=== PATIENT | female | born 1980 | race Caucasian/White ===

== ENCOUNTER 2024-09-18 08:37 | Emergency (ER) | payer OTHER, SELFPAY ==
--- NOTE | 2024-09-18 08:41 | ECG_ITS ---
Test Date: 2024-09-18 08:46:28 Measurements Intervals Cameron Rate: 90 P: 58 CT: 156 QRS: 57 QRSD: 93 T: 51 QT: 327 QTc: 402 Interpretive Statements SINUS RHYTHM NONSPECIFIC T-WAVE ABNORMALITY No previous ECG available for comparison Electronically Signed On 09-23-2024 10:14:39 BIOCHEMICAL ENGINEER by Jaime Samuels M.D.
[2024-09-18 08:54] VITALS: BP 113/76; PULSE 93; RESP 18; TEMP 37.1; O2SAT 95
[2024-09-18 08:59] LABS: Basophils Percent Auto 0.2 % (0.2-1.2); Eosinophils Percent Auto 0.6 % (0-4.4); Hematocrit 36.8 % (37.0-47.0); Hemoglobin 12.5 g/dL (12.0-15.0); Immature Granulocyte Absolute 0.01 K/mm3 (0.00-0.031); Immature Granulocyte Percent A 0.2 % (0-0.5); Lymphocytes Absolute Auto 0.68 K/mm3 (0.9-3.2); Lymphocytes Percent Auto 13.4 % (18.3-44.2); Mean Corpuscular Hemoglobin 29.5 pg (26-34); Mean Corpuscular Volume 86.8 fl (80-100); Mean Platelet Volume 9.1 fl (7.4-10.4); Monocytes Absolute Auto 0.3 K/mm3 (0.1-0.6); Monocytes Percent Auto 6.5 % (2.6-8.5); Neutrophils Percent Auto 79.1 % (45.5-73.1); Platelet Count Result 242 k/mm3 (150-375); Red Blood Count 4.24 M/mm3 (4.2-5.4); Red Cell Distribution Width 11.4 % (11.5-14.5); White Blood Count 5.1 K/mm3 (4.5-10.0)
[2024-09-18 09:11] LABS: INR 0.9; Prothrombin Time 12.7 Seconds (11.1-14.7)
[2024-09-18 09:12] LABS: Alanine Aminotransferase 11 U/L (6-35); Albumin Level 4.2 g/dL (3.5-5.1); Alkaline Phosphatase 67 U/L (38-126); Anion Gap 4 mmol/L (4-12); Aspartate Amino Transferase 19 U/L (14-36); Bilirubin,Total 0.5 mg/dL (0.2-1.3); Blood Urea Nitrogen 13 mg/dL (7-17); Calcium 8.7 mg/dL (8.4-10.2); Carbon Dioxide 28 mmol/L (22-30); Chloride 106 mmol/L (98-107); Estimated CRCL calculation 71 ml/min; Estimated Glomerular Filt Rate > 60; Glucose 98 mg/dL (65-110); Lipase 58 U/L (23-300); Partial Thromboplastin Time 32.5 Seconds (22.3-36.8); Potassium 3.5 mmol/L (3.4-5.0); Sodium 138 mmol/L (137-145)
[2024-09-18 09:23] LABS: Troponin I < 0.012 ng/mL (0.000-0.034)
--- NOTE | 2024-09-18 09:45 | PC.NURSE ---
Patient present to the desk and states she is going to leave due to wait time. this RN informed patient to come back to the ED if symptoms persist or get worse.
--- OUTSIDE RECORDS SUMMARY | 2024-09-25 03:33 | XMS_ITS | Encounter Summary ---
Author Organization [facility] Address [facility] [place] [address] Care Team Providers Care Drill Sergeant Name Role Phone Marcelo Garcia MD Primary Care Provider [phone] Reason for Visit * Reason Comments Eye Problem 3 days with discharg e and pain Encounter Details Date Type Department Care Team (Latest Contact Info) Description 08/13/2017 10:00 AM INSPECTOR AND TESTER Office Visit [facility] [place] [address] [place] [address] Provider, [facility] Exp Nameoki Acute bacterial conjunctivitis of left eye (Primary Dx) Social History Tobacco Use Types Packs/Day Years Used Date Smoking Tobacco: Former Smokeless Tobacco: Never Sex and Gender Information Value Date Recorded Sex Assigned at Not on file Gender Identity Not on file Sexual Orientation Not on file documented as of this encounter Last Filed Vital Signs Vital Sign Reading Time Taken Comments Blood Pressure 108/58 08/13/2017 10:05 AM INSPECTOR AND TESTER Pulse 81 08/13/2017 10:05 AM INSPECTOR AND TESTER Temperature 36.8 ??C (98.2 ??F) 08/13/2017 10:[address] Respiratory Rate - - Oxygen Saturation 99% 08/13/2017 10:05 AM INSPECTOR AND TESTER Inhaled Oxygen Concentration - - Weight 65.8 kg (145 lb) 08/13/2017 10:05 AM INSPECTOR AND TESTER Height 165.1 cm (5' 5 ) 08/13/2017 10:05 AM INSPECTOR AND TESTER Body Mass Index 24.13 08/13/2017 10:05 AM INSPECTOR AND TESTER documented in this encounter Patient Instructions * Patient Instructions* Pat Reno, LITHOGRAPHIC GENERAL WORKER-MACHINE FEATHEREDGER AND REDUCER - 08/13/2017 10:30 AM INSPECTOR AND TESTER Images from the original note were not included. Conjunctivitis FIELD MARKETER: Conjunctivitis, or pink eye, is inflammation of your conjunctiva. The conjunctiva is a thin tissue that covers the front of your eye and the back of your eyelids. The conjunctiva helps protect your eye and keep it moist. Conjunctivitis may be caused by bacteria, allergies, or a virus. If your conjun ctivitis is caused by bacteria, it may get better on its own in about 7 days. Viral conjunctivitis can last up to 3 weeks. Common symptoms may include any of the following: You will usually have symptoms in both eyes if your conjunctivitis is caused by allergies. You may also have other allergic symptoms, such as a rash or runny nose. Symptoms will usually start in 1 eye if your conjunctivitis is caused by a virus or bacteria. ?? Redness in the whites of your eye ?? Itching in your eye or around your eye ?? Feeling like there is something in your eye ?? Watery or thick, sticky discharge ?? Crusty eyelids when you wake up in the morning ?? Burning, stinging, or swelling in your eye ?? Pain when you see bright light Seek care immediately if: ?? You have worsening eye pain. ?? The swelling in your eye gets worse, even after treatment. ?? Your vision suddenly becomes worse or you cannot see at all. Contact your healthcare provider if: ?? You develop a fever and ear pain. ?? You have tiny bumps or spots of blood on your eye. ?? You have questions or concerns about your condition or care. Treatment will depend on the cause of your conjunctivitis. You may need antibiotics or allergy medicine as a pill, eye drop, or eye ointment. Manage your symptoms: ?? Apply a cool compress. Wet a washcloth with cold water and place it on your eye. This will help decrease itching and irritation. ?? Do not wear contact lenses. They can irritate your eye. Throw away the pair you are using and ask when you can wear them again. Use a new pair of lenses when your healthcare provider says it is okay. ?? Avoid irritants. Stay away from smoke filled areas. Shield your eyes from wind and sun. ?? Flush your eye. You may need to flush your eye with saline to help decrease your symptoms. Ask for more information on how to flush your eye. Medicines: Treatment depends on what is causing your conjunctivitis. You may be given any of the following: ?? Allergy medicine helps decrease itchy, red, swollen eyes caused by allergies. It may be given asa pill, eye drops, or nasal spray. ?? Antibiotics may be needed if your conjunctivitis is caused by bacteria. This medicine may be given as a pill, eye drops, or eye ointment. ?? Take your medicine as directed. Contact your healthcare provider if you think your medicine is not helping or if you have side effects. Tell him or her if you are allergic to any medicine. Keep a list of the medicines, vitamins, and herbs you take. Include the amounts, and when and why you take them. Bring the list or the pill bottles to follow-up visits. Carry your medicine list with you in case of an emergency. Prevent the spread of conjunctivitis: ?? Wash your hands with soap and water often. Wash your hands before and after you touch your eyes.Also wash your hands before you prepare or eat food and after you use the bathroom or change a diaper. ?? Avoid allergens. Try to avoid the things that cause your allergies, such as pets, dust, or grass. ?? Avoid contact with others. Do not share towels or washcloths. Try to stay away from others as much as possible. Ask when you can return to work or school. ?? Throw away eye makeup. The bacteria that caused your conjunctivitis can stay in eye makeup. Throw away mascara and other eye makeup. ?? 2016 [employer]. Information is for End User's use only and may not be sold, redistributed or otherwise used for commercial purposes. All illustrations and images included in CareNotes?? are the copyrighted property of [employer] or [employer]. The above information is an caterer's aide only. It is not intended as medical advice for individual conditions or treatments. Talk to your doctor, nurse or pharmacist before following any medical regimen to see if it is safe and effective for you. Ciprofloxacin (Into the eye) Ciprofloxacin (fqh-wgw-XSOR-a-sin) Treats eye infections. This medicine is a quinolone antibiotic. Brand Name(s): Ciloxan There may be other brand names for this medicine. When This Medicine Should Not Be Used: This medicine is not right for everyone. Do not use it if you had an allergic reaction to ciprofloxacin or other quinolone antibiotics. How to Use This Medicine: Ointment, Drop ?? Your doctor will tell you how much of this medicine to use and how often. Do not use more medicine or use it more often than your doctor tells you to. ?? Take all of the medicine in your prescription to clear up your infection, even if you feel better after the first few doses. ?? If you wear soft contacts, take them out before you put the drops in your eyes. You may need to wait at least 15 minutes before you put in your contacts. The eyedrops may contain benzalkonium chloride, which can coat soft contact lenses. You may not be able to wear your contacts at all until your infection is gone. ?? Wash your hands with soap and water before and after using this medicine. ?? Lie down or tilt your head back. With your index finger, pull down the lower lid of your eye to form a pocket. ?? To use the eye drops: Hold the dropper close to your eye with the other hand. Drop the correct number of drops into the pocket made between your lower lid and eyeball. Gently close your eyes. Place your index finger over the inner corner of your eye for 1 minute. Do not rinse or wipe the dropperor allow it to touch anything, including your eye. Put the cap on the bottle right away. Keep the jose ttle upright when you are not using it. ?? To use the ointment: Hold the tip of the tube close to your eye with the other hand. Avoid touching the tip of the tube to your eye or finger. Squeeze a ribbon of ointment into the pocket between your lower lid and eyeball. Close your eyes for 1 to 2 minutes. Wipe the tip with a clean tissue andclose the tube tightly. Keep the tube tightly closed when you are not using it. ?? Missed dose: Take a dose as soon as you remember. If it is almost time for your next dose, wait until then and take a regular dose. Do not take extra medicine to make up for a missed dose. ?? Store the medicine in a closed container at room temperature, away from heat, moisture, and direct light. Drugs and Foods to Avoid: Ask your doctor or pharmacist before using any other medicine, including iyxl-iel-cbgrnjg medicines, vitamins, and herbal products. ?? Check with your doctor before you put any other medicine in your eyes. Warnings While Using This Medicine: ?? Tell your doctor if you are or . ?? Keep all medicine out of the reach of children. Never share your medicine with anyone. Possible Side Effects While Using This Medicine: Call your doctor right away if you notice any of these side effects: ?? Allergic reaction: Itching or hives, swelling in your face or hands, swelling or tingling in your mouth or throat, chest tightness, trouble breathing ?? Blurred vision ?? Severe eye redness, itching, or swelling that was not there before you started using the medicine If you notice these less serious side effects, talk with your doctor: ?? Bitter or bad taste in your mouth ?? Crusting or white crystals in the corners of your eyes ?? Feeling as if something is in your eyes If you notice other side effects that you think are caused by this medicine, tell your doctor. Call your doctor for medical advice about side effects. You may report side effects to FDA at 4-800- ?? 2016 [employer]. Information is for End User's use only and may not be sold, redistributed or otherwise used for commercial purposes. The above information is an caterer's aide only. It is not intended as medical advice for individual conditions or treatments. Talk to your doctor, nurse or pharmacist before following any medical regimen to see if it is safe and effective for you. ECTOR AND TESTER documented in this encounter Progress Notes * Pat Reno APRN-CNP - 08/13/2017 10:16 AM CST Office Visit .Drea Caal is a .37 y.o. .female patient, here for: . Chief Complaint Patient presents with ??? Eye Problem 3 days with discharge and pain .HPI Comments: Patient complains of eye drainage for the past 3 days. Associated symptoms include: pain, tearing and blurring of vision. She denies fever, chills, cough, nasal congestion and light sensitivity. She has taken Ibuprofen which helped with the discomfort. She denies seasonal allergies. She admits her children had pink eye like a month ago . .Review of Systems Constitutional: Negative. HENT: Negative. Eyes: Positive for blurred vision, pain, discharge and redness. Negative for double vision and photophobia. Denies eye itching Respiratory: Negative for cough. Neurological: Negative for dizziness and headaches. Endo/Heme/Allergies: Negative for environmental allergies. Medications reviewed. Outpatient Prescriptions Marked as Taking for the 08/13/17 encounter (Office Visit) with Provider, Shanti Exp Nameoki Medication Sig ??? ciprofloxacin 0.3% (CILOXAN) 0.3 % ophthalmic solution Instill 2 drops into left eye every 4 hours while awake for 7 days .No Known Allergies . Past Medical History: Diagnosis Date ??? No known problems There is no problem list on file for this patient. . Past Surgical History: Procedure Laterality Date ??? OPEN REDUCTION, ELBOW ??? Tonsillectomy ??? [place] Tooth Extraction . History Smoking Status ??? Former Smoker Smokeless Tobacco ??? Never Used BP 108/58 (BP SITE: LEFT ARM, BP POSITION: SITTING, BP CUFF SIZE: Adult) Pulse 81 Temp 98.2 ??F (Oral) Ht 1.651 m (5' 5 ) Wt 65.8 kg (145 lb) SpO2 99% BMI 24.13 kg/m2. .Physical Exam Constitutional: She is oriented to person, place, and time and well-developed, well-nourished, and in no distress. Vital signs are normal. She does not have a sickly appearance. No distress. HENT: Head: Normocephalic and atraumatic. Right Ear: Tympanic membrane, external ear and ear canal normal. Left Ear: Tympanic membrane, external ear and ear canal normal. Nose: Nose normal. Right sinus exhibits no maxillary sinus tenderness and no frontal sinus tenderness. Left sinus exhibits no maxillary sinus tenderness and no frontal sinus tenderness. Mouth/Throat: Oropharynx is clear and moist. Eyes: Conjunctivae and EOM are normal. Pupils are equal, round, and reactive to light. Left eye exhibits discharge and exudate. Snellen results 20/16 Right eye 20/20 Left eye 20/16 both eyes with glasses. Green thick discharge in inner canthus left eye. Tearing present as well. Neck: Normal range of motion. Neck supple. Cardiovascular: Normal rate, regular rhythm and normal heart sounds. Pulmonary/Chest: Effort normal and breath sounds normal. No respiratory distress. Lymphadenopathy: Head (right side): No submental, no submandibular, no tonsillar, no preauricular, no posterior auricular and no occipital adenopathy present. Head (left side): No submental, no submandibular, no tonsillar, no preauricular, no posterior auricular and no occipital adenopathy present. She has no cervical adenopathy. Right: No supraclavicular adenopathy present. Left: No supraclavicular adenopathy present. Neurological: She is oriented to person, place, and time. Skin: Skin is warm and dry. She is not diaphoretic. Vitals reviewed. ASSESSMENT: . Encounter Diagnoses Name Primary? Acute bacterial conjunctivitis of left eye Yes PLAN: . Orders Placed This Encounter ??? ciprofloxacin 0.3% (CILOXAN) 0.3 % ophthalmic solution Sig: Instill 2 drops into left eye every 4 hours while awake for 7 days Dispense: 5 mL Refill: 0 Education materials provided on conjunctivitis and Ciprofloxacin drops. -Keep hands clean and away from eyes. -Do not use contact lenses during illness -Throw away any disposable contacts, make-up, false eyelashes, or anything else that might have recently come in contact with your eye(s) -If infection spreads to other eye, start using prescribed drops or ointment in both eyes, as directed. -Contagious precautions -May use warm compress to eye for comfort -Reviewed education materials and instructions with patient and answered all questions. -Follow up with Dr Garcia if symptoms worsen or do not completley resolve Seek immediate treatment from ER or screen printer if any vision changes occur, including, but notlimited to, pain, spots before eyes, decreased visual acuity, sensitivity to light, or any other visual changes. TETE Hodge 10:34 AM 08/13/17 After Visit Summary reviewed with patient. The patient Drea Caal indicates understanding of these issues and agrees with the plan. Patient discharged to Home ECTOR AND TESTER documented in this encounter Plan of Treatment Not on file documented as of this encounter Visit Diagnoses Diagnosis Acute bacterial conjunctivitis of left eye- Primary documented in this encounter Care Teams Drill Sergeant Relationship Specialty Start Date End Date Marcelo Garcia MD [address] [address] PCP - General Internal Medicine 08/13/17 documented as of this encounter
--- OUTSIDE RECORDS SUMMARY | 2024-09-25 03:33 | XMS_ITS | Encounter Summary ---
Author Organization [facility] Address [facility] [facility] [place] [address] Care Team Providers Care Fast Food Crew Member Name Role Phone Unavailable Primary Care Provider Unavailabl e Reason for Visit * Reason Onset Date Comments Follow-up 08/17/2016 Encounter Details Date Type Department Care Team (Late st Contact Info) Description 08/17/2016 Telephone [facility] [place] [address] [place] [address] Provider, Shanti Cruz Nameoki Follow-up Social History Tobacco Use Types Packs/Day Years Used Date Smoking Tobacco: Never Sex and Gender Information Value Date Recorded Sex Assigned at Not on file Gender Identity Not on file Sexual Orientation Not on file documented as of this encounter Plan of Treatment Not on file documented as of this encounter Visit Diagnoses Not on filedocumented in this encounter
--- OUTSIDE RECORDS SUMMARY | 2024-09-25 03:33 | XMS_ITS | Encounter Summary ---
Author Organization [facility] Address [address] [facility] [place] [address] Care Team Providers Care Chemical Laboratory Chief Name Role Phone Marcelo Garcia MD Primary Care Provider [phone] Reason for Visit * Reason Onset Date Comments Follow-up 08/15/2017 Encounter Details Date Type Department Care Team (Late st Contact Info) Description 08/15/2017 Telephone [facility] [address] [address] Camryn Silva Follow-up Social History Tobacco Use Types Packs/Day Years Used Date Smoking Tobacco: Former Smokeless Tobacco: Never Sex and Gender Information Value Date Recorded Sex Assigned at Not on file Gender Identity Not on file Sexual Orientation Not on file documented as of this encounter Plan of Treatment Not on file documented as of this encounter Visit Diagnoses Not on filedocumented in this encounter Care Teams Chemical Laboratory Chief Relationship Specialty Start Date End Date Marcelo Garcia MD [address] [address] PCP - General Internal Medicine 08/13/17 documented as of this encounter
--- OUTSIDE RECORDS SUMMARY | 2024-09-25 03:33 | XMS_ITS | Patient Health Summary ---
Author Organization [email or web address] Address [address] [place] [address] Care Team Providers Care Seo Engineer Name Role Phone Marcelo Garcia MD Primary Care Provider [phone] Note from [facility],non-owned Affiliates and Associated Physician Practices is amultiple site organization consisting of ambulatory clinics and hospital sitesin [place], [place], [place] and [place]. This disclosure is being madepursuant to the Care Everywhere program and may not contain all information available regarding this patient. Last updated 18.[email or web address] Allergies No known active allergies Medications Be aware that medications may not be up to date on this document. Always verify current medications with the patient. No known medications Social History Tobacco Use Types Packs/Day Years Used Date Smoking Tobacco: Former Smokeless Tobacco: Never Sex and Gender Information Value Date Recorded Sex Assigned at Not on file Gender Identity Not on file Sexual Orientation Not on file Last Filed Vital Signs Vital Sign Reading Time Taken Comments Blood Pressure 108/58 08/13/2017 10:05 AM PSYCHIATRIC CNS Pulse 81 08/13/2017 10:05 AM PSYCHIATRIC CNS Temperature 36.8 ??C (98.2 ??F) 08/13/2017 10:[address] Respiratory Rate 18 08/15/2016 9:13 AM PSYCHIATRIC CNS Oxygen Saturation 99% 08/13/2017 10:05 AM PSYCHIATRIC CNS Inhaled Oxygen Concentration - - Weight 65.8 kg (145 lb) 08/13/2017 10:05 AM PSYCHIATRIC CNS Height 165.1 cm (5' 5 ) 08/13/2017 10:05 AM PSYCHIATRIC CNS Body Mass Index 24.13 08/13/2017 10:05 AM PSYCHIATRIC CNS Procedures * STREP A SCREEN - POINT OF CARE (AMB) STL(Performed 08/15/2016) Performed for Strep throat Results * (ABNORMAL) STREP A SCREEN (08/15/2016 9:22 AM PSYCHIATRIC CNS) Strep A Rapid POCT Positive(A) Negative Strep A Internal Control Present Lot # [id number] Expiration Date [id number] Throat ENTIRE THROAT (SURFACE REGION OF NECK) / Unknown 08/15/2016 9:22 AM PSYCHIATRIC CNS Melia Lozano CUSTOMER CARE MANAGER-RN RADIATION LAB - POINT O F CARE ORDERABLES Care Teams Seo Engineer Relationship Specialty Start Date End Date Marcelo Garcia MD [address] [address] PCP - General Internal Medicine 08/13/17
--- OUTSIDE RECORDS SUMMARY | 2024-09-25 03:33 | XMS_ITS | Referral Summary ---
Author Organization [facility] Address [address] [facility] [place] [address] Care Team Providers Care Ruby Software Developer Name Role Phone Marcelo Garcia MD Primary Care Provider [phone] Source Comments [facility],non-owned Affiliates and Associated Physician Practices is amultiple site organization consisting of ambulatory clinics and hospital sitesin [place], [place], [place] and [place]. This disclosure is being madepursuant to the Care Everywhere program and may not contain all information available regarding this patient. Last updated 18.[employer] [facility] Allergies No known active allergies Medications Be [...] Comments Blood Pressure 108/58 08/13/2017 10:05 AM SALES AND SERVICE ASSOCIATE Pulse 81 08/13/2017 10:05 AM SALES AND SERVICE ASSOCIATE Temperature 36.8 ??C (98.2 ??F) 08/13/2017 10:[address] Respiratory Rate 18 08/15/2016 9:13 AM SALES AND SERVICE ASSOCIATE Oxygen Saturation 99% 08/13/2017 10:05 AM SALES AND SERVICE ASSOCIATE Inhaled Oxygen Concentration - - Weight 65.8 kg (145 lb) 08/13/2017 10:05 AM SALES AND SERVICE ASSOCIATE Height 165.1 cm (5' 5 ) 08/13/2017 10:05 AM SALES AND SERVICE ASSOCIATE Body Mass Index 24.13 08/13/2017 10:05 AM SALES AND SERVICE ASSOCIATE Plan of Treatment Not on file Care Teams Ruby Software Developer Relationship Specialty Start Date End Date Marcelo Garcia MD [address] [address] PCP - General Internal Medicine 08/13/17
--- OUTSIDE RECORDS SUMMARY | 2024-09-25 03:33 | XMS_ITS | Encounter Summary ---
Author Organization [facility] Address [facility] [place] [address] Care Team Providers Care Dormitory Counselor Name Role Phone Unavailable Primary Care Provider Unavailabl e Reason for Visit * Reason Comments Fever Sore Throat Encounter Details Date Type Department Care Team (Late st Contact Info) Description 08/15/2016 9:00 AM INSTRUMENT REPAIRER Office Visit [facility] [address] [place] [address] Provider, Shanti Exp [address] Strep throat (Primary Dx) Social History Tobacco Use Types Packs/Day Years Used Date Smoking Tobacco: Never Sex and Gender Information Value Date Recorded Sex Assigned at Not on file Gender Identity Not on file Sexual Orientation Not on file documented as of this encounter Last Filed Vital Signs Vital Sign Reading Time Taken Comments Blood Pressure 104/62 08/15/2016 9:13 AM INSTRUMENT REPAIRER Pulse 98 08/15/2016 9:13 AM INSTRUMENT REPAIRER Temperature 36.8 ??C (98.2 ??F) 08/15/2016 9:13 AM CS T Respiratory Rate 18 08/15/2016 9:13 AM INSTRUMENT REPAIRER Oxygen Saturation - - Inhaled Oxygen Concentration - - Weight 65.8 kg (145 lb) 08/15/2016 9:13 AM INSTRUMENT REPAIRER Height 165.1 cm (5' 5 ) 08/15/2016 9:13 AM INSTRUMENT REPAIRER Body Mass Index 24.13 08/15/2016 9:13 AM INSTRUMENT REPAIRER documented in this encounter Patient Instructions * Patient Instructions* Melia Lozano APRN-THEATER MANAGER - 08/15/2016 9:27 AM INSTRUMENT REPAIRER Images from the original note were not included. Strep Throat WHAT YOU NEED TO KNOW: Strep throat is a throat infection caused by bacteria. It is easily spread from person to person. DISCHARGE INSTRUCTIONS: Call 911 for any of the following: ?? You have trouble breathing. Seek care immediately if: ?? You have new symptoms like a bad headache, stiff neck, chest pain, or vomiting. ?? You are drooling because you cannot swallow your spit. Contact your healthcare provider if: ?? You have a fever. ?? You have a rash or ear pain. ?? You have green, yellow-brown, or bloody mucus when you cough or blow your nose. ?? You are unable to drink anything. Medicines: ?? Antibiotics help treat your strep throat. You should feel better within 2 to 3 days after you start antibiotics. ?? Take your medicine as directed. Call your healthcare provider if you think your medicine is not helping or if you have side effects. Tell him if you are allergic to any medicine. Keep a list of the medicines, vitamins, and herbs you take. Include the amounts, and when and why you take them. Bring the list or the pill bottles to follow-up visits. Carry your medicine list with you in case of an emergency. Manage your symptoms: ?? Rest more than usual. ?? Do not smoke. ?? Drink juice, milk shakes, tea, or soup if your throat is too sore to eat solid food. ?? Gargle with a small amount of warm salt water. Mix 1 teaspoon of salt and 1 cup of warm water tomake salt water. ?? Suck on crushed ice, hard candy, cough drops, or throat lozenges. Return to work or school 24 hours after you start antibiotic medicine. Prevent the spread of strep throat: ?? Do not share food or drinks. ?? Wash your hands often. ?? Replace your toothbrush after you have taken antibiotics for 24 hours. Follow up with your healthcare provider as directed: Write down your questions so you remember to ask them during your visits. ?? 2016 [employer]. Information is for End User's use only and may not be sold, redistributed or otherwise used for commercial purposes. All illustrations and images included in CareNotes?? are the copyrighted property of [employer] or [employer]. The above information is an educational institution president only. It is not intended as medical advice for individual conditions or treatments. Talk to your doctor, nurse or pharmacist before following any medical regimen to see if it is safe and effective for you. RUMENT REPAIRER documented in this encounter Progress Notes * Melia Lozano APRN-CNP - 08/15/2016 9:22 AM CST [facility] Chief Complaint Patient presents with ??? Fever ??? Sore Throat SUBJECTIVE: General The history is provided by the patient. This is a new problem. The current episode started 2 days ago. The problem occurs constantly. The problem has been gradually worsening. The pain is at a severity of 7/10. Associated symptoms include headaches. The symptoms are aggravated by swallowing. The symptoms are relieved by Tylenol. above symptoms x 2 days No past medical history on file. No current outpatient prescriptions on file prior to visit. No current facility-administered medications on file prior to visit. No past surgical history on file. History Social History ??? Marital status: Spouse name: N/A ??? Number of children: N/A ??? Years of education: N/A Occupational History ??? Not on file. Social History Main Topics ??? Smoking status: Never Smoker ??? Smokeless tobacco: Not on file ??? Alcohol use: Not on file ??? Drug use: Not on file ??? Sexual activity: Not on file Other Topics Concern ??? Not on file Social History Narrative ??? No narrative on file No family history on file. Current Outpatient Prescriptions Medication Sig Dispense Refill ??? amoxicillin (AMOXIL) 875 MG tablet Take 1 Tab by mouth 2 times daily for 10 days 20 Tab 0 No current facility-administered medications for this visit. No Known Allergies REVIEW OF SYSTEMS: Review of Systems Constitutional: Positive for chills and fever. 102.5, aches HENT: Positive for congestion, ear pain and sore throat. Ear pressure, PND, swollen glands Respiratory: Positive for cough. Gastrointestinal: Positive for nausea. Negative for diarrhea and vomiting. Neurological: Positive for dizziness and headaches. OBJECTIVE: General appearance: alert, well appearing, and in no distress. BP 104/62 (BP SITE: LEFT ARM, BP POSITION: SITTING, BP CUFF SIZE: Adult) Pulse 98 Temp 98.2 ??F (Oral) Resp 18 Wt 65.8 kg (145 lb) BMI 24.13 kg/m2 Physical Exam Constitutional: She is oriented to person, place, and time and well-developed, well-nourished, and in no distress. HENT: Head: Normocephalic and atraumatic. Erythema posterior pharynx Neck: Normal range of motion. Neck supple. Cardiovascular: Normal rate and regular rhythm. Pulmonary/Chest: Effort normal and breath sounds normal. Lymphadenopathy: She has cervical adenopathy. Neurological: She is alert and oriented to person, place, and time. Vitals reviewed. ASSESSMENT: Office Visit on 08/15/16 STREP A SCREEN Result Value Ref Range Strep A Rapid Positive (Abnormal) Negative Strep A INTERNAL CONTROL Present Lot Number [id number] Expiration Date [id number] Encounter Diagnosis Name Primary? Strep throat Yes PLAN: Warm salt water gargles Tylenol or Motrin as needed Can use Claritin or Zyrtec as needed for nasal drainage Change toothbrush 3 days after start of antibiotic Contagious x 24 hours Orders Placed This Encounter ??? STREP A SCREEN ??? amoxicillin (AMOXIL) 875 MG tablet Sig: Take 1 Tab by mouth 2 times daily for 10 days Dispense: 20 Tab Refill: 0 RUMENT REPAIRER documented in this encounter Plan of Treatment Not on file documented as of this encounter Procedures Procedure Name Priority Date/Time Associated Diagnosis Comments STREP A SCREEN - POINT OF CARE (AMB) STL Routine 08/15/2016 9:22 AM INSTRUMENT REPAIRER Strep throat documented in this encounter Results * (ABNORMAL) STREP A SCREEN (08/15/2016 9:22 AM INSTRUMENT REPAIRER) Strep A Rapid POCT Positive(A) Negative Strep A Internal Control Present Lot # [id number] Expiration Date [id number] Throat ENTIRE THROAT (SURFACE REGION OF NECK) / Unknown 08/15/2016 9:22 AM INSTRUMENT REPAIRER [facility] - POINT O F CARE ORDERABLES documented in this encounter Visit Diagnoses Diagnosis Strep throat- Primary Streptococcal sore throat documented in this encounter
--- OUTSIDE RECORDS SUMMARY | 2024-09-25 03:33 | XMS_ITS | Clinical Summary ---
Author Organization [facility] Address [address] [place] [address] Care Team Providers Care Edge Brusher Name Role Phone Marcelo Garcia MD Primary Care Provider [phone] Source Comments [facility],non-owned Affiliates and Associated Physician Practices is amultiple site organization consisting of ambulatory clinics and hospital sitesin [place], [place], [place] and [place]. This disclosure is being madepursuant to the Care Everywhere program and may not contain all information available regarding this patient. Last updated 18.[facility] Allergies No known active allergies Medications Be [...] Comments Blood Pressure 108/58 08/13/2017 10:05 AM TIRE BUFFER Pulse 81 08/13/2017 10:05 AM TIRE BUFFER Temperature 36.8 ??C (98.2 ??F) 08/13/2017 10:[address] Respiratory Rate 18 08/15/2016 9:13 AM TIRE BUFFER Oxygen Saturation 99% 08/13/2017 10:05 AM TIRE BUFFER Inhaled Oxygen Concentration - - Weight 65.8 kg (145 lb) 08/13/2017 10:05 AM TIRE BUFFER Height 165.1 cm (5' 5 ) 08/13/2017 10:05 AM TIRE BUFFER Body Mass Index 24.13 08/13/2017 10:05 AM TIRE BUFFER Plan of Treatment Health Maintenance Due Date Last Done Comments LIPID TESTING 1981 MAMMOGRAM 1981 PAP SMEAR 1981 HIV SCREENING 02/15/1996 HEPATITIS C SCREENING 02/10/1999 DTAP/TDAP/TD VACCINES (1 - Tdap) 02/15/2000 HEPATITIS B VACCINE (1 of 3 - 19+ 3-dose series) 02/15/2000 DEPRESSION SCREENING 09/18/2023 COVID-19 VACCINE (1 - 2023-2 5 season) 2024 INFLUENZA VACCINE (#1) 2024 ZOSTER VACCINE (1 of 2) 2031 HIB VACCINE Aged Out No longer eligi ble based on patient's age to complete this topic HPV VACCINE Aged Out No longer eligi ble based on patient's age to complete this topic MENINGOCOCCAL VACCINE Aged Out No mason jack eligible based on patient's age to complete this topic PNEUMOCOCCAL VACCINE Aged Out No long er eligible based on patient's age to complete this topic Care Teams Edge Brusher Relationship Specialty Start Date End Date Marcelo Garcia MD [address] [address] PCP - General Internal Medicine 08/13/17
--- OUTSIDE RECORDS SUMMARY | 2024-09-25 04:57 | XMS_ITS | Clinical Summary ---
Author Organization [facility] Address [address] [facility] [place] [address] Care Team Providers Care Supervisor Lending Activities Name Role Phone Marcelo Garcia MD Primary Care Provider [phone] Source Comments [facility],non-owned Affiliates and Associated Physician Practices is amultiple site organization consisting of ambulatory clinics and hospital sitesin [place], [place] and [place]. This disclosure is being madepursuant to the Care Everywhere program and may not contain all information available regarding this patient. Last updated 18.[facility] Allergies No known active allergies Medications Be [...] Comments Blood Pressure 108/58 08/13/2017 10:05 AM RACK CLEANER Pulse 81 08/13/2017 10:05 AM RACK CLEANER Temperature 36.8 ??C (98.2 ??F) 08/13/2017 10:[address] Respiratory Rate 18 08/15/2016 9:13 AM RACK CLEANER Oxygen Saturation 99% 08/13/2017 10:05 AM RACK CLEANER Inhaled Oxygen Concentration - - Weight 65.8 kg (145 lb) 08/13/2017 10:05 AM RACK CLEANER Height 165.1 cm (5' 5 ) 08/13/2017 10:05 AM RACK CLEANER Body Mass Index 24.13 08/13/2017 10:05 AM RACK CLEANER Plan of Treatment Health Maintenance Due Date [...] age to complete this topic Care Teams Supervisor Lending Activities Relationship Specialty Start Date End Date Marcelo Garcia MD [address] [address] PCP - General Internal Medicine 08/13/17
--- OUTSIDE RECORDS SUMMARY | 2024-09-25 04:57 | XMS_ITS | Encounter Summary ---
Author Organization [facility] Address [address] [place] [address] Care Team Providers Care Stitch Cleaner Name Role Phone Marcelo Garcia MD Primary Care Provider [phone] Encounter Details Date Type Department Care Team (Latest Contact Info) Description 02/26/2024 9:23 AM CDT - 02/26/2024 11:59 PM CDT Hospital Encounter [address] [address] Discharge Disposition: Discharge to home or self care Social History Tobacco Use Types Packs/Day Years Used Date Smoking Tobacco: Former Smokeless Tobacco: Never Alcohol Use Standard Drinks/Week Comments Yes 0 (1 standard drink = 0.6 oz pur e alcohol) socially PHQ-2 Answer Date Recorded PHQ-2 Total Score (If total score is 3 or more points, staff should administer the PHQ-9) 0 02/26/2024 Comments No Sex and Gender Information Value Date Recorded Sex Assigned at Not on file Legal Sex Female 7:02 AM AIRCRAFT CHARTER DISPATCHER Gender Identity Female 09/15/2021 9:12 AM AIRCRAFT CHARTER DISPATCHER Sexual Orientation Straight 09/15/2021 9: 12 AM AIRCRAFT CHARTER DISPATCHER documented as of this encounter Medications at Time of Discharge ALPRAZolam (XANAX) 0.25 mg tablet Take 1 tablet (0.25 mg total) by mouth daily as needed for anxiety 30 tablet 5 02/26/2024 09/20/2024 documented as of this encounter Discharge Disposition Disposition Code Departure Means Destination Discharge to home or self care documented in this encounter Plan of Treatment Not on file documented as of this encounter Visit Diagnoses Not on filedocumented in this encounter Care Teams Stitch Cleaner Relationship Specialty Start Date End Date Marcelo Garcia MD [address] [address] PCP - General 09/13/12 documented as of this encounter
--- OUTSIDE RECORDS SUMMARY | 2024-09-25 04:57 | XMS_ITS | Encounter Summary ---
Author Organization [facility] Address [address] [place] [address] Care Team Providers Care Buyer Internship Name Role Phone Marcelo Garcia MD Primary Care Provider [phone] Reason for Visit * Reason Comments Dizziness Encounter Details Date Type Department Care Team (Late st Contact Info) Description 09/15/2021 11:45 AM HEEL BURNISHER Telemedicine [facility] Medical [facility] Virtual Care [address] [place] [id number] Yvonne Mayen NP [address] [place] [id number] Vertigo (Primary Dx) Social History Tobacco Use Types Packs/Day Years Used Date Smoking Tobacco: Former Smokeless Tobacco: Never Alcohol Use Standard Drinks/Week Comments Yes 0 (1 standard drink = 0.6 oz pur e alcohol) socially PHQ-2 Answer Date Recorded PHQ-2 Total Score (If total score is 3 or more points, staff should administer the PHQ-9) 0 08/19/2021 Comments No Sex and Gender Information Value Date Recorded Sex Assigned at Not on file Legal Sex Female 7:02 AM HEEL BURNISHER Gender Identity Female 09/15/2021 9:12 AM HEEL BURNISHER Sexual Orientation Straight 09/15/2021 9: 12 AM HEEL BURNISHER documented as of this encounter Patient Instructions * Patient Instructions* Yvonne Mayen NP - 09/15/2021 11:45 AM HEEL BURNISHER Images from the original note were not included. Follow up with your primary care provider in 5-7 days if no improvement in your symptoms or sooner if they worsen. *Modified Jessie maneuver for self-treatment of benign positional vertigo (left) This maneuver should be carried out three times a day. Repeat this daily until you are free from positional vertigo for 24 hours. *Modified Jessie maneuver for self-treatment of benign positional vertigo (right) This maneuver should be carried out three times a day. Repeat this daily until you are free from positional vertigo for 24 hours. BURNISHER documented in this encounter Ordered Prescriptions Prescription Sig Dispense Quantity Refills Last Filled Start Date End Date meclizine (ANTIVERT) 25 mg tablet Take 1 tablet (25 mg total) by mouth 3 (three) times a day as needed for dizziness CAUTION: MAY CAUSE DROWSINESS. 20 tablet 09/15/2021 2 documented in this encounter Progress Notes * Yvonne Mayen NP - 09/15/2021 11:45 AM CST Images from the original note were not included. [facility] On-Demand Video Visit This was a telemedicine visit with Drea Caal alone which took place via real-time video connection with [employer]. During the visit, I was located in the office and [facility]. The patient visit started at 1150 and ended at 1158. My total encounter time on 09/15/2021 was 15 minutes which was spent in the activities documented in the note. Thisincludes time spent prior to the visit and after the visit in direct care of the patient. This timedoes not include time spent in any separately reportable services.. The patient has been informed that the visit may not be secure and acknowledged the information. I have explained the option of participating in a telephone or video visit during the COVID-19 public health emergency to the patient. After being given an opportunity to ask questions about and discuss this type of visit, the patient verbally consented to proceeding with the telephone/video visit.The patient understands that this service replaces an office visit and they may be billed and/or responsible for any applicable copayments. Subjective/Objective Patient ID: Drea Caal is a 41 y.o. female. Chief Complaint Chief Complaint Patient presents with ??? Dizziness HPI Presents via video visit with c/o dizziness since last night. First noticed it when rolling over inbed. Feels like the room is shifted whenever she moves. Associated nausea. Emesis x1 last night; none today. Denies recent injury or trauma. Has dry nasal passages but denies sinus/allergy/uri symptoms. Denies recent head trauma or surgical procedure. Dizziness This is a new problem. The current episode started yesterday. The problem occurs constantly. The problem has been unchanged. Associated symptoms include nausea, vertigo and vomiting. Pertinent negatives include no abdominal pain, chills, congestion, coughing, fatigue, fever, headaches, myalgias, numbness, sore throat, visual change or weakness. Exacerbated by: movement. She has tried rest for thesymptoms. The treatment provided no relief. Past Medical History: Diagnosis Date ??? HX OTHER MEDICAL elbow fracture Past Surgical History: Procedure Laterality Date ??? ORIF ELBOW FRACTURE Left 2006 ??? TONSILLECTOMY 2000 ??? WISDOM TOOTH EXTRACTION 1997 HOME MEDICATIONS : ALPRAZolam (XANAX) 0.25 mg tablet ciprofloxacin (CILOXAN) 0.3 % ophthalmic solution fluocinonide (LIDEX) 0.05 % external solution griseofulvin (CARLOS-PEG) 250 mg tablet meclizine (ANTIVERT) 25 mg tablet Allergies Allergen Reactions ??? Penicillins Review of Systems Constitutional: Negative for chills, fatigue and fever. HENT: Negative for congestion, rhinorrhea, sinus pressure, sore throat and tinnitus. Eyes: Negative for visual disturbance. Respiratory: Negative for cough. Gastrointestinal: Positive for nausea and vomiting. Negative for abdominal pain. Musculoskeletal: Negative for myalgias. Neurological: Positive for dizziness and vertigo. Negative for syncope, facial asymmetry, speech difficulty, weakness, light-headedness, numbness and headaches. There were no vitals taken for this visit. Physical Exam Constitutional: General: She is not in acute distress. Appearance: She is not ill-appearing or toxic-appearing. Pulmonary: Effort: Pulmonary effort is normal. No respiratory distress. Neurological: Mental Status: She is alert and oriented to person, place, and time. Cranial Nerves: No dysarthria or facial asymmetry. Exam limited d/t nature of visit. Diagnoses and all orders for this visit: Vertigo (Primary) Start Meclizine (discussed risks of drowsiness) and Jessie maneuvers. Push fluids. Follow up with PCP in 5-7 days if no improvement. Other orders - meclizine (ANTIVERT) 25 mg tablet; Take 1 tablet (25 mg total) by mouth 3 (three) times a day as needed for dizziness CAUTION: MAY CAUSE DROWSINESS. Yvonne Mayen DNP, TECHNICAL RESEARCH SCIENTIST, AIRPORT CLERK-C BURNISHER documented in this encounter Plan of Treatment Not on file documented as of this encounter Visit Diagnoses Diagnosis Vertigo- Primary Dizziness and giddiness documented in this encounter Care Teams Buyer Internship Relationship Specialty Start Date End Date Marcelo Garcia MD [address] [address] PCP - General 09/13/12 documented as of this encounter
--- OUTSIDE RECORDS SUMMARY | 2024-09-25 04:57 | XMS_ITS | Encounter Summary ---
Author Organization [facility] Address [address] [place] [address] Care Team Providers Care Water Manager Name Role Phone Marcelo Garcia MD Primary Care Provider [phone] Reason for Visit * Reason Onset Date Comments Dizziness 09/15/2021 Encounter Details Date Type Department Care Team (Late st Contact Info) Description 09/15/2021 Nurse Triage [facility] [address] [facility] [address] [place] [address] Marcelo Garcia MD [address] [facility] [address] [place] [address] Social History Tobacco Use Types Packs/Day Years [...] on file Legal Sex Female 7:02 AM PLANT RELIABILITY ENGINEER Gender Identity Female 09/15/2021 9:12 AM PLANT RELIABILITY ENGINEER Sexual Orientation Straight 09/15/2021 9: 12 AM PLANT RELIABILITY ENGINEER documented as of this encounter Miscellaneous Notes * Telephone Encounter - Ruthann Shine RN - 09/15/2021 8:13 AM PLANT RELIABILITY ENGINEER Chief Complaint Patient presents with ??? Dizziness Drea Caal calls reporting she woke with dizziness today that she describes as feeling off balance . Pt reports a spinning/tilting to room and states worse when she moves. Pt denies weakness, vision issues, numbness or other stroke symptoms. Pt states she did apply Lidex cream to head last night for treatment of rash. No appts available in office today, pt instructed on Virtual visit via my chart. Pt provided with care instructions. Pt agreeable to plan of care. Pt instructed to call back if symptoms worsen, questions and or concerns arise. Verbal understanding returned from pt. Reason for Disposition ??? Spinning or tilting sensation (vertigo) present now Protocols used: [id number] T RELIABILITY ENGINEER * Telephone Encounter - Ruthann Shine RN - 09/15/2021 8:06 AM PLANT RELIABILITY ENGINEER Regarding: Dizziness, off balance ----- Message from Madison Gan sent at 09/15/2021 7:53 AM PLANT RELIABILITY ENGINEER ----- Symptom Based Call Chief Complaint: Dizziness, off balance Did you review 911/Red Flag List?Yes Duration: 1 day Why was appointment not scheduled? Red Flags Caller's Callback #: [phone] Additional Comments: NA Does message need to be routed? Yes-Action Needed Symptoms:No (08/19/2021 2:47 PM)Exposure: No (08/19/2021 2:47 PM)Positive COVID-19 test within the last 14 days:No (08/19/2021 2:47 PM) T RELIABILITY ENGINEER documented in this encounter Plan of Treatment Not on file documented as of this encounter Visit Diagnoses Not on filedocumented in this encounter Care Teams Water Manager Relationship Specialty Start Date End Date Marcelo Garcia MD [address] [facility] [address] [place] [address] PCP - General 09/13/12 documented as of this encounter
--- OUTSIDE RECORDS SUMMARY | 2024-09-25 04:57 | XMS_ITS | Encounter Summary ---
Author Organization [facility] Address [address] [place] [address] Care Team Providers Care Director Of Nursing Name Role Phone Marcelo Garcia MD Primary Care Provider [phone] Reason for Visit * Reason Onset Date Comments Follow-up 08/15/2017 Encounter Details Date Type Department Care Team (Late st Contact Info) Description 08/15/2017 Telephone [facility] [address] [address] Camryn Silva Follow-up Social History [...] on filedocumented in this encounter Care Teams Director Of Nursing Relationship Specialty Start Date End Date Marcelo Garcia MD [address] [address] PCP - General Internal Medicine 08/13/17 documented as of this encounter
--- OUTSIDE RECORDS SUMMARY | 2024-09-25 04:57 | XMS_ITS | Encounter Summary ---
Author Organization [facility] Address [address] [place] [address] Care Team Providers Care Box Estimator Name Role Phone Marcelo Garcia MD Primary Care Provider [phone] Reason for Referral * Diagnostic Imaging (Routine) - Closed Specialty Diagnoses / Procedures Referred By Contac t Referred To Contact Diagnoses Screening mammogram, encounter for Procedures Screening Mammogram Bilateral W Dedrick Screening Mammogram, Self [facility] Referral ID Status Reason Start Date Expiration Date Visits Re quested Visits Authorized [id number] Closed 11/10/2022 12/10/2023 1 1 * Diagnostic Imaging (Routine) - Closed Specialty Diagnoses / Procedures Referred By Contac t Referred To Contact Diagnoses Screening mammogram, encounter for Procedures Screening Mammogram Bilateral W Dedrick Screening Mammogram, Self [facility] Referral ID Status Reason Start Date Expiration Date Visits Re quested Visits Authorized [id number] Closed 11/10/2022 12/10/2023 1 1 CTOR OF MARKET ANALYSIS Reason for Visit * Diagnostic Imaging (Routine) - Closed Specialty Diagnoses / Procedures Referred By Contac t Referred To Contact Diagnoses Screening mammogram, encounter for Procedures Screening Mammogram Bilateral W Dedrick Screening Mammogram, Self [facility] Referral ID Status Reason Start Date Expiration Date Visits Re quested Visits Authorized [id number] Closed 11/10/2022 12/10/2023 1 1 Encounter Details Date Type Department Care Team (Latest Contact Info) Description 01/04/2023 6:50 AM CDT - 01/04/2023 11:59 PM CDT Hospital Encounter [facility] Breast [facility] ([facility]) [address] [place] [id number] Screening mammogram, encounter for Discharge Disposition: Discharge to home or self care Social History Tobacco Use Types Packs/Day Years Used Date Smoking Tobacco: Former Smokeless Tobacco: Never Alcohol Use Standard Drinks/Week Comments Yes 0 (1 standard drink = 0.6 oz pur e alcohol) socially PHQ-2 Answer Date Recorded PHQ-2 Total Score (If total score is 3 or more points, staff should administer the PHQ-9) 0 11/08/2022 Comments No Sex and Gender Information Value Date Recorded Sex Assigned at Not on file Legal Sex Female 7:02 AM DIRECTOR OF MARKET ANALYSIS Gender Identity Female 09/15/2021 9:12 AM DIRECTOR OF MARKET ANALYSIS Sexual Orientation Straight 09/15/2021 9: 12 AM DIRECTOR OF MARKET ANALYSIS documented as of this encounter Medications at Time of Discharge ALPRAZolam (XANAX) 0.25 mg tablet Take 1 tablet (0.25 mg total) by mouth daily as needed for anxiety 30 tablet 5 11/08/2022 4 fluocinonide (LIDEX) 0.05 % external solution Apply topically 2 (two) times a day as needed for irritation or rash 180 mL 11 11/08/2022 4 documented as of this encounter Discharge Disposition Disposition Code Departure Means Destination Discharge to home or self care documented in this encounter Plan of Treatment Not on file documented as of this encounter Procedures Procedure Name Priority Date/Time Associated Diagnosis Comments SCREENING MAMMOGRAM BILATERAL W DEDRICK Schedule Routine, Read Routine (OP Routine) 01/04/2023 7:14 AM CDT Screening mammogram, encounter for documented in this encounter Results * Screening Mammogram Bilateral W Dedrick (01/04/2023 7:14 AM CDT) Anatomical Region Laterality Modality Breast Bilateral Mammography Narrative 01/05/2023 2:22 PM CDT Mammogram Technique: Bilateral Digital Breast Tomosynthesis, Bilateral C-view 2D Screening mammogram. ??Views obtained: ??bilateral craniocaudal and bilateral mediolateral oblique. ??Computer Aided Detection was performed. Mammogram Findings: The present examination has been compared to prior imaging studies performed on 06/29/2018, and at [facility] on 09/20/2018 and 11/01/2021. The breasts are heterogeneously dense, which may obscure small masses. Finding 1: ??There is an oval mass measuring 10 millimeters with obscured margins in the anterior upper outer quadrant of the left breast. Finding 2: There are calcifications in the middle upper slightly outer quadrant of the right breast. Finding 3: ??There is asymmetry in the middle inner breast on the craniocaudal view of the right breast. Impression: Finding 1: ??Mass in the left breast requires additional evaluation. Diagnostic mammogram and possible ultrasound of the left breast are recommended at this time. Finding 2: ??Calcifications in the right breast require additional evaluation. A diagnostic mammogram of the right breast is recommended at this time. Finding 3: ??Asymmetry in the right breast requires additional evaluation. Diagnostic mammogram and possible ultrasound of the right breast are recommended at this time. OVERALL FINAL ASSESSMENT: BI-RADS CATEGORY 0: ??Incomplete: ??Need additional imaging evaluation. Procedure Note Sally Oliver MD - 01/05/2023 Mammogram Technique: Bilateral Digital Breast Tomosynthesis, Bilateral C-view 2D Screening mammogram. Views obtained: bilateral craniocaudal and bilateral mediolateral oblique. Computer Aided Detection was performed. Mammogram Findings: The present examination has been compared to prior imaging studies performed on 06/29/2018, and at [facility] on 09/20/2018 and 11/01/2021. The breasts are heterogeneously dense, which may obscure small masses. Finding 1: There is an oval mass measuring 10 millimeters with obscured margins in the anterior upper outer quadrant of the left breast. Finding 2: There are calcifications in the middle upper slightly outer quadrant ofthe right breast. Finding 3: There is asymmetry in the middle inner breast on the craniocaudal view of the right breast. Impression: Finding 1: Mass in the left breast requires additional evaluation. Diagnostic mammogram and possible ultrasound of the left breast are recommended at this time. Finding 2: Calcifications in the right breast require additional evaluation. A diagnostic mammogram of the right breast is recommended at this time. Finding 3: Asymmetry in the right breast requires additionalevaluation. Diagnostic mammogram and possible ultrasound of the right breast are recommended at this time. OVERALL FINAL ASSESSMENT: BI-RADS CATEGORY 0: Incomplete: Need additional imaging evaluation. us Self Screening Mammogram IMG MAMMO PROCEDURES Fi nal Result documented in this encounter Visit Diagnoses Diagnosis Screening mammogram, encounter for documented in this encounter Care Teams Box Estimator Relationship Specialty Start Date End Date Marcelo Garcia MD [address] [address] PCP - General 09/13/12 documented as of this encounter
--- OUTSIDE RECORDS SUMMARY | 2024-09-25 04:57 | XMS_ITS | Encounter Summary ---
Author Organization [facility] Address [address] [place] [address] Care Team Providers Care Drum Operator Name Role Phone Marcelo Garcia MD Primary Care Provider [phone] Encounter Details Date Type Department Care Team (Late st Contact Info) Description 09/29/2023 Telephone [facility] [address] [facility] [address] [place] [address] Marcelo Garcia MD [address] [facility] [address] [place], [place] [id number] Social History Tobacco Use Types Packs/Day Years [...] on file Legal Sex Female 7:02 AM LARRY OPERATOR Gender Identity Female 09/15/2021 9:12 AM LARRY OPERATOR Sexual Orientation Straight 09/15/2021 9: 12 AM LARRY OPERATOR documented as of this encounter Miscellaneous Notes * Telephone Encounter - Inder Mercado - 09/29/2023 9:21 AM CST Provider will not be in office. Please reschedule appointment on 11/09/[address] Garcia Y OPERATOR documented in this encounter Plan of Treatment Not on file documented as of this encounter Visit Diagnoses Not on filedocumented in this encounter Care Teams Drum Operator Relationship Specialty Start Date End Date Marcelo Garcia MD [address] [facility] [address] [place] [address] PCP - General 09/13/12 documented as of this encounter
--- OUTSIDE RECORDS SUMMARY | 2024-09-25 04:57 | XMS_ITS | Encounter Summary ---
Author Organization [facility] Address [address] [place] [address] Phone Care Team Providers Care Dinkey Engine Operator Name Role Phone Marcelo Garcia MD Primary Care Provider [phone] Reason for Visit * Reason Comments Skin Exam Left thigh concern * Consultation (Routine) - Authorized Specialty Diagnoses / Procedures Referred By Zulma crowell Referred To Contact Dermatology Diagnoses Skin lesion of lower extremity Marcelo Garcia MD [facility] [address] [place] [address] Phone: tel: fax: [facility] [address] [place] [address] [place] [phone] Phone: tel: fax: Referral ID Status Reason Start Date Expiration Date Visits Requested Visits Authorized [id number] Authorized Specialty Services Required 02/26/2024 03/27/2025 6 6 Encounter Details Date Type Department Care Team (Late st Contact Info) Description 03/14/2024 1:00 PM CDT Office Visit [facility] [address] [place] [address] Outpatient Health [address] [place] [phone] [facility] [address] [place], [place] [id number] Neoplasm of unspecified behavior of bone, soft tissue, and skin (Primary Dx); Seborrheic keratosis; Multiple benign melanocytic nevi; Lentigines; Skin lesion of lower extremity Social History Tobacco Use Types Packs/Day Years [...] on file Legal Sex Female 7:02 AM ATG ARCHITECT Gender Identity Female 09/15/2021 9:12 AM ATG ARCHITECT Sexual Orientation Straight 09/15/2021 9: 12 AM ATG ARCHITECT documented as of this encounter Progress Notes * Gaby Ghosh MD - 03/14/2024 1:00 PM CDT Dermatology Clinic Note CC: spot check HPI: Drea Caal is a 44 y.o. female with no hx of skin cancer who presents for evaluation/management of new spot on the right thigh . Today she reports the following: - new darker mole on the left medial thigh , asx -. Otherwise, patient has not noticed any non-healing sores, new/changing moles, or rashes. Other History: Medications and allergies reviewed in chart Past medical, family, and social history reviewed and noncontributory unless noted in HPI. ROS: Constitutional: Negative for fever/chills and malaise/fatigue. Skin: Negative for pruritus, rash, non-healing sores, and new/changing moles. Other ROS per HPI. PHYSICAL EXAM: GENERAL: Well-developed and well-nourished. No acute distress. NEURO: Alert and oriented x3. PSYCH: Appropriate affect. SKIN: - left medial thigh with <1 mm dark brown macule - Scattered arriaza waxy [id number] papules on trunk and extremities - Scattered chance-red dome-shaped papules on trunk and extremities - Scattered homogenous arriaza/brown macules on trunk and extremities Otherwise: FACE: No abnormalities noted. EARS: No abnormalities noted. SCALP/HAIR: No abnormalities noted. EYES/EYELIDS: No scleral icterus. No abnormalities noted of conjunctiva or eyelids. LIPS: No abnormalities noted. NECK: No abnormalities noted. CHEST: No abnormalities noted. BACK: No abnormalities noted. ABDOMEN: No abnormalities noted. BUTTOCKS: No abnormalities noted. EXTREMITIES (RUE): No abnormalities noted. EXTREMITIES (LUE): No abnormalities noted. EXTREMITIES (RLE): No abnormalities noted. EXTREMITIES (LLE): No abnormalities noted. DIGITS/NAILS: No cyanosis, clubbing, or nail abnormality. ASSESSMENT AND PLAN: Neoplasm, left medial thigh Ddx: intradermal melanocytic hemorrhage vs melanocytic nevus - Benign, pt reassured Seborrheic keratoses - Benign reassurance provided - No treatment indicated Chance angiomas - Benign reassurance provided - No treatment indicated Multiple melanocytic nevi & lentigines - Benign reassurance provided - Reviewed sun protection strategies and skin cancer warning signs, recommend SPF 30+ q2hrs daily RTC in PRN Gaby Ghosh MD PGY-3, Dermatology March 14, 2024 Cosigned by Tonio Bender MD at 03/19/2024 5:52 PM CDT Associated attestation - Tonio Bender MD - 03/19/2024 5:52 PM CDT ATTESTATION: I have seen and examined the patient. I agree with the findings and plan of care as documented in the resident's note. Tonio Bender MD documented in this encounter Plan of Treatment Not on file documented as of this encounter Visit Diagnoses Diagnosis Neoplasm of unspecified behavior of bone, soft tissue, and skin- Primary Seborrheic keratosis Multiple benign melanocytic nevi Lentigines Skin lesion of lower extremity documented in this encounter Orders Outpatient Referral Count Last Ordered Date Fir st Ordered Date AMB REFERRAL TO DERMATOLOGY 05/24/2024 documented in this encounter Care Teams Dinkey Engine Operator Relationship Specialty Start Date End Date Marcelo Garcia MD [address] [address] PCP - General 09/13/12 documented as of this encounter
--- OUTSIDE RECORDS SUMMARY | 2024-09-25 04:57 | XMS_ITS | Patient Health Summary ---
Author Organization [facility] [employer] Address [address] [place] [address] Care Team Providers Care Operational Assistant Name Role Phone Marcelo Garcia MD Primary Care Provider Note from [facility],non-owned Affiliates and Associated Physician Practices is amultiple site organization consisting of ambulatory clinics and hospital sitesin [place], [place], [place] and [place]. This disclosure is being madepursuant to the Care Everywhere program and may not contain all information available regarding this patient. Last updated 18.[facility] [employer] Allergies No known active allergies Medications Be [...] Comments Blood Pressure 108/58 08/13/2017 10:05 AM HEATING ELEMENT WINDER Pulse 81 08/13/2017 10:05 AM HEATING ELEMENT WINDER Temperature 36.8 ??C (98.2 ??F) 08/13/2017 10:[address] Respiratory Rate 18 08/15/2016 9:13 AM HEATING ELEMENT WINDER Oxygen Saturation 99% 08/13/2017 10:05 AM HEATING ELEMENT WINDER Inhaled Oxygen Concentration - - Weight 65.8 kg (145 lb) 08/13/2017 10:05 AM HEATING ELEMENT WINDER Height 165.1 cm (5' 5 ) 08/13/2017 10:05 AM HEATING ELEMENT WINDER Body Mass Index 24.13 08/13/2017 10:05 AM HEATING ELEMENT WINDER Procedures * STREP A SCREEN - POINT OF CARE (AMB) STL(Performed 08/15/2016) Performed for Strep throat Results * (ABNORMAL) STREP A SCREEN (08/15/2016 9:22 AM HEATING ELEMENT WINDER) Strep A Rapid POCT Positive(A) Negative Strep A Internal Control Present Lot # [id number] Expiration Date [id number] Throat ENTIRE THROAT (SURFACE REGION OF NECK) / Unknown 08/15/2016 9:22 AM HEATING ELEMENT WINDER Melia Lozano [employer] [facility] - POINT O F CARE ORDERABLES Care Teams Operational Assistant Relationship Specialty Start Date End Date Marcelo Garcia MD [address] [address] PCP - General Internal Medicine 08/13/17
--- OUTSIDE RECORDS SUMMARY | 2024-09-25 04:57 | XMS_ITS | Encounter Summary ---
Author Organization [facility] Healthcare Address [address] [place] [address] Care Team Providers Care Steerer Name Role Phone Marcelo Garcia MD Primary Care Provider [phone] Reason for Referral * Consultation (Routine) - Authorized Specialty Diagnoses / Procedures Referred By Contac t Referred To Contact Dermatology Diagnoses Skin lesion of lower extremity Marcelo Garcia MD [address] [facility] [address], [place] [address] Phone: tel: fax: [facility] [address] [facility] [address] [place] [address] Phone: tel: fax: Referral ID Status Reason Start Date Expiration Date Visits Requested Visits Authorized [id number] Authorized Specialty Services Required 02/26/2024 03/27/2025 6 6 Question Answer Please select the performing region: [facility] (All Locations) [[id number]] Please select the performing department: 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 Sexual Orientation Straight 09/15/2021 9: 12 AM MASTER SONAR TECHNICIAN documented as of this encounter Last Filed Vital Signs Vital Sign Reading Time Taken Comments Blood Pressure 118/72 02/26/2024 8:37 AM CDT Pulse 85 02/26/2024 8:37 AM CDT Temperature 37 ??C (98.6 ??F) 02/26/2024 8:37 AM CDT Respiratory Rate 18 02/26/2024 8:37 AM CDT Oxygen Saturation 98% 02/26/2024 8:37 AM CDT Inhaled Oxygen Concentration - - Weight 64 kg (141 lb) 02/26/2024 8:37 AM CDT Height 162.6 cm (5' 4 ) 02/26/2024 8:37 AM CDT Body Mass Index 24.2 02/26/2024 8:37 AM CDT documented in this encounter Ordered Prescriptions Prescription Sig Dispense Quantity Refills Last Filled Start Date End Date ALPRAZolam (XANAX) 0.25 mg tablet Take 1 tablet (0.25 mg total) by mouth daily as needed for anxiety 30 tablet 5 02/26/2024 5 documented in this encounter Progress Notes * Marcelo Garcia MD - 02/26/2024 9:00 AM CDT Subjective/Objective Patient ID: Drea Caal is a 44 y.o. female. Chief Complaint Physical Exam HPI P.E. She is here for her annual exam. She is current on mammogram. Her last LDL was improved to 97 from a peak of 145. She walks for exercise. Anxiety responds to alprazolam as needed.Her sleep is improved. Last year she complained of right elbow pain. Her pain has resolved. She notes a skin lesionon her left thigh that is dark,new and irregular. Review of Systems Constitutional: Negative for fatigue. HENT: Negative for sore throat. Respiratory: Negative for shortness of breath. Cardiovascular: Negative for chest pain. Gastrointestinal: Negative for abdominal pain. Musculoskeletal: Negative for back pain. Skin: Negative for rash. Neurological: Negative for dizziness. Psychiatric/Behavioral: The patient is nervous/anxious. BP 118/72 (BP Location: Right arm, Patient Position: Sitting) Pulse 85 Temp 37 ??C (98.6 ??F) (Temporal) Resp 18 Ht 162.6 cm (5' 4 ) Wt 64 kg (141 lb) SpO2 98% BMI 24.20 kg/m?? Physical Exam Constitutional: Appearance: She is well-developed. HENT: Head: Normocephalic. Eyes: Pupils: Pupils are equal, round, and reactive to light. Cardiovascular: Rate and Rhythm: Normal rate and regular rhythm. Heart sounds: Normal heart sounds. Pulmonary: Effort: Pulmonary effort is normal. Breath sounds: Normal breath sounds. Abdominal: General: Bowel sounds are normal. Palpations: Abdomen is soft. Musculoskeletal: Cervical back: Neck supple. Skin: Comments: 1/2 cm in diameter black lesion with irregular border and color variation left medial thigh. Neurological: Mental Status: She is alert. Assessment/Plan Diagnoses and all orders for this visit: Physical exam (Z00.00) (Primary) Assessment & Plan: Reviewed diet and exercise goals. Await Annual labs. Reviewed immunization and screening status. Advised annual mammogram. Reviewed dietary modification for hyperlipidemia. Refer to Dermatology for skin lesion. Orders: - Comprehensive metabolic panel; Future - CBC with auto differential; Future - Lipid panel; Future Skin lesion of lower extremity (L98.9) - Ambulatory referral to Dermatology; Future Other orders - ALPRAZolam (XANAX) 0.25 mg tablet; Take 1 tablet (0.25 mg total) by mouth daily as needed for anxiety documented in this encounter Miscellaneous Notes * Assessment & Plan Note - Marcelo Garcia MD - 02/26/2024 9:04 AM CDT Associated Problem(s): Physical exam Reviewed diet and exercise goals. Await Annual labs. Reviewed immunization and screening status. Advised annual mammogram. Reviewed dietary modification for hyperlipidemia. Refer to Dermatology for skin lesion. * Assessment & Plan Note - Marcelo Garcia MD - 02/25/2024 8:21 AM CDT Associated Problem(s): Annual physical exam Reviewed diet and exercise goals. Await Annual labs. Reviewed immunization and screening status. Advised annual mammogram. Reviewed dietary modification for hyperlipidemia. documented in this encounter Plan of Treatment Scheduled Referrals Name Type Priority Associated Diagnoses Order Schedule Ambulatory referral to Dermatology Outpatient Referral Routine Skin lesion of lower extremity Expected: 03/11/2024 (Approximate), Expires: 02/25/2025 documented as of this encounter Procedures Procedure Name Priority Date/Time Associated Diagnosis Comments EGFR Routine 02/26/2024 9:23 AM CDT Physical exam DIFFERENTIAL AUTO Routine 02/26/2024 9:2 3 AM CDT Physical exam CBC WITH AUTO DIFFERENTIAL Routine 02/26/2024 9:23 AM CDT Physical exam LIPID PANEL Routine 02/26/2024 9:23 AM CDT Physical exam COMPREHENSIVE METABOLIC PANEL Routine 02/26/2024 9:23 AM CDT Physical exam documented in this encounter Results * eGFR (02/26/2024 9:23 AM CDT) [facility] eGFR >90 >=60 mL/min/1. 73 m2 Comment: Interpretive Data Reference Interval Normal ?>/= 90 mL/min/1.73m2 Mildly decreased* ? 60 - 89 mL/min/1.73m2 Mildly to moderately decreased ?45 - 59 mL/min/1.73m2 Moderately to severely decreased ??30 - 44 mL/min/1.73m2 Severely decreased ?15 - 29 mL/min/1.73m2 Kidney Failure ?< 15 ??mL/min/1.73m2 *Relative to young adult level Estimated glomerular filtration rate is determined by the 2020 CKD-EPI equation recommended by the National Kidney Foundation (A Unifying Approach to GFR Estimation: Recommendations of the NKF-ASK Task Force on Reassessing the Inclusion of Race in Diagnosing Kidney Disease, JASN 2020). The CKD-EPI equation should not be used for patients with unstable renal function and has not been validated in children and those over 70. Current interpretive data was last reviewed 2021. Blood 02/26/2024 9:23 AM CDT 02/26/2024 11:58 AM CDT us Marcelo Garcia MD LAB BLOOD ORDERABLES Final Re sult [facility] Department [place] [address] * Differential, auto (02/26/2024 9:23 AM CDT) Pathologist [facility] Neutrophil abs 2.6 1.5 - 6.5 K/cumm Imm gran abs 0.0 0.0 - 0.1 K/cumm [facility] Lymphocyte abs 1.1 0.8 - 3.3 K/cumm [facility] Monocyte abs 0.4 0.2 - 0.8 K/cumm [facility] Eosinophil abs 0.0 0.0 - 0.5 K/cumm [facility] Basophil abs 0.0 0.0 - 0.1 K/cumm [facility] Neutrophil pct 61.5 % [facility] Comment: Interpretive Data Percent cell count reference ranges are not reported, since discordance with absolute values may lead to misinterpretation of CBC data. Current Interpretive Data was last revised on 2017. Imm gran pct 0.2 % [facility] Comment: Interpretive Data Percent cell count reference ranges are not reported, since discordance with absolute values may lead to misinterpretation of CBC data. Current Interpretive Data was last revised on 2017. Lymphocyte pct 27.3 % [facility] Comment: Interpretive Data Percent cell count reference ranges are not reported, since discordance with absolute values may lead to misinterpretation of CBC data. Current Interpretive Data was last revised on 2017. Monocyte pct 9.3 % [facility] Comment: Interpretive Data Percent cell count reference ranges are not reported, since discordance with absolute values may lead to misinterpretation of CBC data. Current Interpretive Data was last revised on 2017. Eosinophil pct 0.7 % [facility] Comment: Interpretive Data Percent cell count reference ranges are not reported, since discordance with absolute values may lead to misinterpretation of CBC data. Current Interpretive Data was last revised on 2017. Basophil pct 1.0 % [facility] Comment: Interpretive Data Percent cell count reference ranges are not reported, since discordance with absolute values may lead to misinterpretation of CBC data. Current Interpretive Data was last revised on 2017. Blood 02/26/2024 9:23 AM CDT 02/26/2024 11:52 AM CDT us Marcelo Garcia MD LAB BLOOD ORDERABLES Final Re sult [facility] Department [place] [address] * (ABNORMAL) Lipid panel (02/26/2024 9:23 AM CDT) Cholesterol 221(H) 30 - 199 mg/dL Comment: Interpretive Data Ages < or = 19 years ??Acceptable: ? <170 mg/dL ??Borderline high: ??170-199 mg/dL ??High: ? >or= 200 mg/dL Ages > or = 20 years ??Desirable: ?<200 mg/dL ??Borderline high: ??200-239 mg/dL ??High: ? >or= 240 mg/dL Literature References: 1. Expert Panel on Integrated Guidelines for Cardiovascular Health and Risk Reduction in Children and Adolescents. Pediatrics 2011;128:S213 2. NCEP Expert Panel. Circulation 2004;110:227 Current Interpretive Data was last revised on 2018. Triglycerides 64 <=149 mg/dL [facility] Comment: Interpretive Data Ages < or = 9 years ??Acceptable: ? <75 mg/dL ??Borderline high: ??75-99 mg/dL ??High: ? >or= 100 mg/dL Ages 10 to 20 years ??Acceptable: ? <90 mg/dL ??Borderline high: ??90-129 mg/dL ??High: ? >or= 130 mg/dL Ages > or = 20 years ??Desirable: ?<150 mg/dL ??Borderline high: ??150-199 mg/dL ??High: ? 200-499 mg/dL ?Very high: ?? >or= 499 mg/dL Literature References: 1. Expert Panel on Integrated Guidelines for Cardiovascular Health and Risk Reduction in Children and Adolescents. Pediatrics 2011;128:S213 2. NCEP Expert Panel. Circulation 2004;110:227 Current Interpretive Data was last revised on 2018. HDL 86 >=40 mg/dL [facility] Comment: Interpretive Data Ages < or = 19 years ??Acceptable: ? >45 mg/dL ??Borderline low: ?? 40-45 mg/dL ??Low: ? <40 mg/dL Ages > or = 20 years ??Desirable: ?>or= 60 mg/dL ??Low: ? <40 mg/dL Literature References: 1. Expert Panel on Integrated Guidelines for Cardiovascular Health and Risk Reduction in Children and Adolescents. Pediatrics 2011;128:S213 2. NCEP Expert Panel. Circulation 2004;110:227 Current Interpretive Data was last revised on 2018. LDL, calculated 122 <=129 mg/dL [facility] Comment: Interpretive Data Ages < or = 19 years ??Acceptable: ? <110 mg/dL ??Borderline high: ??110-129 mg/dL ??High: ?>or= 130 mg/dL Ages > or = 20 years ??Optimal: ? <100 mg/dL ??Near optimal: ?100-129 mg/dL ??Borderline high: ?? 130-159 mg/dL ??High: ?>160 mg/dL Literature References: 1. Expert Panel on Integrated Guidelines for Cardiovascular Health and Risk Reduction in Children and Adolescents. Pediatrics 2011;128:S213 2. NCEP Expert Panel. Circulation 2004;110:227 Current Interpretive Data was last revised on 2018. Non-HDL Cholesterol 135 mg/dL [facility] Comment: Interpretive Data Ages < or = 19 years ??Acceptable: ?<120 mg/dL ??Borderline high: ??120-144 mg/dL ??High: ?>145 mg/dL Ages > or = 20 years ??When triglycerides are >200 mg/dL, Non-HDL cholesterol is a secondary target of ? therapy with treatment goals that are 30 mg/dL greater than the LDL cholesterol target. ? Literature References: 1. Expert Panel on Integrated Guidelines for Cardiovascular Health and Risk Reduction in Children and Adolescents. Pediatrics 2011;128:S213 2. NCEP Expert Panel. Circulation 2004;110:227 Current Interpretive Data was last revised on 2018. Chol/HDL ratio 3 [facility] Blood 02/26/2024 9:23 AM CDT 02/26/2024 11:52 AM CDT us Marcelo Garcia MD LAB BLOOD ORDERABLES Final Re sult Performing Organization Address [facility] Co de Phone Number [facility] Department [place] [address] * CBC with auto differential (02/26/2024 9:23 AM CDT) [facility] WBC 4.2 3.8 - 9.9 K/cumm Hgb 12.7 11.9 - 15.5 g/dL [facility] Hct 38.2 35.6 - 45.5 % [facility] Plt 252 150 - 400 K/cumm [facility] MPV 10.1 9.1 - 12.3 fL [facility] RBC 4.38 3.90 - 5.20 M/cumm [facility] MCV 87.2 81.3 - 96.4 fL [facility] MCH 29.0 27.1 - 33.3 pg [facility] MCHC 33.2 32.3 - 35.7 g/dL [facility] RDW CV 11.9 11.1 - 14.9 % [facility] RDW SD 38.5 35.7 - 48.1 fL [facility] NRBC abs 0.00 0.00 - 0.01 K/cumm [facility] Blood 02/26/2024 9:23 AM CDT 02/26/2024 11:52 AM CDT Marcelo Garcia MD LAB BLOOD ORDERABLES Final Re sult Performing Organization Address City/[facility] Co de Phone Number [facility] Department [place] [address] * Comprehensive metabolic panel (02/26/2024 9:23 AM CDT) [facility] Sodium 141 135 - 145 mmol/L Potassium, pl 4.2 3.3 - 4.9 mmol/L [facility] Chloride 105 97 - 110 mmol/L [facility] CO2 28 22 - 32 mmol/L [facility] Anion gap 8 2 - 15 mmol/L [facility] BUN 12 6 - 25 mg/dL [facility] Creatinine 0.77 0.60 - 1.10 mg/dL [facility] Glucose 86 70 - 199 mg/dL [facility] Comment: Interpretive Data Fasting glucose >/= 126 mg/dl is diagnostic for diabetes. ?? Fasting is defined as no caloric intake for at least 8 hours. Fasting glucose between 100 mg/dl to 125 mg/dl is diagnostic of prediabetes. In a patient with classic symptoms of hyperglycemia or hyperglycemic crisis, a random glucose >/= 200 mg/dl is diagnostic for diabetes. In the absence of unequivocal hyperglycemia, results should be confirmed by repeat testing. The classification and Diagnosis of Diabetes Diabetes Care 202; 46: S19-S40. Current interpretive data was last revised 2022. Calcium 9.5 8.5 - 10.3 mg/dL [facility] Bilirubin, total 0.3 0.1 - 1.2 mg/dL [facility] Protein, pl 7.6 6.5 - 8.5 g/dL [facility] Albumin 4.8 3.5 - 5.0 g/dL [facility] Alk phos 62 40 - 130 Units/L [facility] ALT 21 7 - 45 Units/L [facility] AST 20 10 - 45 Units/L [facility] Blood 02/26/2024 9:23 AM CDT 02/26/2024 11:52 AM CDT Marcelo Garcia MD LAB BLOOD ORDERABLES Final Re sult [facility] [place] [address] documented in this encounter Visit Diagnoses Diagnosis Physical exam- Primary Unspecified general medical examination Skin lesion of lower extremity documented in this encounter Discontinued Medications Medication Sig Discontinue Reason Start Date End Da te fluocinonide (LIDEX) 0.05 % external solution Apply topically 2 (two) times a day as needed for irritation or rash Therapy completed 11/08/2022 02/25/2024 ALPRAZolam (XANAX) 0.25 mg tablet Take 1 tablet (0.25 mg total) by mouth daily as needed for anxiety Reorder 11/08/2022 02/26/2024 documented as of this encounter Care Teams Steerer Relationship Specialty Start Date End Date Marcelo Garcia MD [address] [address] PCP - General 09/13/12 documented as of this encounter
--- OUTSIDE RECORDS SUMMARY | 2024-09-25 04:57 | XMS_ITS | Clinical Summary ---
Author Organization [facility] Address [address] [place] [address] Care Team Providers Care Cap Lining Machine Operator Name Role Phone Marcelo Garcia MD Primary Care Provider [phone] Allergies Active Allergy Reactions Criticality Noted Date Comments Penicillins Medications doxycycline (VIBRAMYCIN) 100 mg capsule Take 1 tablet/capsul e (100 mg total) by mouth 2 (two) times a day for 7 days 14 tablet/capsu le 5 09/27/19 25 Active predniSONE (DELTASONE) 20 mg tablet Take 1 tablet (20 mg) by mouth daily 5 tablet 5 Active albuterol HFA (ProAir HFA) 90 mcg/actuation inhaler Inhale 2 puffs every 4 (four) hours as needed for wheezing or shortness of breath 1 each 1 5 09/20/19 26 Active ALPRAZolam (XANAX) 0.25 mg tablet Take 1 tablet (0.25 mg total) by mouth daily as needed for anxiety 30 tablet 1 5 Active ALPRAZolam (XANAX) 0.25 mg tablet Take 1 tablet (0.25 mg total) by mouth daily as needed for anxiety 30 tablet 5 4 09/20/19 25 Discontinu ed(Reorder ) Active Problems Problem Noted Date Diagnosed Date Acute bronchitis 09/20/2024 Assessment & Plan (09/20/2024 9:56 AM AUTO HAULER): Reviewed negative flu/covid. Symptoms are not improving. Treat with doxycycline,prednisone and albuterol. Chest pain 09/20/2024 Assessment & Plan (09/20/2024 5:07 AM AUTO HAULER): Order chest XRAY. Physical exam 02/26/2024 Assessment & Plan (02/26/2024 9:09 AM CDT): Reviewed diet and exercise goals. Await Annual labs. Reviewed immunization and screening status. Advised annual mammogram. Reviewed dietary modification for hyperlipidemia. Refer to Dermatology for skin lesion. Skin lesion of lower extremity 02/26/2024 Anxiety 06/20/2019 Assessment & Plan (06/20/2019 12:55 PM CDT): Continue alprazolam as needed. Gastroesophageal reflux disease 06/20/2019 Chronic bilateral low back pain without sciatica 06/20/2019 Assessment & Plan (10/31/2019 7:41 AM AUTO HAULER): DDX; MSK, renal. Order UA and arrange renal US. Assessment & Plan (06/20/2019 1:12 PM CDT): Reviewed ergonomics. Reviewed XRAY. Annual physical exam 10/20/2017 Assessment & Plan (02/25/2024 8:21 AM CDT): Reviewed diet and exercise goals. Await Annual labs. Reviewed immunization and screening status. Advised annual mammogram. Reviewed dietary modification for hyperlipidemia. Assessment & Plan (11/08/2022 1:11 PM AUTO HAULER): Reviewed diet and exercise goals. Await Annual labs. Reviewed immunization and screening status. Advised annual mammogram. Reviewed dietary modification for hyperlipidemia. Reviewed tricep strengthening exercises for tendinitis. Assessment & Plan (10/26/2021 7:08 AM AUTO HAULER): Reviewed diet and exercise goals. Await Annual labs. Reviewed immunization and screening status. Advised a baseline mammogram. Reviewed dietary modification for hyperlipidemia. Assessment & Plan (10/26/2018 12:16 PM AUTO HAULER): Reviewed diet and exercise goals. Await Annual labs. Reviewed immunization and screening status. Continue alprazolam as needed for anxiety. Reviewed history of hiatus hernia. Reviewed GERD diet. Assessment & Plan (10/20/2017 1:08 PM AUTO HAULER): Reviewed diet and exercise goals. Await Annual labs. Reviewed immunization and screening status.Continue alprazolam as needed for anxiety. Arrange UGI for dysphagia. Multiple benign melanocytic nevi 11/30/2015 Rash 06/28/2012 Assessment & Plan (08/19/2021 3:16 PM AUTO HAULER): DDX; tinea capitis and secondary staph Vs psoriasis with secondary staph. Treat tinea. Treat secondary staph with doxycycline. Mass of skin 2012 Encounters Date Type Department Care Team Description 09/20/2024 10:19 AM AUTO HAULER - 09/20/2024 11:59 PM AUTO HAULER Hospital Encounter [facility] [address] [place] [id number] Marcelo Garcia MD Discharge Disposition: Discharge to home or self care 09/20/2024 10:00 AM AUTO HAULER Office Visit [address] [phone] Marcelo Garcia MD Acute bronchitis, unspecified organism (Primary Dx); Chest pain, unspecified type 09/20/[address] [phone] Marcelo Garcia MD 09/13/2024 10:00 AM AUTO HAULER Office Visit [facility] at [address] [address] Rosita Nuñez NP Upper respiratory infection, acute (Primary Dx); Chest pain, unspecified type from Last 3 Months Immunizations Name Administration Dates Next Due Influenza, Quadrivalent, Spl it, Preservative Free, Intradermal 08/02/2016 Influenza, Quadrivalent, Spl it, Preservative Free, Intramuscular 06/23/2015 Influenza, Trivalent, IM (MDV) 07/20/2013 Influenza, Trivalent, Preser vative Free, Intramuscular 06/16/2014 Influenza, Unspecified 11/08/2022(Deferred: Christina ent Refused) Surgical History Surgery Date Site/Laterality Comments WISDOM TOOTH EXTRACTION 09/18/1997 - 09/17/1998 TONSILLECTOMY 09/18/2000 - 09/17/2001 ORIF ELBOW FRACTURE 09/18/2006 - 09/17/2007 Left Medical History Medical History Date Comments Hx Other Medical elbow fracture Social History Tobacco Use Types Packs/Day Years Used Date Smoking Tobacco: Former Smokeless Tobacco: Never Alcohol Use Standard Drinks/Week Comments Yes 0 (1 standard drink = 0.6 oz pur e alcohol) socially PHQ-2 Answer Date Recorded PHQ-2 Total Score (If total score is 3 or more points, staff should administer the PHQ-9) 0 09/20/2024 Comments No Sex and Gender Information Value Date Recorded Sex Assigned at Not on file Legal Sex Female 7:02 AM AUTO HAULER Gender Identity Female 09/15/2021 9:12 AM AUTO HAULER Sexual Orientation Straight 09/15/2021 9: 12 AM AUTO HAULER Obstetrics History Last Filed Vital Signs Vital Sign Reading Time Taken Comments Blood Pressure 122/68 09/20/2024 9:46 AM AUTO HAULER Pulse 119 09/20/2024 9:46 AM AUTO HAULER Temperature 36.1 ??C (97 ??F) 09/20/2024 9:46 AM AUTO HAULER Respiratory Rate 18 09/20/2024 9:46 AM AUTO HAULER Oxygen Saturation 93% 09/20/2024 9:46 AM AUTO HAULER Inhaled Oxygen Concentration - - Weight 63.7 kg (140 lb 6.4 oz) 09/20/2024 9:46 A M AUTO HAULER Height 162.6 cm (5' 4 ) 09/20/2024 9:46 AM AUTO HAULER Body Mass Index 24.1 09/20/2024 9:46 AM AUTO HAULER Plan of Treatment Health Maintenance Due Date Last Done Comments Cervical Cancer Screening 1981 Hepatitis C Screening 1981 DTaP/Tdap/Td Vaccine (1 - Tdap) 02/15/1992 Varicella Vaccines (1 of 2 - 13+ 2-dose series) 1994 Hepatitis B Screening 1999 Breast Cancer Screening-Mammogram 03/03/2024 03/03/2023, 01/04/2023, 11/01/2021, Additional history exists Regular Well Visit/Exam 18-64 02/25/2025 02/26/2024, 11/08/2022, 10/26/2021, Additional history exists Influenza Vaccine (#1) 2025 6, 06/23/2015, 06/16/2014, Additional history exists Postponed from 05/19/2024 (Patient declined, but will receive in the future) Covid-19 Vaccine ( season) 2025 12/09/2020, 11/17/2020 Postponed from 05/19/2024 (Patient declined, but will receive in the future) Depression Screening 09/20/2025 09/20/2024, 02/26/2024, 11/08/2022, Additional history exists HPV Vaccines Aged Out No longer eligi ble based on patient's age to complete this topic Pneumococcal vaccine <65 Aged Out No longer eligible based on patient's age to complete this topic Procedures Procedure Name Priority Date/Time Associated Diagnosis Comments XR CHEST PA LATERAL 2 VIEWS Schedule Routine, Read Routine (OP Routine) 09/20/2024 10:32 AM AUTO HAULER Chest pain, unspecified type POC INFLUENZA A/B, COVID-19 ANTIGEN Routine 09/13/2024 10:31 AM AUTO HAULER Upper respiratory infection, acute DIAGNOSTIC MAMMOGRAM BILATERAL W DEDRICK Schedule Routine, Read Routine (OP Routine) 03/03/2023 7:40 AM CDT Abnormal mammogram from Last 3 Months or Most Recently Relevant to Health Maintenance Results * XR Chest Pa Lateral 2 Views (09/20/2024 10:32 AM AUTO HAULER) Anatomical Region Laterality Modality Body, Chest N/A Computed Radiogr aphy 09/20/2024 1:02 PM AUTO HAULER Impressions 09/20/2024 1:35 PM AUTO HAULER No comparison available: There is focal consolidation in the right lower lobe compatible with pneumonia. ??Cardiomediastinal silhouette is normal. There is no pneumothorax. ??There is probably a miniscule right effusion. ?? Recommend follow up of the Incidental right lower lobe consolidation Additional Imaging In 1 Month with chest x-ray. Dictated by: Fermin Ramos M.D. (Ramanan) The radiology attending physician has personally reviewed this study, and had reviewed and/or edited this written report and agrees with it. Electronically signed by: Sarah Maki M.D. Narrative 09/20/2024 1:35 PM AUTO HAULER EXAMINATION: 2 view chest radiograph Procedure Note Sarah Maki MD - 09/20/2024 EXAMINATION: 2 view chest radiograph IMPRESSION: No comparison available: There is focal consolidation in the right lower lobe compatible with pneumonia. Cardiomediastinal silhouette is normal. There is no pneumothorax. There is probably a miniscule right effusion. Recommend follow up of the Incidental right lower lobe consolidation Additional Imaging In 1 Month with chest x-ray. Dictated by: Fermin Ramos M.D. (Ramanan) The radiology attending physician has personally reviewed this study, and had reviewed and/or edited this written report and agrees with it. Electronically signed by: Sarah Maki M.D. Marcelo Garcia MD IMG XR PROCEDURES Final Resul t * POC Influenza A/B, COVID-19 antigen (09/13/2024 10:31 AM AUTO HAULER) Influenza A Ag, POC Negative Negative [facility] Influenza B Ag, POC Negative Negative [facility] COVID-19 Ag POC Presumptive Negative Presumptive Negative, Invalid [facility] Nasal 09/13/2024 10:3 1 AM AUTO HAULER Rosita Nuñez NP POINT OF CARE TEST ORDERABLES Final Result [facility] [address] [place] [address] * Diagnostic Mammogram Bilateral W Dedrick (03/03/2023 7:40 AM CDT) Anatomical Region Laterality Modality Breast Bilateral Mammography 03/03/2023 8:51 AM CDT Impressions 03/03/2023 8:53 AM CDT 1. ??Simple cyst in the upper outer subareolar LEFT breast. 2. ??Calcifications in the upper outer RIGHT breast appears stable over multiple prior examinations. 3. ??Asymmetry noted on screening mammogram in the middle inner RIGHT breast does not persist on spot compression views, likely representing overlying fibroglandular tissue. OVERALL FINAL ASSESSMENT: BI-RADS Category 2: Benign. RECOMMENDATION: Annual screening mammography is recommended. Dictated by: Robert Martin M.D. The radiology attending physician has personally reviewed this study, and had reviewed and/or edited this written report and agrees with it. Electronically signed by: Evette Johnson M.D. Narrative 03/03/2023 8:53 AM CDT EXAMINATION: BILATERAL DIGITAL DIAGNOSTIC MAMMOGRAM INCLUDING CAD AND BILATERAL DIGITAL BREAST TOMOSYNTHESIS; LEFT BREAST SONOGRAM HISTORY: 43-year-old woman recalled from screening for possible mass in the upper outer LEFT breast, calcifications in the middle upper outer RIGHT breast, and asymmetry in the middle inner RIGHT breast. COMPARISON: Screening mammograms, most recently 01/04/2023 TECHNIQUE: ?? Full field digital mammographic views of BOTH breasts were performed, including computer aided detection (CAD) and BILATERAL digital breast tomosynthesis (DBT). ??Directed ultrasound evaluation of the LEFT breast was performed. BREAST PARENCHYMAL COMPOSITION: The breasts are heterogenously dense, which may obscure small masses. MAMMOGRAM FINDINGS: The asymmetry in the middle inner RIGHT breast on the CC view does not persist on spot compression views. ??The calcifications in the middle upper outer RIGHT breast are slightly less conspicuous on today's examination but these appear stable over multiple prior examinations. ?? Oval mass measuring approximately 10 mm in the upper outer subareolar LEFT breast persists on today's examination including spot compression views. SONOGRAM FINDINGS: Targeted sonographic evaluation of the LEFT breast at the 1 o'clock position, 1 cm from the nipple demonstrates an anechoic, well-circumscribed cyst without associated vascularity and with posterior acoustic shadowing consistent with a simple cyst. ?? These findings were discussed with the patient by Dr. Johnson. Procedure Note Evette Johnson MD - 03/03/2023 EXAMINATION: BILATERAL DIGITAL DIAGNOSTIC MAMMOGRAM INCLUDING CAD AND BILATERAL DIGITAL BREAST TOMOSYNTHESIS; LEFT BREAST SONOGRAM HISTORY: 43-year-old woman recalled from screening for possible mass in the upper outer LEFT breast, calcifications in the middle upper outer RIGHT breast, and asymmetry in the middle inner RIGHT breast. COMPARISON: Screening mammograms, most recently 01/04/2023 TECHNIQUE: Full field digital mammographic views of BOTH breasts were performed, including computer aided detection (CAD) and BILATERAL digital breast tomosynthesis (DBT). Directed ultrasound evaluation of the LEFT breast was performed. BREAST PARENCHYMAL COMPOSITION: The breasts are heterogenously dense, which may obscure small masses. MAMMOGRAM FINDINGS: The asymmetry in the middle inner RIGHT breast on the CC view does not persist on spot compression views. The calcifications in the middle upper outer RIGHT breast are slightly less conspicuous on today's examination but these appear stable over multiple prior examinations. Oval mass measuring approximately 10 mm in the upper outer subareolar LEFT breast persists on today's examination including spot compression views. SONOGRAM FINDINGS: Targeted sonographic evaluation of the LEFT breast at the 1 o'clock position, 1 cm from the nipple demonstrates an anechoic, well-circumscribed cyst without associated vascularity and with posterior acoustic shadowing consistent with a simple cyst. These findings were discussed with the patient by Dr. Johnson. IMPRESSION: 1. Simple cyst in the upper outer subareolar LEFT breast. 2. Calcifications in the upper outer RIGHT breast appears stable over multiple prior examinations. 3. Asymmetry noted on screening mammogram in the middle inner RIGHT breast does not persist on spot compression views, likely representing overlying fibroglandular tissue. OVERALL FINAL ASSESSMENT: BI-RADS Category 2: Benign. RECOMMENDATION: Annual screening mammography is recommended. Dictated by: Robert Martin M.D. The radiology attending physician has personally reviewed this study, and had reviewed and/or edited this written report and agrees with it. Electronically signed by: Evette Johnson M.D. Marcelo Garcia MD IMG MAMMO PROCEDURES Final Re sult from Last 3 Months or Most Recently Relevant to Health Maintenance Insurance ANTHEM ACCESS CHOICE BLUE ACC CHOICE OOS BLUE ACC CHOICE OOS ANTH ACCESS CHOICE Care Teams Cap Lining Machine Operator Relationship Specialty Start Date End Date Marcelo Garcia MD [address] [facility] [address] [place] [address] PCP - General 09/13/12
--- OUTSIDE RECORDS SUMMARY | 2024-09-25 04:57 | XMS_ITS | Encounter Summary ---
Author Organization [facility] Address [address] [place] [address] Phone Care Team Providers Care Service Desk Manager Name Role Phone Marcelo Garcia MD Primary Care Provider [phone] Reason for Visit * Reason Comments Skin Exam Rash on scalp; dry p atch on arm Encounter Details Date Type Department Care Team (Late st Contact Info) Description 11/08/2021 3:00 PM REAL ESTATE MARKETING COORDINATOR Office Visit [facility] Dermatology [address] [facility] [address] [place] [address] Tonio Bender MD [address] [facility] [address] [place] [id number] Psoriasis (Primary Dx); Multiple benign melanocytic nevi of upper and lower extremities and trunk Social History Tobacco Use Types Packs/Day Years Used Date Smoking Tobacco: Former Smokeless Tobacco: Never Alcohol Use Standard Drinks/Week Comments Yes 0 (1 standard drink = 0.6 oz pur e alcohol) socially PHQ-2 Answer Date Recorded PHQ-2 Total Score (If total score is 3 or more points, staff should administer the PHQ-9) 0 10/26/2021 Comments No Sex and Gender Information Value Date Recorded Sex Assigned at Not on file Legal Sex Female 7:02 AM REAL ESTATE MARKETING COORDINATOR Gender Identity Female 09/15/2021 9:12 AM REAL ESTATE MARKETING COORDINATOR Sexual Orientation Straight 09/15/2021 9: 12 AM REAL ESTATE MARKETING COORDINATOR documented as of this encounter Progress Notes * Miquel Austin MD - 11/08/2021 3:00 PM CST CC: rash HPI: Drea Caal is a 41 y.o. female with no hx of skin cancer, presenting for the problems below: Concerns today: 1. Itchy rash on the occipital scalp since 06/2021. Treated with course of PO antibiotic with minimal improvement. Now treating with Lidex solution which works well. Clears up after several days of use; however, then recurs. More recently developed a new patch on the L forearm. No personal hx of psoriasis. No joint pain or nail dystrophy. Family hx of psoriasis in uncle. 2. Mole on the R frontal scalp since childhood. Intermittently tender when bumped. Otherwise, no new or changing moles or non-healing sores. MEDICATIONS/ALLEGIES/FAMILY HX/SOCIAL HX: Reviewed in chart ROS: No fevers, fatigue, weight loss No oral or genital lesions No other skin complaints, new/changing moles, or non-healing sores PHYSICAL EXAM: Gen: WD, WN, NAD; Neuro: A&O; Psyc: Normal mood and affect Skin exam: Inspected the Scalp/Hair, Head/Face, Conjunctivae/Lids, Oropharynx/Lips, Neck, R. Upper Extremity, L. Upper Extremity Examination normal with the following exceptions: -Erythematous well-demarcated scaly plaques on the occipital scalp and L forearm -Homogenous brown papule on the R frontal scalp ASSESSMENT AND PLAN: Psoriasis - BSA 1%, occipital scalp and L forearm - Counseled on diagnosis and treatment options - No joint pain or nail dystrophy - Continue Lidex solution daily prn, can also use on the L forearm lesion. Benign melanocytic nevus - R frontal scalp Patient reassured. ABCDE's and photoprotection were reviewed. RTC PRN Miquel Austin MD Dermatology Resident, PGY-4 Cosigned by Tonio Bender MD at 11/16/2021 8:31 AM REAL ESTATE MARKETING COORDINATOR ESTATE MARKETING COORDINATOR ESTATE MARKETING COORDINATOR Associated attestation - Tonio Bender MD - 11/16/2021 8:31 AM REAL ESTATE MARKETING COORDINATOR ATTESTATION: I have seen and examined the patient. I agree with the findings and plan of care as documented in the resident's note. Tonio Bender MD documented in this encounter Plan of Treatment Not on file documented as of this encounter Visit Diagnoses Diagnosis Psoriasis- Primary Other psoriasis Multiple benign melanocytic nevi of upper and lower extremities and trunk documented in this encounter Care Teams Service Desk Manager Relationship Specialty Start Date End Date Marcelo Garcia MD [address] [facility] [address] [place] [address] PCP - General 09/13/12 documented as of this encounter
--- OUTSIDE RECORDS SUMMARY | 2024-09-25 04:57 | XMS_ITS | Encounter Summary ---
Author Organization [facility] Address [address] [place] [address] Care Team Providers Care Medical Device Sales Consultant Name Role Phone Marcelo Garcia MD Primary Care Provider [phone] Reason for Visit * Diagnostic Imaging (Routine) - Closed Specialty Diagnoses / Procedures Referred By Contac t Referred To Contact Diagnoses Abnormal mammogram Procedures US Breast Left Limited [place] [address] [place] [phone] Phone: tel: fax: [facility] Referral ID Status Reason Start Date Expiration Date Visits Re quested Visits Authorized [id number] Closed 01/06/2023 02/05/2024 1 1 Encounter Details Date Type Department Care Team (Latest Contact Info) Description 03/03/2023 6:54 AM CDT - 03/03/2023 11:59 PM CDT Hospital Encounter [facility] [address] [place] [phone] Abnormal mammogram Discharge Disposition: Discharge to home or self [...] on file Legal Sex Female 7:02 AM COMPOUNDER FLAVORINGS Gender Identity Female 09/15/2021 9:12 AM COMPOUNDER FLAVORINGS Sexual Orientation Straight 09/15/2021 9: 12 AM COMPOUNDER FLAVORINGS documented as of this encounter Medications at [...] Procedure Name Priority Date/Time Associated Diagnosis Comments US BREAST LEFT LIMITED Schedule Routine, Read Routine (OP Routine) 03/03/2023 8:08 AM CDT Abnormal mammogram documented in this encounter Results * US Breast Left Limited (03/03/2023 8:08 AM CDT) Anatomical Region Laterality Modality Breast Left Ultrasound 03/03/2023 8:51 AM CDT Impressions 03/03/2023 8:53 [...] by: Evette Johnson M.D. Marcelo Garcia MD IM MAMMO PROCEDURES Final Re sult documented in this encounter Visit Diagnoses Diagnosis Abnormal mammogram Abnormal mammogram, unspecified documented in this encounter Care Teams Medical Device Sales Consultant Relationship Specialty Start Date End Date Marcelo Garcia MD [address] [address] PCP - General 09/13/12 documented as of this encounter
--- OUTSIDE RECORDS SUMMARY | 2024-09-25 04:57 | XMS_ITS | Encounter Summary ---
Author Organization [facility] Address [facility] [place] [address] Care Team Providers Care Vegetable Vendor Name Role Phone Marcelo Garcia MD Primary Care Provider [phone] Reason for Visit * Reason Comments Eye Problem 3 days with discharg e and pain Encounter Details Date Type Department Care Team (Latest Contact Info) Description 08/13/2017 10:00 AM JAVA SUPPORT ENGINEER Office Visit [facility] [address] [place] [address] Provider, [facility] Exp Nameoki Acute bacterial conjunctivitis of left [...] Comments Blood Pressure 108/58 08/13/2017 10:05 AM JAVA SUPPORT ENGINEER Pulse 81 08/13/2017 10:05 AM JAVA SUPPORT ENGINEER Temperature 36.8 ??C (98.2 ??F) 08/13/2017 10:[address] Respiratory Rate - - Oxygen Saturation 99% 08/13/2017 10:05 AM JAVA SUPPORT ENGINEER Inhaled Oxygen Concentration - - Weight 65.8 kg (145 lb) 08/13/2017 10:05 AM JAVA SUPPORT ENGINEER Height 165.1 cm (5' 5 ) 08/13/2017 10:05 AM JAVA SUPPORT ENGINEER Body Mass Index 24.13 08/13/2017 10:05 AM JAVA SUPPORT ENGINEER documented in this encounter Patient Instructions * Patient Instructions* Pat Reno, SPINNING MULE TENDER-SENIOR HUMAN RESOURCES REPRESENTATIVE - 08/13/2017 10:30 AM JAVA SUPPORT ENGINEER Images from the original note were not included. Conjunctivitis VOLUNTEER RECRUITMENT COORDINATOR: Conjunctivitis, or pink eye, is inflammation of [...] mascara and other eye makeup. ?? 2016 [employer]. Information is for End User's use only and may not be sold, redistributed or otherwise used for commercial purposes. All illustrations and images included in CareNotes?? are the copyrighted property of The [employer] or [employer]. The above information is an vocational aide only. It is not intended as medical advice for individual conditions or treatments. Talk to your doctor, nurse or pharmacist before following any medical regimen to see if it is safe and effective for you. Ciprofloxacin (Into the eye) Ciprofloxacin (mwe-sjy-FRIE-a-sin) Treats eye infections. This medicine is a [...] pharmacist before using any other medicine, including ntpp-tur-xxxyvcd medicines, vitamins, and herbal products. ?? Check [...] may report side effects to FDA at 1-967-ZPL-1088 ?? 2016 [employer]. Information is for End User's use only and may not be sold, redistributed or otherwise used for commercial purposes. The above information is an vocational aide only. It is not intended as medical advice for individual conditions or treatments. Talk to your doctor, nurse or pharmacist before following any medical regimen to see if it is safe and effective for you. SUPPORT ENGINEER documented in this encounter Progress Notes * [...] ??? OPEN REDUCTION, ELBOW ??? Tonsillectomy ??? [place] Tooth Extraction . History Smoking Status ??? [...] resolve Seek immediate treatment from ER or sueding and buffing machine operator if any vision changes occur, including, but notlimited to, pain, spots before eyes, decreased visual acuity, sensitivity to light, or any other visual changes. TETE Hodge 10:34 AM 08/13/17 After Visit Summary reviewed with patient. The patient Drea Caal indicates understanding of these issues and agrees with the plan. Patient discharged to Home SUPPORT ENGINEER documented in this encounter Plan of Treatment Not on file documented as of this encounter Visit Diagnoses Diagnosis Acute bacterial conjunctivitis of left eye- Primary documented in this encounter Care Teams Vegetable Vendor Relationship Specialty Start Date End Date Marcelo Garcia MD [address] [address] PCP - General Internal Medicine 08/13/17 documented as of this encounter
--- OUTSIDE RECORDS SUMMARY | 2024-09-25 04:57 | XMS_ITS | Encounter Summary ---
Author Organization [facility] Address [address] [facility] [address] [place] [address] Care Team Providers Care Outside Dealer Sales Representative Name Role Phone Marcelo Garcia MD Primary Care Provider [phone] Reason for Referral * Diagnostic Imaging (Routine) - Closed Specialty Diagnoses / Procedures Referred By Contac t Referred To Contact Diagnoses Encounter for screening mammogram for malignant neoplasm of breast Procedures Screening Mammogram Bilateral W Marcelo Fowler MD [address] [address] Phone: tel: fax: [address] [address] Referral ID Status Reason Start Date Expiration Date Visits Re quested Visits Authorized [id number] Closed 10/26/2021 11/25/2022 1 1 HING SALES ASSISTANT Encounter Details Date Type Department Care Team (Late st Contact Info) Description 10/26/2021 1:30 PM CLOTHING SALES ASSISTANT Office Visit [facility] [address] [place] [address] [address] [place] [address] Marcelo Garcia MD [address] [address] Annual physical exam (Primary Dx); Encounter for screening mammogram for malignant neoplasm of breast Social History Tobacco Use Types Packs/Day Years [...] on file Legal Sex Female 7:02 AM CLOTHING SALES ASSISTANT Gender Identity Female 09/15/2021 9:12 AM CLOTHING SALES ASSISTANT Sexual Orientation Straight 09/15/2021 9: 12 AM CLOTHING SALES ASSISTANT documented as of this encounter Last Filed Vital Signs Vital Sign Reading Time Taken Comments Blood Pressure 118/66 10/26/2021 1:16 PM CLOTHING SALES ASSISTANT Pulse 87 10/26/2021 1:16 PM CLOTHING SALES ASSISTANT Temperature - - Respiratory Rate - - Oxygen Saturation 97% 10/26/2021 1:16 PM CLOTHING SALES ASSISTANT Inhaled Oxygen Concentration - - Weight 62.6 kg (138 lb) 10/26/2021 1:16 PM CLOTHING SALES ASSISTANT Height 165 cm (5' 4.96 ) 10/26/2021 1:16 PM CLOTHING SALES ASSISTANT Body Mass Index 22.99 10/26/2021 1:16 PM CLOTHING SALES ASSISTANT documented in this encounter Progress Notes * Marcelo Garcia MD - 10/26/2021 1:30 PM CST Subjective/Objective Patient ID: Drea Caal is a 41 y.o. female. Chief Complaint Physical Exam HPI P.E. She is here for her annual exam. She is due for a mammogram. Her last LDL was elevated at 145.She walks for exercise. Review of Systems Constitutional: Negative for fatigue. HENT: Negative for sore throat. Respiratory: Negative for shortness of breath. Cardiovascular: Negative for chest pain. Gastrointestinal: Negative for abdominal pain. Musculoskeletal: Negative for back pain. Skin: Positive for rash. Neurological: Negative for dizziness. BP 118/66 (BP Location: Left arm, Patient Position: Sitting) Pulse 87 Ht 165 cm (5' 4.96 ) Wt62.6 kg (138 lb) SpO2 97% BMI 22.99 kg/m?? Physical Exam Constitutional: Appearance: She is well-developed. HENT: Head: Normocephalic. Eyes: Pupils: Pupils are equal, round, and reactive to light. Cardiovascular: Rate and Rhythm: Normal rate and regular rhythm. Heart sounds: Normal heart sounds. Pulmonary: Effort: Pulmonary effort is normal. Breath sounds: Normal breath sounds. Abdominal: General: Bowel sounds are normal. Palpations: Abdomen is soft. Musculoskeletal: General: Normal range of motion. Cervical back: Neck supple. Skin: General: Skin is warm. Neurological: Mental Status: She is alert. Assessment/Plan Diagnoses and all orders for this visit: Annual physical exam (Z00.00) (Primary) Assessment & Plan: Reviewed diet and exercise goals. Await Annual labs. Reviewed immunization and screening status. Advised a baseline mammogram. Reviewed dietary modification for hyperlipidemia. Orders: - Comprehensive metabolic panel; Future - CBC without differential; Future - Lipid panel; Future - TSH reflex to free T4; Future Encounter for screening mammogram for malignant neoplasm of breast (Z12.31) - Screening Mammogram Bilateral W Dedrick; Future HING SALES ASSISTANT documented in this encounter Miscellaneous Notes * Assessment & Plan Note - Marcelo Garcia MD - 10/26/2021 7:06 AM CLOTHING SALES ASSISTANT Associated Problem(s): Annual physical exam Reviewed diet and exercise goals. Await Annual labs. Reviewed immunization and screening status. Advised a baseline mammogram. Reviewed dietary modification for hyperlipidemia. HING SALES ASSISTANT HING SALES ASSISTANT documented in this encounter Plan of Treatment Not on file documented as of this encounter Procedures Procedure Name Priority Date/Time Associated Diagnosis Comments THYROID FUNCTION CASCADE Routine 10/26/2021 1:31 PM CLOTHING SALES ASSISTANT Annual physical exam CBC WITHOUT DIFFERENTIAL Routine 10/26/2021 1:31 PM CLOTHING SALES ASSISTANT Annual physical exam LIPID PANEL Routine 10/26/2021 1:31 PM CLOTHING SALES ASSISTANT Annual physical exam COMPREHENSIVE METABOLIC PANEL Routine 10/26/2021 1:31 PM CLOTHING SALES ASSISTANT Annual physical exam documented in this encounter Results * Screening Mammogram Bilateral W Dedrick (11/01/2021 9:58 AM CLOTHING SALES ASSISTANT) Anatomical Region Laterality Modality Breast Bilateral Mammography Narrative 11/01/2021 4:17 PM CLOTHING SALES ASSISTANT Mammogram Technique: Bilateral Digital Breast Tomosynthesis, Bilateral C-view 2D Screening mammogram. ??Views obtained: ??bilateral craniocaudal and bilateral mediolateral oblique. ??Computer Aided Detection was performed. Mammogram Findings: The present examination has been compared to prior imaging studies performed on 06/29/2018, and at [facility] on 09/20/2018. The breasts are heterogeneously dense, which may obscure small masses. There is no suspicious abnormality in either breast. Impression: There is no mammographic evidence of malignancy. Annual screening mammography is recommended. OVERALL FINAL ASSESSMENT: BI-RADS CATEGORY 1: ??Negative. Procedure Note Sally Oliver MD - 11/01/2021 Mammogram Technique: Bilateral Digital Breast Tomosynthesis, Bilateral C-view 2D Screening mammogram. Views obtained: bilateral craniocaudal and bilateral mediolateral oblique. Computer Aided Detection was performed. Mammogram Findings: The present examination has been compared to prior imaging studies performed on 06/29/2018, and at [facility] on 09/20/2018. The breasts are heterogeneously dense, which may obscure small masses. There is no suspicious abnormality in either breast. Impression: There is no mammographic evidence of malignancy. Annual screening mammography is recommended. OVERALL FINAL ASSESSMENT: BI-RADS CATEGORY 1: Negative. us Marcelo Garcia MD IMG MAMMO PROCEDURES Final Re sult * TSH reflex to free T4 (10/26/2021 1:31 PM CLOTHING SALES ASSISTANT) TSH 2.56 mIU/L [facility] Comment: ?Reference Range ?> or = 20 Years ??0.40-4.50 ? Ranges ?First trimester ?0.26-2.66 ?Second trimester ?? 0.55-2.73 ?Third trimester ?0.43-2.91 Blood specimen (specimen) 10/26/2021 1:31 PM CLOTHING SALES ASSISTANT 10/27/2021 10:16 AM CLOTHING SALES ASSISTANT Marcelo Garcia MD LAB BLOOD ORDERABLES Final Re sult [facility] [address] [place] [address] * (ABNORMAL) Lipid panel (10/26/2021 1:31 PM CLOTHING SALES ASSISTANT) Cholesterol 223(H) <200 mg/dL [facility] HDL 83 > OR = 50 mg/dL [facility] Triglycerides 93 <150 mg/dL [facility] LDL 121(H) mg/dL (calc) [facility] Comment: Reference range: <100 Desirable range <100 mg/dL for primary prevention; ?? <70 mg/dL for patients with CHD or diabetic patients with > or = 2 CHD risk factors. LDL-C is now calculated using the Homar-Gao calculation, which is a validated novel method providing better accuracy than the Friedewald equation in the estimation of LDL-C. Homar BOATENG et al. ANTONIO. 2013;310(19): 7392-5884 (http://education.Adaptics.Social & Loyal/faq/JWF191) Chol/HDL ratio 2.7 <5.0 (calc) [facility] Non-HDL, (LDL+VLDL) 140(H) <130 mg/dL (calc) [facility] Comment: For patients with diabetes plus 1 major ASCVD risk factor, treating to a non-HDL-C goal of <100 mg/dL (LDL-C of <70 mg/dL) is considered a therapeutic option. Blood specimen (specimen) 10/26/2021 1:31 PM CLOTHING SALES ASSISTANT 10/27/2021 10:16 AM CLOTHING SALES ASSISTANT Marcelo Garcia MD LAB BLOOD ORDERABLES Final Re sult Performing Organization Address [facility] de Phone Number [facility] [address] [place] [address] * CBC without differential (10/26/2021 1:31 PM CLOTHING SALES ASSISTANT) WBC 4.6 3.8 - 10.8 Thousand/uL [facility] RBC, POC 4.31 3.80 - 5.10 Million/uL [facility] Hgb 12.5 11.7 - 15.5 g/dL [facility] Hct 37.0 35.0 - 45.0 % [facility] MCV 85.8 80.0 - 100.0 fL [facility] MCH 29.0 27.0 - 33.0 pg [facility] MCHC 33.8 32.0 - 36.0 g/dL [facility] Rdw 11.9 11.0 - 15.0 % [facility] Platelets 313 140 - 400 Thousand/uL [facility] MPV 10.1 7.5 - 12.5 fL [facility] Blood specimen (specimen) 10/26/2021 1:31 PM CLOTHING SALES ASSISTANT 10/27/2021 10:16 AM CLOTHING SALES ASSISTANT Marcelo Garcia MD LAB BLOOD ORDERABLES Final Re sult Performing Organization Address [facility] de Phone Number [facility] [address] [place] [address] * Comprehensive metabolic panel (10/26/2021 1:31 PM CLOTHING SALES ASSISTANT) Glucose 98 65 - 99 mg/dL [facility] Comment: ? Fasting reference interval BUN 13 7 - 25 mg/dL [facility] Creatinine 0.68 0.50 - 1.10 mg/dL [facility] eGFR NON-AFR. VINCENTIAN 109 > OR = 60 mL/min/1. 73m2 [facility] EGFR 127 > OR = 60 mL/min/1. 73m2 [facility] BUN/creat ratio NOT APPLICABLE 6 - 22 (calc) [facility] Sodium 140 135 - 146 mmol/L [facility] Potassium, pl 3.8 3.5 - 5.3 mmol/L [facility] Chloride 103 98 - 110 mmol/L [facility] CO2 28 20 - 32 mmol/L [facility] Calcium 9.4 8.6 - 10.2 mg/dL [facility] Protein, sr 7.3 6.1 - 8.1 g/dL [facility] Albumin 4.8 3.6 - 5.1 g/dL [facility] GLOBULIN 2.5 1.9 - 3.7 g/dL (calc) [facility] Alb/glob ratio 1.9 1.0 - 2.5 (calc) [facility] Bilirubin, total 0.6 0.2 - 1.2 mg/dL [facility] Alk phos 48 31 - 125 U/L [facility] AST 18 10 - 30 U/L [facility] ALT (SGPT) 20 6 - 29 U/L [facility] Blood specimen (specimen) 10/26/2021 1:31 PM CLOTHING SALES ASSISTANT 10/27/2021 10:16 AM CLOTHING SALES ASSISTANT Marcelo Garcia MD LAB BLOOD ORDERABLES Final Re sult [facility] [address] [place] [address] documented in this encounter Visit Diagnoses Diagnosis Annual physical exam- Primary Routine general medical examination at a health care facility Encounter for screening mammogram for malignant neoplasm of breast Encounter for screening mammogram for malignant neoplasm of breast documented in this encounter Care Teams Outside Dealer Sales Representative Relationship Specialty Start Date End Date Marcelo Garcia MD [address] [facility] [address] [place] [address] PCP - General 09/13/12 documented as of this encounter
--- OUTSIDE RECORDS SUMMARY | 2024-09-25 04:57 | XMS_ITS | Encounter Summary ---
Author Organization [facility] Address [address] [place] [address] Care Team Providers Care Insurance Auditor Name Role Phone Marcelo Garcia MD Primary Care Provider [phone] Encounter Details Date Type Department Care Team (Latest Contact Info) Description 10/06/2023 4:18 PM YOUTH SPECIALIST - 10/06/2023 11:59 PM YOUTH SPECIALIST Hospital Encounter [address] [address] Acute ethmoidal sinusitis, recurrence not specified Discharge Disposition: Discharge to home or self [...] on file Legal Sex Female 7:02 AM YOUTH SPECIALIST Gender Identity Female 09/15/2021 9:12 AM YOUTH SPECIALIST Sexual Orientation Straight 09/15/2021 9: 12 AM YOUTH SPECIALIST documented as of this encounter Medications at Time of Discharge doxycycline (VIBRAMYCIN) 100 mg capsuleIndicatio ns:Acute ethmoidal sinusitis, recurrence not specified Take 1 tablet/capsule (100 mg total) by mouth 2 (two) times a day for 7 days 14 tablet/capsule 10/06/2023 ALPRAZolam (XANAX) 0.25 mg tablet Take 1 [...] or self care documented in this encounter Miscellaneous Notes * Result Encounter Note - Drea Monroe MA - 10/06/2023 11:59 PM YOUTH SPECIALIST Patient states she is feeling better at the time. H SPECIALIST documented in this encounter Plan of Treatment Not on file documented as of this encounter Procedures Procedure Name Priority Date/Time Associated Diagnosis Comments AEROBIC AND ANAEROBIC CULTURE AND GRAM STAIN Routine 10/06/2023 4:18 PM YOUTH SPECIALIST Acute ethmoidal sinusitis, recurrence not specified documented in this encounter Results * (ABNORMAL) Aerobic and anaerobic culture and gram stain Wound Face (10/06/2023 4:18 PM YOUTH SPECIALIST) Direct Specimen Exam Stain: No polymorphonuclear leukocytes seen. Rare Gram Positive Bacilli Slide reviewed and direct smear was updated. [facility] Comment:Testing performed by : [facility], [address] [place] [address]., [id number] Report Final Report: Moderate Mixed Gram-positive microorganisms (.) [facility] Comment:Testing performed by : [facility], [address] [place]., [address] Organism MIXED GRAM POSITIVE MICROORGANISMS [facility] Wound (Face) 10/06/2023 4:18 PM YOUTH SPECIALIST 10/06/2023 10:22 PM YOUTH SPECIALIST Narrative [facility] - 10/10/2023 9:56 AM YOUTH SPECIALIST Nares Specimen received on an ESwab. Testing performed by [facility] Microbiology Laboratory ([phone]) Specimens submitted from normally sterile body sites will have all bacterial morphotypes identified. Specimens that contain grossly mixed caroline and/or are from body sites that are not normally sterile will be examined for Staphylococcus aureus, Pseudomonas aeruginosa, beta-hemolytic strep, vancomycin-resistant Enterococcus, Bacteroides, Parabacteroides, Clostridium perfringens and fungus. If any of these are isolated, the organism will be reported. Current interpretive data was last revised on 2019. Boston Arredondo NP LAB MICROBIOLOGY - GENERAL TONYA NELSON Final Result [facility] [address] [address] Department [place] [address] documented in this encounter Visit Diagnoses Diagnosis Acute ethmoidal sinusitis, recurrence not specified documented in this encounter Care Teams Insurance Auditor Relationship Specialty Start Date End Date Marcelo Garcia MD [address] [facility] [address] [place] [address] PCP - General 09/13/12 documented as of this encounter
--- OUTSIDE RECORDS SUMMARY | 2024-09-25 04:57 | XMS_ITS | Encounter Summary ---
Author Organization [facility] Address [address] [place] [address] Care Team Providers Care Stage Electrician Helper Name Role Phone Marcelo Garcia MD Primary Care Provider Encounter Details Date Type Department Care Team (Late st Contact Info) Description 10/06/2021 8:45 AM STATION HELPER Telemedicine [facility] [address] [place] [address] Vicky Abarca PA [address] [facility] [place], [place] [id number] Left eye symptoms (Primary Dx) Social History Tobacco Use Types [...] on file Legal Sex Female 7:02 AM STATION HELPER Gender Identity Female 09/15/2021 9:12 AM STATION HELPER Sexual Orientation Straight 09/15/2021 9: 12 AM STATION HELPER documented as of this encounter Last Filed Vital Signs Vital Sign Reading Time Taken Comments Blood Pressure - - Pulse - - Temperature - - Respiratory Rate - - Oxygen Saturation - - Inhaled Oxygen Concentration - - Weight 63.5 kg (140 lb) 10/06/2021 8:40 AM STATION HELPER Height 165 cm (5' 4.96 ) 10/06/2021 8:40 AM STATION HELPER Body Mass Index 23.33 10/06/2021 8:40 AM STATION HELPER documented in this encounter Ordered Prescriptions Prescription Sig Dispense Quantity Refills Last Filled Start Date End Date doxycycline (VIBRAMYCIN) 100 mg capsuleIndications: Left eye symptoms Take 1 tablet/caps ule (100 mg total) by mouth 2 (two) times a day for 10 days 20 tablet/capsule 10/06/2021 10/16/2021 documented in this encounter Progress Notes * Vicky Abarca PA - 10/06/2021 8:45 AM CST Images from the original note were not included. Subjective/Objective Patient ID: Drea Caal is a 41 y.o. female. Chief Complaint Eye concerns HPI: This was a telemedicine visit with Drea Caal alone which took place via real-time video connection with [employer]. During the visit, I was located in the office in [place] and the patient was located at home in [place]. The patient visit started at 0857 and ended at 0903. My total encounter time on 10/06/2021 was 30 minutes which was spent in the activities documented in the note. This includes time spent prior to the visit and after the visit in direct care of the patient. This time does not include time spent in any separately reportable services.. The patient has been informed that the visit may not be secure and acknowledged the information. I have explained the option of participating in a telephone or video visit during the [place] [address] [facility] emergency to the patient. After being given an opportunity to ask questions about and discuss this type of visit, the patient verbally consented to proceeding with the telephone/video visit.The patient understands that this service replaces an office visit and they may be billed and/or responsible for any applicable copayments. ANEL Loving She complains of medial left eye pain which started several days ago. She endorses occasional thickyellow discharge which causes temporary blurry vision. No local swelling, periorbital swelling or redness. No complaints of sinus pain. No known exposure to conjunctivitis. No recent eye injury. She feels well. Past Medical History: Diagnosis Date ??? HX OTHER MEDICAL elbow fracture Past Surgical History: Procedure Laterality Date ??? ORIF ELBOW FRACTURE Left 2006 ??? TONSILLECTOMY 2000 ??? WISDOM TOOTH EXTRACTION 1997 Family History: No family history on file. Social History: Social History Socioeconomic History ??? Marital status: Spouse name: Not on file ??? Number of children: Not on file ??? Years of education: Not on file ??? Highest education level: Not on file Occupational History ??? Not on file Tobacco Use ??? Smoking status: Former Smoker ??? Smokeless tobacco: Never Used Substance and Sexual Activity ??? Alcohol use: Yes Comment: socially ??? Drug use: Not on file ??? Sexual activity: Defer Other Topics Concern ??? Not on file Social History Narrative ??? Not on file Social Determinants of Health Financial Resource Strain: Not on file Food Insecurity: Not on file Transportation Needs: Not on file Physical Activity: Not on file Stress: Not on file Social Connections: Not on file Intimate Partner Violence: Not on file Housing Stability: Not on file No problems updated. Current Outpatient Medications on File Prior to Visit Medication Sig Dispense Refill ??? ALPRAZolam (XANAX) 0.25 mg tablet Take 1 tablet (0.25 mg total) by mouth daily as needed for anxiety. 30 tablet 5 ??? ciprofloxacin (CILOXAN) 0.3 % ophthalmic solution Administer 1 drop into the left eye every 2 (two) hours 1gtt, q 2hr, while awake,x 2 days.Then 1gtt, q 4hr, while awake,x 5 days 5 mL 0 ??? fluocinonide (LIDEX) 0.05 % external solution Apply topically 2 (two) times a day as needed forirritation or rash 60 mL 11 ??? griseofulvin (CARLOS-PEG) 250 mg tablet Take 1 tablet (250 mg total) by mouth daily 60 tablet 1 ??? meclizine (ANTIVERT) 25 mg tablet Take 1 tablet (25 mg total) by mouth 3 (three) times a day asneeded for dizziness CAUTION: MAY CAUSE DROWSINESS. 20 tablet 0 No current facility-administered medications on file prior to visit. Review of Systems: Review of Systems Constitutional: Negative for chills, fatigue and fever. HENT: Negative for congestion, facial swelling, postnasal drip, sinus pressure and sinus pain. Eyes: Positive for pain and discharge. Negative for redness and visual disturbance. Neurological: Tremors: Physical Exam: Ht 165 cm (5' 4.96 ) Wt 63.5 kg (140 lb) BMI 23.33 kg/m?? Normal appearance. No obvious distress. Sclera is normal in appearance. No periocular erythema or swelling observed. No pain with eye movements. Tenderness over medial epicanthus reported. Breathing is even and nonlabored. Alert. Normal mood and affect. Assessment/Plan Diagnoses and all orders for this visit: Left eye symptoms (Primary) Comments: Discussed patient's symptoms and exam findings with Dr. Garcia. Difficult to determine symptom etiology. Differential diagnosis includes preseptal cellulitis vs sinusitis and less likely orbital cellulitis. Doxycycline prescribed. Ophthalmology evaluation advised. Orders: - doxycycline (VIBRAMYCIN) 100 mg capsule; Take 1 tablet/capsule (100 mg total) by mouth 2 (two) times a day for 10 days ANEL Loving ION HELPER documented in this encounter Plan of Treatment Not on file documented as of this encounter Visit Diagnoses Diagnosis Left eye symptoms- Primary documented in this encounter Discontinued Medications Medication Sig Discontinue Reason Start Date End Da te ciprofloxacin (CILOXAN) 0.3 % ophthalmic solution Administer 1 drop into the left eye every 2 (two) hours 1gtt, q 2hr, while awake,x 2 days.Then 1gtt, q 4hr, while awake,x 5 days Other 03/29/2019 10/06/2021 griseofulvin (CARLOS-PEG) 250 mg tablet Take 1 tablet (250 mg total) by mouth daily Other 08/19/2021 10/06/2021 meclizine (ANTIVERT) 25 mg tablet Take 1 tablet (25 mg total) by mouth 3 (three) times a day as needed for dizziness CAUTION: MAY CAUSE DROWSINESS. Other 09/15/2021 10/06/2021 documented as of this encounter Care Teams Stage Electrician Helper Relationship Specialty Start Date End Date Marcelo Garcia MD [address] [facility] [address] [facility] [facility] [place] [address] PCP - General 09/13/12 documented as of this encounter
--- OUTSIDE RECORDS SUMMARY | 2024-09-25 04:57 | XMS_ITS | Encounter Summary ---
Author Organization [facility] Address [facility] [place] [address] Care Team Providers Care Typewriter Assembler Name Role Phone Unavailable Primary Care Provider Unavailabl e Reason for Visit * Reason Onset Date Comments Follow-up 08/17/2016 Encounter Details Date Type Department Care Team (Late st Contact Info) Description 08/17/2016 Telephone [facility] [place] [facility] [address] [place] [address] Provider, Shanti Cruz Nameoki Follow-up [...]
--- OUTSIDE RECORDS SUMMARY | 2024-09-25 04:57 | XMS_ITS | Referral Summary ---
Author Organization [facility] Address [address] [place] [address] Care Team Providers Care Machine Whitener Name Role Phone Marcelo Garcia MD Primary Care Provider [phone] Source Comments [facility] [employer],non-owned Affiliates and Associated Physician Practices is amultiple site organization consisting of ambulatory clinics and hospital sitesin [place], [place], [place] and [place]. This disclosure is being madepursuant to the Care Everywhere program and may not contain all information available regarding this patient. Last updated 18.[employer] Allergies No known active allergies Medications Be [...] Comments Blood Pressure 108/58 08/13/2017 10:05 AM MAT PACKER Pulse 81 08/13/2017 10:05 AM MAT PACKER Temperature 36.8 ??C (98.2 ??F) 08/13/2017 10:[address] Respiratory Rate 18 08/15/2016 9:13 AM MAT PACKER Oxygen Saturation 99% 08/13/2017 10:05 AM MAT PACKER Inhaled Oxygen Concentration - - Weight 65.8 kg (145 lb) 08/13/2017 10:05 AM MAT PACKER Height 165.1 cm (5' 5 ) 08/13/2017 10:05 AM MAT PACKER Body Mass Index 24.13 08/13/2017 10:05 AM MAT PACKER Plan of Treatment Not on file Care Teams Machine Whitener Relationship Specialty Start Date End Date Marcelo Garcia MD [address] [address] PCP - General Internal Medicine 08/13/17
--- OUTSIDE RECORDS SUMMARY | 2024-09-25 04:57 | XMS_ITS | Encounter Summary ---
Author Organization [facility] Address [address] [place] [address] Care Team Providers Care Tobacco Grower Name Role Phone Marcelo Garcia MD Primary Care Provider [phone] Reason for Visit * Reason Comments Chills Generalized Body Aches Nasal Congestion Started on Monday Cough Chest Pain Sharp pain, on the l eft side of her chest under her breast Encounter Details Date Type Department Care Team (Late st Contact Info) Description 09/13/2024 10:00 AM STEEL MELTER Office Visit [facility] [place] [id number] Rosita Nuñez NP [address] [place] [address] [address] [place] [id number] Upper respiratory infection, acute (Primary Dx); Chest pain, unspecified type Social History Tobacco Use Types Packs/Day Years [...] on file Legal Sex Female 7:02 AM STEEL MELTER Gender Identity Female 09/15/2021 9:12 AM STEEL MELTER Sexual Orientation Straight 09/15/2021 9: 12 AM STEEL MELTER documented as of this encounter Last Filed Vital Signs Vital Sign Reading Time Taken Comments Blood Pressure 110/78 09/13/2024 10:11 AM STEEL MELTER Pulse 88 09/13/2024 10:11 AM STEEL MELTER Temperature 36.8 ??C (98.3 ??F) 09/13/2024 10:11 AM C Respiratory Rate 18 09/13/2024 10:11 AM STEEL MELTER Oxygen Saturation 96% 09/13/2024 10:11 AM STEEL MELTER Inhaled Oxygen Concentration - - Weight 65.3 kg (144 lb) 09/13/2024 10:11 AM STEEL MELTER Height 162.6 cm (5' 4.02 ) 09/13/2024 10:[address] Body Mass Index 24.71 09/13/2024 10:11 AM STEEL MELTER documented in this encounter Patient Instructions * Patient Instructions* Rosita Nuñez, CRITICAL CARE NURSE PRACTITIONER - 09/13/2024 10:00 AM STEEL MELTER The main treatment for respiratory infections of any kind is to rest, eat healthy, and drink plentyof fluids. Cold symptoms will likely last anywhere from 7-10 days with symptoms feeling much worse on days 3-5. Antibiotic medications do not cure a cold nor do antibiotic medications help to shortenthe symptoms of viral illness. The following may help you feel better: Over the counter antihistamine such as loratadine (Claritin) or cetirizine (Zyrtec) to reduce secretions. The D formula includes pseudoephedrine and can be helpful as a decongestant but should not be used if you have a history of high blood pressure. Don't smoke and avoid second hand smoke. Suck on cough drops or hard candies to soothe a dry or sore throat. Cough drops won't stop your cough, but they may make your throat feel better. Over the counter loratadine (Claritin) or cetirizine (Zyrtec) to reduce secretions. Mucinex to thin secretions Breathe moist air from a humidifier, a hot shower, or a sink filled with hot water. The heat and moisture can help keep mucus in your airways moist so you can cough it out easily. Use nonprescription medicine, such as acetaminophen, ibuprofen, or aspirin, to relieve fever and body aches. Don't give aspirin to anyone younger than age 20. Rest more than usual. Drink plenty of fluids so that you do not become dehydrated and to keep mucous thin. Use an gkgc-bhf-jvcciky cough medicine such as Delsym or Robitussin. (Cough medicines may not be safe for young children or for people who have certain health problems.) Cough suppressants may help you to stop coughing. Expectorants, such as Mucinex, can help you bring up mucus when you cough. Follow up with primary care physician in 1 week, or sooner if symptoms worsen. If you experience worsening shortness of breath or fever >101, go to the Emergency Room. L MELTER * Attachments The following attachments cannot be sent through Care Everywhere. * Cold Symptoms (Picture Framer) (Zambian) documented in this encounter Progress Notes * Rosita Nuñez NP - 09/13/2024 10:00 AM CST Images from the original note were not included. Patient ID: Drea Caal is a 44 y.o. female followed by Marcelo Garcia MD Chief Complaint Patient presents with Chills Generalized Body Aches Nasal Congestion Started on Monday Cough Chest Pain Sharp pain, on the left side of her chest under her breast Patient presents to the clinic with reports of chills, body aches, congestion, and cough for 4 days. She reports that she had sharp, left side chest pain on and off 2 night ago but none since. Deniesfevers, weakness, history of cardiac issues, dizziness, and nausea. Patient denies any family history of cardiac issues. She has taken ibuprofen and tylenol for her symptoms. Review of Systems Constitutional: Positive for chills. Negative for fatigue and fever. HENT: Positive for congestion. Negative for ear pain, postnasal drip, rhinorrhea, sinus pressure and sore throat. Respiratory: Positive for cough. Negative for shortness of breath and wheezing. Cardiovascular: Positive for chest pain (resolved). Gastrointestinal: Negative for nausea. Musculoskeletal: Positive for myalgias. Neurological: Negative for headaches. Vitals: 09/13/24 1011 BP: 110/78 Pulse: 88 Resp: 18 Temp: 36.8 ??C (98.3 ??F) SpO2: 96% Weight: 65.3 kg (144 lb) Height: 162.6 cm (5' 4.02 ) Recent Results (from the past 24 hours) POC Influenza A/B, COVID-19 antigen Collection Time: 09/13/24 10:31 AM Result Value Ref Range Influenza A Ag, POC Negative Negative Influenza B Ag, POC Negative Negative COVID-19 Ag POC Presumptive Negative Presumptive Negative, Invalid Physical Exam Vitals reviewed. Constitutional: General: She is not in acute distress. Appearance: Normal appearance. She is not ill-appearing. HENT: Head: Normocephalic. Right Ear: Tympanic membrane, ear canal and external ear normal. No middle ear effusion. Tympanic membrane is not erythematous or bulging. Left Ear: Tympanic membrane, ear canal and external ear normal. No middle ear effusion. Tympanic membrane is not erythematous or bulging. Nose: Congestion present. No rhinorrhea. Right Sinus: No maxillary sinus tenderness or frontal sinus tenderness. Left Sinus: No maxillary sinus tenderness or frontal sinus tenderness. Mouth/Throat: Lips: [place]. Mouth: Mucous membranes are moist. Pharynx: Uvula midline. No pharyngeal swelling, oropharyngeal exudate or posterior oropharyngeal erythema. Cardiovascular: Rate and Rhythm: Normal rate and regular rhythm. Pulmonary: Effort: Pulmonary effort is normal. No respiratory distress. Breath sounds: Normal breath sounds. No decreased breath sounds or wheezing. Lymphadenopathy: Cervical: No cervical adenopathy. Skin: General: Skin is warm. Neurological: Mental Status: She is oriented to person, place, and time. Psychiatric: Behavior: Behavior is cooperative. Diagnoses and all orders for this visit: Upper respiratory infection, acute (Primary) - POC Influenza A/B, COVID-19 antigen Chest pain, unspecified type Comments: Resolved 2 days ago Orders Placed This Encounter Procedures POC Influenza A/B, COVID-19 antigen Order Specific Question: Is the Patient experiencing symptoms consistent with COVID? Answer: Yes Order Specific Question: Is the patient hospitalized? Answer: No Order Specific Question: Is the patient admitted to an ICU? Answer: No Order Specific Question: Does the patient currently work in a healthcare facility with direct patient contact? Answer: No Order Specific Question: Is the patient a resident of a congregate care or living setting? Answer: No Order Specific Question: ? Answer: No Order Specific Question: Is this the first COVID-19 test for this patient? Answer: No Assessment/Plan # acute upper respiatory infection --likely viral --Rapid flu and COVID negative in office --Patient to follow up with primary care doctor in the next 1-2 days to discuss sharp chest pain that occurred 2 days ago. Discussed with patient that if symptoms return and or new symptoms occur such as dizziness, weakness, shortness of breath, or any other worrying symptoms she is to go to the ERimmediately. Patient verbalized understanding. --exam findings warrant no antibiotics, antiviral, or steroid at this time --Urgl-lqt-obnwcxe antihistamine such as Claritin or Zyrtec will aid in alleviation of symptoms such as nasal drainage and sinus drainage. Benadryl can be sedating, I suggest using it at bedtime. --Nasal spray, such as Flonase may also aid in nasal congestion. This may also be purchased over the counter. --COVID/FLU swab negative today --ED presentation with one or more of the following symptoms: fever uncontrolled with antipyretics,shortness of breath, chest discomfort, uncontrolled n/v/d --f/u with PCP in 5-7 days if symptoms do not improve/worsen Disposition Treatment plan including expectations, follow up, and return precautions discussed with patient/parent, verbalizes understanding. Medication dosage, use, and potential adverse reactions discussed with patient/parent. Advised to follow up with PCP if symptoms do not resolve as expected or sooner if condition worsens. Discussed Signs/symptoms warranting ER evaluation including worsening fever, increased shortness ofbreath, chest pain, severe N/V/D, or any other worrisome symptoms Patient and/or guardian was given an opportunity to ask questions, questions answered. Patient Education The main treatment for respiratory infections of any kind is to rest, eat healthy, and drink plentyof fluids. Cold symptoms will likely last anywhere from 7-10 days with symptoms feeling much worse on days 3-5. Antibiotic medications do not cure a cold nor do antibiotic medications help to shortenthe symptoms of viral illness. The following may help you feel better: Over the counter antihistamine such as loratadine (Claritin) or cetirizine (Zyrtec) to reduce secretions. The D formula includes pseudoephedrine and can be helpful as a decongestant but should not be used if you have a history of high blood pressure. Don't smoke and avoid second hand smoke. Suck on cough drops or hard candies to soothe a dry or sore throat. Cough drops won't stop your cough, but they may make your throat feel better. Over the counter loratadine (Claritin) or cetirizine (Zyrtec) to reduce secretions. Mucinex to thin secretions Breathe moist air from a humidifier, a hot shower, or a sink filled with hot water. The heat and moisture can help keep mucus in your airways moist so you can cough it out easily. Use nonprescription medicine, such as acetaminophen, ibuprofen, or aspirin, to relieve fever and body aches. Don't give aspirin to anyone younger than age 20. Rest more than usual. Drink plenty of fluids so that you do not become dehydrated and to keep mucous thin. Use an eeue-hyw-vjwraqu cough medicine such as Delsym or Robitussin. (Cough medicines may not be safe for young children or for people who have certain health problems.) Cough suppressants may help you to stop coughing. Expectorants, such as Mucinex, can help you bring up mucus when you cough. Follow up with primary care physician in 1 week, or sooner if symptoms worsen. If you experience worsening shortness of breath or fever >101, go to the Emergency Room. Rosita Nuñez NP This office note has been partially dictated using [employer] software, and as a result portions of the record may have been created with this software. Occasional wrong-word or 'qerir-u-hzog' substitutions may have occurred due to the inherent limitations of voice recognition software. Read the chartcarefully and recognize, using context, where substitutions have occurred. L MELTER documented in this encounter Plan of Treatment Not on file documented as of this encounter Procedures Procedure Name Priority Date/Time Associated Diagnosis Comments POC INFLUENZA A/B, COVID-19 ANTIGEN Routine 09/13/2024 10:31 AM STEEL MELTER Upper respiratory infection, acute documented in this encounter Results * POC Influenza A/B, COVID-19 antigen (09/13/2024 10:31 AM STEEL MELTER) Influenza A Ag, POC Negative Negative [facility] Influenza B Ag, POC Negative Negative [facility] COVID-19 Ag POC Presumptive Negative Presumptive Negative, Invalid [facility] Nasal 09/13/2024 10:3 1 AM STEEL MELTER Rosita Nuñez NP POINT OF CARE TEST ORDERABLES Final Result Performing Organization Address City/State/[facility] Co de Phone Number [facility] [address] documented in this encounter Visit Diagnoses Diagnosis Upper respiratory infection, acute- Primary Chest pain, unspecified type documented in this encounter Additional Health Concerns Infection Onset Date Last Indicated Resolved Time COVID: Suspected 09/13/2024 09/13/2024 09/13/2024 10:32 AM STEEL MELTER documented as of this encounter Care Teams Tobacco Grower Relationship Specialty Start Date End Date Marcelo Garcia MD [address] [place] [id number] [place] [address] PCP - General 09/13/12 documented as of this encounter
--- OUTSIDE RECORDS SUMMARY | 2024-09-25 04:57 | XMS_ITS | Encounter Summary ---
Author Organization [facility] Address [address] [place] [address] Care Team Providers Care Payroll Human Resources Assistant Name Role Phone Marcelo Garcia MD Primary Care Provider [phone] Encounter Details Date Type Department Care Team (Latest Contact Info) Description 11/08/2022 1:18 PM BOX FINISHER - 11/08/2022 11:59 PM BOX FINISHER Hospital Encounter [address] [address] Discharge Disposition: Discharge to home or self [...] on file Legal Sex Female 7:02 AM BOX FINISHER Gender Identity Female 09/15/2021 9:12 AM BOX FINISHER Sexual Orientation Straight 09/15/2021 9: 12 AM BOX FINISHER documented as of this encounter Medications at Time of Discharge ALPRAZolam (XANAX) 0.25 mg tablet Take 1 tablet (0.25 mg total) by mouth daily as needed for anxiety 30 tablet 5 11/08/2022 fluocinonide (LIDEX) 0.05 % external solution Apply [...] on filedocumented in this encounter Care Teams Payroll Human Resources Assistant Relationship Specialty Start Date End Date Marcelo Garcia MD [address] [facility] [address] [place] [address] PCP - General 09/13/12 documented as of this encounter
--- OUTSIDE RECORDS SUMMARY | 2024-09-25 04:57 | XMS_ITS | Encounter Summary ---
Author Organization [facility] Healthcare Address [facility] [place] [address] Care Team Providers Care Operations And Maintenance Specialist Name Role Phone Marcelo Garcia MD Primary Care Provider [phone] Reason for Visit * Reason Comments Nose Problem X 1 week, pressure i n the bridge of her nose, feels like it is throbbing Encounter Details Date Type Department Care Team (Late st Contact Info) Description 10/06/2023 3:30 PM I&C TECHNICIAN Office Visit [facility]ient Care at [address] [address] Boston Arredondo, YAYA [address] [place] [address] [address] [place] [address] Acute ethmoidal sinusitis, recurrence not specified (Primary Dx) Social History Tobacco Use Types [...] on file Legal Sex Female 7:02 AM I&C TECHNICIAN Gender Identity Female 09/15/2021 9:12 AM I&C TECHNICIAN Sexual Orientation Straight 09/15/2021 9: 12 AM I&C TECHNICIAN documented as of this encounter Last Filed Vital Signs Vital Sign Reading Time Taken Comments Blood Pressure 110/76 10/06/2023 3:24 PM I&C TECHNICIAN Pulse 79 10/06/2023 3:24 PM I&C TECHNICIAN Temperature 36.8 ??C (98.2 ??F) 10/06/2023 3:24 PM CS T Respiratory Rate 18 10/06/2023 3:24 PM I&C TECHNICIAN Oxygen Saturation 98% 10/06/2023 3:24 PM I&C TECHNICIAN Inhaled Oxygen Concentration - - Weight 68.3 kg (150 lb 9.6 oz) 10/06/2023 3:24 P M I&C TECHNICIAN Height 162.6 cm (5' 4.02 ) 10/06/2023 3:24 PM CS T Body Mass Index 25.84 10/06/2023 3:24 PM I&C TECHNICIAN documented in this encounter Patient Instructions * Patient Instructions* Boston Arredondo NP - 10/06/2023 3:30 PM I&C TECHNICIAN If you have no improvement or worsening of your symptoms, please follow up with your Primary Care Provider, Convenient Care and or Emergency Room. I strive to provide you with EXCELLENT service. You may receive a survey after your visit today. If you cannot rate your experience as EXCELLENT, please let us know how we can improve and better meet your needs. Thank you for choosing [facility]! It was my pleasure to see you today, I hope you feel better soon! Boston Arredondo MALTED MILK MASHER I&C TECHNICIAN documented in this encounter Ordered Prescriptions Prescription Sig Dispense Quantity Refills Last Filled Start Date End Date doxycycline (VIBRAMYCIN) 100 mg capsuleIndications: Acute ethmoidal sinusitis, recurrence not specified Take 1 tablet/caps ule (100 mg total) by mouth 2 (two) times a day for 7 days 14 tablet/capsule 10/06/2023 10/13/2023 documented in this encounter Progress Notes * Boston Arredondo NP - 10/06/2023 3:30 PM CST Images from the original note were not included. Subjective/Objective Patient ID: Drea Caal is a 43 y.o. female. Chief Complaint Nose Problem (X 1 week, pressure in the bridge of her nose, feels like it is throbbing ) Patient presents to convenient care with complaints of throbbing pain across bridge of nose bilaterally. Patient states the pain and throbbing feels like it is inside of her nares. Patient states shehad a Upper respiratory infection around Pj time which was completely resolved approximately2 weeks ago. Patient's current symptoms have been present for approximately 5-6 days. Patient has taken ibuprofen with moderate relief. Patient denies any fever, chills, body aches or nasal drainage.Patient denies any history of MRSA. Review of Systems Constitutional: Negative. HENT: Negative for congestion, dental problem, ear pain, facial swelling, rhinorrhea, sneezing, sore throat, trouble swallowing and voice change. Respiratory: Negative. Cardiovascular: Negative. Gastrointestinal: Negative. Genitourinary: Negative. Musculoskeletal: Negative. Neurological: Negative. All other systems reviewed and are negative. Physical Exam Vitals and nursing note reviewed. Constitutional: Appearance: Normal appearance. She is not ill-appearing. HENT: Head: Normocephalic and atraumatic. Nose: No congestion or rhinorrhea. Right Nostril: No foreign body. Left Nostril: No foreign body. Right Turbinates: Not enlarged or swollen. Left Turbinates: Not enlarged or swollen. Right Sinus: No maxillary sinus tenderness or frontal sinus tenderness. Left Sinus: No maxillary sinus tenderness or frontal sinus tenderness. Comments: Ethmoid tenderness bilaterally Cardiovascular: Rate and Rhythm: Normal rate and regular rhythm. Pulses: Normal pulses. Heart sounds: Normal heart sounds. Pulmonary: Effort: Pulmonary effort is normal. Breath sounds: Normal breath sounds. Skin: General: Skin is warm and dry. Capillary Refill: Capillary refill takes less than 2 seconds. Neurological: Mental Status: She is alert and oriented to person, place, and time. Vitals: 10/06/23 1524 BP: 110/76 Pulse: 79 Resp: 18 Temp: 36.8 ??C (98.2 ??F) TempSrc: Oral SpO2: 98% Weight: 68.3 kg (150 lb 9.6 oz) Height: 162.6 cm (5' 4.02 ) No results found. Past Medical History: Diagnosis Date HX OTHER MEDICAL elbow fracture Current Outpatient Medications: ALPRAZolam (XANAX) 0.25 mg tablet, Take 1 tablet (0.25 mg total) by mouth daily as needed for anxiety, Disp: 30 tablet, Rfl: 5 doxycycline (VIBRAMYCIN) 100 mg capsule, Take 1 tablet/capsule (100 mg total) by mouth 2 (two) times a day for 7 days, Disp: 14 tablet/capsule, Rfl: 0 fluocinonide (LIDEX) 0.05 % external solution, Apply topically 2 (two) times a day as needed for irritation or rash (Patient not taking: Reported on 10/06/2023), Disp: 180 mL, Rfl: 11 Allergies Allergen Reactions Penicillins Social History Tobacco Use Smoking status: Former Smokeless tobacco: Never Substance and Sexual Activity Drug use: None Sexual activity: Defer Alcohol Use: Not on file Past Surgical History: Procedure Laterality Date ORIF ELBOW FRACTURE Left 2007 TONSILLECTOMY 2000 WISDOM TOOTH EXTRACTION 1997 Assessment/Plan Diagnoses and all orders for this visit: Acute ethmoidal sinusitis, recurrence not specified (Primary) - doxycycline (VIBRAMYCIN) 100 mg capsule; Take 1 tablet/capsule (100 mg total) by mouth 2 (two) times a day for 7 days -discussed with patient differential diagnosis of ethmoid sinusitis versus MRSA/bacterial infectioninside of the nares. Culture sent. Advised patient if no improvement follow up with PCP and or ENT Patient Education: Doxycycline as prescribed Doxycycline should be taken with at least 240 mL (8 oz) of water to minimize the risk of the tabletgetting stuck in the esophagus and causing local erosions. Patients should stand or sit upright for at least 30 minutes and should eat a meal after taking medication. You can get a sunburn more easily while taking doxycycline. Wear sunscreen when out side, hat etc, to protect against sunburn May take Tylenol and or ibuprofen as needed for pain per package directions Disposition Treatment plan including expectations, follow up, and return precautions discussed with patient/parent, verbalizes understanding. Medication dosage, use, and potential adverse reactions discussed with patient/parent. Advised to follow up with PCP if symptoms do not resolve as expected or sooner if condition worsens. Signs/symptoms warranting ER evaluation reviewed. Patient and/or guardian was given an opportunity to ask questions, questions answered. Boston Arredondo NP This office note has been partially dictated using [employer] software, and as a result portions of the record may have been created with this software. Occasional wrong-word or '[id number]' substitutions may have occurred due to the inherent limitations of voice recognition software. Read the chartcarefully and recognize, using context, where substitutions have occurred. I&C TECHNICIAN documented in this encounter Miscellaneous Notes * Addendum Note - Angelica Staton MA - 10/06/2023 3:30 PM CSTAddended by: ANGELICA STATON on: 10/06/2023 04:16 PM Modules accepted: Orders I&C TECHNICIAN documented in this encounter Plan of Treatment Not on file documented as of this encounter Results * (ABNORMAL) Aerobic and anaerobic culture and gram stain Wound Face (10/06/2023 4:18 PM I&C TECHNICIAN) Direct Specimen Exam Stain: No polymorphonuclear leukocytes seen. Rare Gram Positive Bacilli Slide reviewed and direct smear was updated. DOUGLAS Comment:Testing performed by : [facility], [address] [place]., [address] Report Final Report: Moderate Mixed Gram-positive microorganisms (.) DOUGLAS Comment:Testing performed by : [facility], [address] [place]., [address] Organism MIXED GRAM POSITIVE MICROORGANISMS DOUGLAS Wound (Face) 10/06/2023 4:18 PM I&C TECHNICIAN 10/06/2023 10:22 PM I&C TECHNICIAN Narrative DOUGLAS - 10/10/2023 9:56 AM I&C TECHNICIAN Nares Specimen received on an ESwab. Testing performed by [facility] ([phone]) Specimens submitted from normally sterile body sites [...] - GENERAL TONYA NELSON Final Result DOUGLAS [address] [place] [address] documented in this encounter Visit Diagnoses Diagnosis Acute ethmoidal sinusitis, recurrence not specified- Primary Acute ethmoidal sinusitis, recurrence not specified documented in this encounter Care Teams Operations And Maintenance Specialist Relationship Specialty Start Date End Date Marcelo Garcia MD [address] [facility] [address] [place] [address] PCP - General 09/13/12 documented as of this encounter
--- OUTSIDE RECORDS SUMMARY | 2024-09-25 04:57 | XMS_ITS | Encounter Summary ---
Author Organization [facility] Address [facility] [facility] [place] [address] Care Team Providers Care Intelligence Officer Name Role Phone Unavailable Primary Care Provider Unavailabl e Reason for Visit * Reason Comments Fever Sore Throat Encounter Details Date Type Department Care Team (Late st Contact Info) Description 08/15/2016 9:00 AM MANAGER BRAND Office Visit [facility] [address] [place] [address] Provider, Shanti Exp [address] Strep [...] Comments Blood Pressure 104/62 08/15/2016 9:13 AM MANAGER BRAND Pulse 98 08/15/2016 9:13 AM MANAGER BRAND Temperature 36.8 ??C (98.2 ??F) 08/15/2016 9:13 AM CS T Respiratory Rate 18 08/15/2016 9:13 AM MANAGER BRAND Oxygen Saturation - - Inhaled Oxygen Concentration - - Weight 65.8 kg (145 lb) 08/15/2016 9:13 AM MANAGER BRAND Height 165.1 cm (5' 5 ) 08/15/2016 9:13 AM MANAGER BRAND Body Mass Index 24.13 08/15/2016 9:13 AM MANAGER BRAND documented in this encounter Patient Instructions * Patient Instructions* Melia Lozano APRN-RAW SILK GRADER - 08/15/2016 9:27 AM MANAGER BRAND Images from the original note were not [...] ask them during your visits. ?? 2016 tuul. Information is for End User's use only and may not be sold, redistributed or otherwise used for commercial purposes. All illustrations and images included in CareNotes?? are the copyrighted property of [employer] or [facility]. The above information is an certified nurse aide only. It is not intended as medical advice for individual conditions or treatments. Talk to your doctor, nurse or pharmacist before following any medical regimen to see if it is safe and effective for you. GER BRAND documented in this encounter Progress Notes * [...] Strep A INTERNAL CONTROL Present Lot Number [id number] Expiration Date 52710925 Encounter Diagnosis Name Primary? [...] 10 days Dispense: 20 Tab Refill: 0 GER BRAND documented in this encounter Plan of Treatment Not on file documented as of this encounter Procedures Procedure Name Priority Date/Time Associated Diagnosis Comments STREP A SCREEN - POINT OF CARE (AMB) STL Routine 08/15/2016 9:22 AM MANAGER BRAND Strep throat documented in this encounter Results * (ABNORMAL) STREP A SCREEN (08/15/2016 9:22 AM MANAGER BRAND) Strep A Rapid POCT Positive(A) Negative Strep A Internal Control Present Lot # [id number] Expiration Date 52710925 Throat ENTIRE THROAT (SURFACE REGION OF NECK) / Unknown 08/15/2016 9:22 AM MANAGER BRAND [facility] - POINT O F CARE ORDERABLES documented in this encounter Visit Diagnoses Diagnosis Strep throat- Primary Streptococcal sore throat documented in this encounter
--- OUTSIDE RECORDS SUMMARY | 2024-09-25 04:57 | XMS_ITS | Encounter Summary ---
Author Organization [facility] Address [address] [place] [address] Care Team Providers Care Lobby Porter Name Role Phone Marcelo Garcia MD Primary Care Provider [phone] Reason for Referral * Diagnostic Imaging (Routine) - Closed Specialty Diagnoses / Procedures Referred By Zulma t Referred To Contact Diagnoses Encounter for screening mammogram for malignant neoplasm of breast Procedures Screening Mammogram Bilateral W Marcelo Fowler MD [address] [address] [address] Phone: tel: fax: [address] [address] Referral ID Status Reason Start Date Expiration Date Visits Re quested Visits Authorized [id number] Closed 10/26/2021 11/25/2022 1 1 E BUILDER Reason for Visit * Diagnostic Imaging (Routine) - Closed Specialty Diagnoses / Procedures Referred By Contlucía t Referred To Contact Diagnoses Encounter for screening mammogram for malignant neoplasm of breast Procedures Screening Mammogram Bilateral W Marcelo Fowler MD [address] [address] Phone: tel: fax: [address] [address] Referral ID Status Reason Start Date Expiration Date Visits Re quested Visits Authorized [id number] Closed 10/26/2021 11/25/2022 1 1 Encounter Details Date Type Department Care Team (Latest Contact Info) Description 11/01/2021 9:48 AM FENCE BUILDER - 11/01/2021 11:59 PM FENCE BUILDER Hospital Encounter [facility] [address] [place] [address] Marcelo Garcia MD [address] [facility] [address] [place] [address] Encounter for screening mammogram for malignant neoplasm of breast Discharge Disposition: Discharge to home or self [...] on file Legal Sex Female 7:02 AM FENCE BUILDER Gender Identity Female 09/15/2021 9:12 AM FENCE BUILDER Sexual Orientation Straight 09/15/2021 9: 12 AM FENCE BUILDER documented as of this encounter Medications at Time of Discharge fluocinonide (LIDEX) 0.05 % external solution Apply topically 2 (two) times a day as needed for irritation or rash 60 mL 11 09/03/2021 2 ALPRAZolam (XANAX) 0.25 mg tablet Take 1 tablet (0.25 mg total) by mouth daily as needed for anxiety. 30 tablet 5 10/26/2018 3 documented as of this encounter Discharge Disposition Disposition Code Departure Means Destination Discharge to home or self care documented in this encounter Plan of Treatment Not on file documented as of this encounter Procedures Procedure Name Priority Date/Time Associated Diagnosis Comments SCREENING MAMMOGRAM BILATERAL W DEDRICK Schedule Routine, Read Routine (OP Routine) 11/01/2021 9:58 AM FENCE BUILDER Encounter for screening mammogram for malignant neoplasm of breast documented in this encounter Results * Screening Mammogram Bilateral W Dedrick (11/01/2021 9:58 AM FENCE BUILDER) Anatomical Region Laterality Modality Breast Bilateral Mammography Narrative 11/01/2021 4:17 PM FENCE BUILDER Mammogram Technique: Bilateral Digital Breast Tomosynthesis, Bilateral C-view 2D Screening mammogram. ??Views obtained: ??bilateral craniocaudal and bilateral mediolateral oblique. ??Computer Aided Detection was performed. Mammogram Findings: The present examination has been compared to prior imaging studies performed on 06/29/2018, and at [facility] on 09/20/2018. The breasts are heterogeneously dense, [...] imaging studies performed on 06/29/2018, and at [facility] on 09/20/2018. The breasts are heterogeneously dense, which may obscure small masses. There is no suspicious abnormality in either breast. Impression: There is no mammographic evidence of malignancy. Annual screening mammography is recommended. OVERALL FINAL ASSESSMENT: BI-RADS CATEGORY 1: Negative. Marcelo Garcia MD IMG MAMMO PROCEDURES Final Re sult documented in this encounter Visit Diagnoses Diagnosis Encounter for screening mammogram for malignant neoplasm of breast documented in this encounter Care Teams Lobby Porter Relationship Specialty Start Date End Date Marcelo Garcia MD [address] [address] PCP - General 09/13/12 documented as of this encounter
--- OUTSIDE RECORDS SUMMARY | 2024-09-25 04:57 | XMS_ITS | Encounter Summary ---
Author Organization [facility] Address [address] [facility] [address] [place] [address] Care Team Providers Care Contract Consultant Name Role Phone Marcelo Garcia MD Primary Care Provider [phone] Reason for Visit * Reason Onset Date Comments Medical Question/Miscellaneous 10/05/2021 Encounter Details Date Type Department Care Team (Late st Contact Info) Description 10/05/2021 Telephone [facility] [address] [facility] [address] [place] [id number] Marcelo Garcia MD [address] [facility] [address] [place], [place] [id number] Medical Question/Miscellaneous Social History Tobacco Use Types Packs/Day Years [...] on file Legal Sex Female 7:02 AM BED BUG EXTERMINATOR Gender Identity Female 09/15/2021 9:12 AM BED BUG EXTERMINATOR Sexual Orientation Straight 09/15/2021 9: 12 AM BED BUG EXTERMINATOR documented as of this encounter Miscellaneous Notes * Telephone Encounter - Camryn Lamar - 10/05/2021 1:35 PM CST Medical Question/Miscellaneous Caller???s Concern: See patient message from today. Patient believes they have pink eye. They were left a message they would need to schedule an appointment. I offered them several appointments, including one this afternoon, they turned them down stating they were working all week and they children are on home school right now. States they will go to Caller???s Call back #: [phone] This is the number they called in on, patient disconnected before I could verify. Does message need to be routed?No BUG EXTERMINATOR documented in this encounter Plan of Treatment Not on file documented as of this encounter Visit Diagnoses Not on filedocumented in this encounter Care Teams Contract Consultant Relationship Specialty Start Date End Date Marcelo Garcia MD [address] [facility] [address] [place] [address] PCP - General 09/13/12 documented as of this encounter
--- OUTSIDE RECORDS SUMMARY | 2024-09-25 04:57 | XMS_ITS | Encounter Summary ---
Author Organization [facility] Healthcare Address [address] [place] [address] Care Team Providers Care Landscape Supervisor Name Role Phone Marcelo Garcia MD Primary Care Provider [phone] Encounter Details Date Type Department Care Team (Late st Contact Info) Description 09/15/2021 Patient Self-Triage [facility] HealthCare/ Physicians [address] [place] [address] [facility] Provider [address] [place] [address] Social History Tobacco Use Types Packs/Day Years [...] on file Legal Sex Female 7:02 AM BAND NAILER Gender Identity Female 09/15/2021 9:12 AM BAND NAILER Sexual Orientation Straight 09/15/2021 9: 12 AM BAND NAILER documented as of this encounter Plan of Treatment Not on file documented as of this encounter Visit Diagnoses Not on filedocumented in this encounter Care Teams Landscape Supervisor Relationship Specialty Start Date End Date Marcelo Garcia MD [address] [facility] [address] [place] [address] PCP - General 09/13/12 documented as of this encounter
--- OUTSIDE RECORDS SUMMARY | 2024-09-25 04:57 | XMS_ITS | Encounter Summary ---
Author Organization [facility] Healthcare Address [address] [place] [address] Care Team Providers Care Boilermaker Apprentice Name Role Phone Marcelo Garcia MD Primary Care Provider [phone] Encounter Details Date Type Department Care Team (Late st Contact Info) Description 09/15/2021 Patient Self-Triage [facility] HealthCare/ Physicians [address] [place] [address] [facility], [facility] Provider [address] [place] [address] Social History Tobacco Use Types Packs/Day Years [...] on file Legal Sex Female 7:02 AM SPECIAL FORCES MEDICAL SERGEANT Gender Identity Female 09/15/2021 9:12 AM SPECIAL FORCES MEDICAL SERGEANT Sexual Orientation Straight 09/15/2021 9: 12 AM SPECIAL FORCES MEDICAL SERGEANT documented as of this encounter Plan of Treatment Not on file documented as of this encounter Visit Diagnoses Not on filedocumented in this encounter Care Teams Boilermaker Apprentice Relationship Specialty Start Date End Date Marcelo Garcia MD [address] [facility] [address] [place] [address] PCP - General 09/13/12 documented as of this encounter
--- OUTSIDE RECORDS SUMMARY | 2024-09-25 04:57 | XMS_ITS | Encounter Summary ---
Author Organization [facility] Address [address] [place] [address] Care Team Providers Care Hand Straightener Name Role Phone Marcelo Garcia MD Primary Care Provider [phone] Reason for Referral * Diagnostic Imaging (Routine) - Closed Specialty Diagnoses / Procedures Referred By Zulma crowell Referred To Contact Diagnoses Abnormal mammogram Procedures Diagnostic Mammogram Bilateral W Marcelo Fowler MD [address] [place] [id number] Phone: tel: fax: [facility] Referral ID Status Reason Start Date Expiration Date Visits Re quested Visits Authorized [id number] Closed 01/06/2023 02/05/2024 1 1 Reason for Visit * Diagnostic Imaging (Routine) - Closed Specialty Diagnoses / Procedures Referred By Zulma crowell Referred To Contact Diagnoses Abnormal mammogram Procedures Diagnostic Mammogram Bilateral W Marcelo Fowler MD [address] [address] Phone: tel: fax: [facility] Referral ID Status Reason Start Date Expiration Date Visits Re quested Visits Authorized [id number] Closed 01/06/2023 02/05/2024 1 1 Encounter Details Date Type Department Care Team (Latest Contact Info) Description 03/03/2023 6:54 AM CDT - 03/03/2023 11:59 PM CDT Hospital Encounter [facility] [address] [place] [address] Marcelo Garcia MD [address] [facility] [address] [place] [address] Abnormal mammogram Discharge Disposition: Discharge to home [...] on file Legal Sex Female 7:02 AM UTILITIES OPERATOR Gender Identity Female 09/15/2021 9:12 AM UTILITIES OPERATOR Sexual Orientation Straight 09/15/2021 9: 12 AM UTILITIES OPERATOR documented as of this encounter Medications at [...] Procedure Name Priority Date/Time Associated Diagnosis Comments DIAGNOSTIC MAMMOGRAM BILATERAL W DEDRICK Schedule Routine, Read Routine (OP Routine) 03/03/2023 7:40 AM CDT Abnormal mammogram documented in this encounter Results * Diagnostic Mammogram Bilateral W Dedrick (03/03/2023 [...] unspecified documented in this encounter Care Teams Hand Straightener Relationship Specialty Start Date End Date Marcelo Garcia MD [address] [facility] [address] [place] [address] PCP - General 09/13/12 documented as of this encounter
--- OUTSIDE RECORDS SUMMARY | 2024-09-25 04:57 | XMS_ITS | Encounter Summary ---
Author Organization [facility] Address [address] [place] [address] Care Team Providers Care District Branch Manager Name Role Phone Ashly Hylton MD Primary Care Provider [phone] Encounter Details Date Type Department Care Team (Late st Contact Info) Description 11/08/2022 1:00 PM ON CAR SUPERVISOR Office Visit [facility] [address] [place] [id number] Ashly Hylton MD [address] [facility] [place], [place] [id number] Annual physical exam (Primary Dx) Social History Tobacco Use Types [...] on file Legal Sex Female 7:02 AM ON CAR SUPERVISOR Gender Identity Female 09/15/2021 9:12 AM ON CAR SUPERVISOR Sexual Orientation Straight 09/15/2021 9: 12 AM ON CAR SUPERVISOR documented as of this encounter Last Filed Vital Signs Vital Sign Reading Time Taken Comments Blood Pressure 110/72 11/08/2022 12:55 PM ON CAR SUPERVISOR Pulse 87 11/08/2022 12:55 PM ON CAR SUPERVISOR Temperature - - Respiratory Rate 20 11/08/2022 12:55 PM ON CAR SUPERVISOR Oxygen Saturation 98% 11/08/2022 12:55 PM ON CAR SUPERVISOR Inhaled Oxygen Concentration - - Weight 65.8 kg (145 lb) 11/08/2022 12:55 PM ON CAR SUPERVISOR Height 162.6 cm (5' 4 ) 11/08/2022 12:55 PM ON CAR SUPERVISOR Body Mass Index 24.89 11/08/2022 12:55 PM ON CAR SUPERVISOR documented in this encounter Ordered Prescriptions Prescription Sig Dispense Quantity Refills Last Filled Start Date End Date fluocinonide (LIDEX) 0.05 % external solution Apply topically 2 (two) times a day as needed for irritation or rash 180 mL 11 11/08/2022 4 ALPRAZolam (XANAX) 0.25 mg tablet Take 1 tablet (0.25 mg total) by mouth daily as needed for anxiety 30 tablet 5 11/08/2022 4 documented in this encounter Progress Notes * Ashly Hylton MD - 11/08/2022 1:00 PM CST Subjective/Objective Patient ID: Drea Caal is a 42 y.o. female. Chief Complaint Physical Exam HPI P.E. She is here for her annual exam. She is current on mammogram. Her last LDL was improved to 121from 145. She walks for exercise.Anxiety responds to alprazolam as needed. She complains of over one month of right elbow pain. She denies trauma. She has not tried NSAIDS. Review of Systems Constitutional: Negative for fatigue. HENT: Negative for sore throat. Respiratory: Negative for shortness of breath. Cardiovascular: Negative for chest pain. Gastrointestinal: Negative for abdominal pain. Musculoskeletal: Negative for back pain. Skin: Negative for rash. Neurological: Negative for dizziness. Psychiatric/Behavioral: The patient is nervous/anxious. BP 110/72 (BP Location: Left arm, Patient Position: Sitting) Pulse 87 Resp 20 Ht 162.6 cm (5'4 ) Wt 65.8 kg (145 lb) SpO2 98% BMI 24.89 kg/m?? Physical Exam Constitutional: Appearance: She is well-developed. HENT: Head: Normocephalic. Eyes: Pupils: Pupils are equal, round, and reactive to light. Cardiovascular: Rate and Rhythm: Normal rate and regular rhythm. Pulmonary: Effort: Pulmonary effort is normal. Breath sounds: Normal breath sounds. Musculoskeletal: Comments: Pain palpation right triceps. Skin: General: Skin is warm. Neurological: Mental Status: She is alert. Assessment/Plan Diagnoses and all orders for this visit: Annual physical exam (Z00.00) (Primary) Assessment & Plan: Reviewed diet and exercise goals. Await Annual labs. Reviewed immunization and screening status. Advised annual mammogram. Reviewed dietary modification for hyperlipidemia. Reviewed tricep strengthening exercises for tendinitis. Orders: - Comprehensive metabolic panel; Future - CBC without differential; Future - Lipid panel; Future - TSH reflex to free T4; Future - Urinalysis reflex to microscopic; Future Other orders - ALPRAZolam (XANAX) 0.25 mg tablet; Take 1 tablet (0.25 mg total) by mouth daily as needed for anxiety - fluocinonide (LIDEX) 0.05 % external solution; Apply topically 2 (two) times a day as needed for irritation or rash CAR SUPERVISOR documented in this encounter Miscellaneous Notes * Addendum Note - Ashly Hylton MD - 11/08/2022 1:00 PM CSTAddended by: ASHLY HYLTON on: 11/08/2022 01:17 PM Modules accepted: Orders CAR SUPERVISOR * Addendum Note - Alice Brunson - 11/08/2022 1:00 PM CSTAddended by: ALICE BRUNSON on: 11/08/2022 01:17 PM Modules accepted: Orders CAR SUPERVISOR * Assessment & Plan Note - Ashly Hylton MD - 11/08/2022 6:28 AM ON CAR SUPERVISOR Associated Problem(s): Annual physical exam Reviewed diet and exercise goals. Await Annual labs. Reviewed immunization and screening status. Advised annual mammogram. Reviewed dietary modification for hyperlipidemia. Reviewed tricep strengthening exercises for tendinitis. CAR SUPERVISOR CAR SUPERVISOR CAR SUPERVISOR documented in this encounter Plan of Treatment Not on file documented as of this encounter Procedures Procedure Name Priority Date/Time Associated Diagnosis Comments EGFR Routine 11/08/2022 1:18 PM ON CAR SUPERVISOR Annual physical exam THYROID FUNCTION CASCADE Routine 11/08/2022 1:18 PM ON CAR SUPERVISOR Annual physical exam URINALYSIS AND REFLEX TO MICROSCOPIC Routine 11/08/2022 1:18 PM ON CAR SUPERVISOR Annual physical exam CBC WITHOUT DIFFERENTIAL Routine 11/08/2022 1:18 PM ON CAR SUPERVISOR Annual physical exam LIPID PANEL Routine 11/08/2022 1:18 PM ON CAR SUPERVISOR Annual physical exam COMPREHENSIVE METABOLIC PANEL Routine 11/08/2022 1:18 PM ON CAR SUPERVISOR Annual physical exam documented in this encounter Results * eGFR (11/08/2022 1:18 PM ON CAR SUPERVISOR) eGFR >90 90 - 130 mL/min/1. 73 m2 [facility] Comment: Interpretive Data Reference Interval Normal ?>/= [...] of Race in Diagnosing Kidney Disease, JASN 202). The CKD-EPI equation should not be used for patients with unstable renal function and has not been validated in children and those over 70. Current interpretive data was last reviewed 2021. Blood 11/08/2022 1:18 PM ON CAR SUPERVISOR 11/08/2022 3:39 PM ON CAR SUPERVISOR us Ashly Hylton MD LAB BLOOD ORDERABLES Final Re sult [facility] Department [place] [address] * Comprehensive metabolic panel (11/08/2022 1:18 PM ON CAR SUPERVISOR) Sodium 139 135 - 145 mmol/L [facility] Potassium, pl 4.3 3.3 - 4.9 mmol/L [facility] Chloride 102 97 - 110 mmol/L [facility] CO2 28 22 - 32 mmol/L [facility] Anion gap 9 2 - 15 mmol/L [facility] BUN 16 8 - 25 mg/dL [facility] Creatinine 0.77 0.60 - 1.10 mg/dL [facility] Glucose 83 70 - 199 mg/dL [facility] Comment: Interpretive Data Fasting glucose >/= 126 [...] 2022. Calcium 9.5 8.5 - 10.3 mg/dL [facility] Bilirubin, total 0.3 0.1 - 1.2 mg/dL [facility] Protein, pl 7.3 6.5 - 8.5 g/dL [facility] Albumin 4.5 3.5 - 5.0 g/dL [facility] Alk phos 50 40 - 130 Units/L [facility] ALT 13 7 - 45 Units/L [facility] AST 19 10 - 45 Units/L [facility] Blood 11/08/2022 1:18 PM ON CAR SUPERVISOR 11/08/2022 3:26 PM ON CAR SUPERVISOR Ashly Hylton MD LAB BLOOD ORDERABLES Final Re sult Performing Organization Address City/[facility]/ZIP Co de Phone Number [facility] Department [place] [address] * CBC without differential (11/08/2022 1:18 PM ON CAR SUPERVISOR) [facility] WBC 6.4 3.8 - 9.9 K/cumm [facility] Hgb 11.9 11.9 - 15.5 g/dL [facility] Hct 35.8 35.6 - 45.5 % [facility] Plt 245 150 - 400 K/cumm [facility] MPV 9.9 9.1 - 12.3 fL [facility] RBC 4.05 3.90 - 5.20 M/cumm [facility] MCV 88.4 81.3 - 96.4 fL [facility] MCH 29.4 27.1 - 33.3 pg [facility] MCHC 33.2 32.3 - 35.7 g/dL [facility] RDW CV 11.2 11.1 - 14.9 % [facility] RDW SD 36.0 35.7 - 48.1 fL [facility] NRBC abs 0.00 0.00 - 0.01 K/cumm [facility] Blood 11/08/2022 1:18 PM ON CAR SUPERVISOR 11/08/2022 3:26 PM ON CAR SUPERVISOR Ashly Hylton MD LAB BLOOD ORDERABLES Final Re sult Performing Organization Address City/[facility]/ZIP Co de Phone Number [facility] Department [place] [address] * (ABNORMAL) Lipid panel (11/08/2022 1:18 PM ON CAR SUPERVISOR) [facility] Signature Cholesterol 213(H) 30 - 199 mg/dL [facility] Comment: Interpretive Data Ages [...] Data was last revised on 2018. Triglycerides 112 <=149 mg/dL [facility] Comment: Interpretive Data [...] Data was last revised on 2018. HDL 94 >=40 mg/dL [facility] Comment: Interpretive Data [...] was last revised on 2018. LDL, calculated 97 <=129 mg/dL [facility] Comment: Interpretive Data Ages < or [...] was last revised on 2018. Non-HDL Cholesterol 119 mg/dL [facility] Comment: Interpretive Data Ages [...] was last revised on 2018. Chol/HDL ratio 2 [facility] Blood 11/08/2022 1:18 PM ON CAR SUPERVISOR 11/08/2022 3:26 PM ON CAR SUPERVISOR Ashly Hylton MD LAB BLOOD ORDERABLES Final Re sult Performing Organization Address [facility] Co de Phone Number [facility] [place] [address] * TSH reflex to free T4 (11/08/2022 1:18 PM ON CAR SUPERVISOR) TSH 3.58 0.30 - 4.20 mcIUnit/mL [facility] Blood 11/08/2022 1:18 PM ON CAR SUPERVISOR 11/08/2022 3:26 PM ON CAR SUPERVISOR Ashly Hylton MD LAB BLOOD ORDERABLES Final Re sult Performing Organization Address [email or web address]] de Phone Number [facility] [place] [address] * Urinalysis reflex to microscopic (11/08/2022 1:18 PM ON CAR SUPERVISOR) Color, ur Straw Yellow [facility] Clarity, ur Clear Clear [facility] Specific gravity, ur 1.024 1.003 - 1.030 [facility] pH, urine 6.5 [facility] Protein, ur ql Negative Negative [facility] Glucose, ur ql Negative Negative [facility] Ketones, ur Negative Negative [facility] Bilirubin, ur Negative Negative [facility] Blood, ur Negative Negative [facility] Urobilinogen, ur <2.0 <2.0 mg/dL [facility] Nitrite, ur Negative Negative [facility] Leukocyte esterase, ur Negative Negative [facility] UA reflex comment Reflex conditions for microscopic UA not met. [facility] Urine 11/08/2022 1:18 PM ON CAR SUPERVISOR 11/08/2022 3:26 PM ON CAR SUPERVISOR Narrative [facility] - 11/08/2022 3:38 PM ON CAR SUPERVISOR ?? Urine pH is affected by diet, medications, systemic acid-base disturbances, and renal tubular function. ??pH may affect urinary stone formation. ??For example, urine pH below 6.0 may help reduce the tendency for calcium phosphate stones and pH greater than 6.0 may reduce the tendency for uric acid stone formation. Source: [employer]. Last revised 09-28-2017 us Ashly Hylton MD LAB URINE ORDERABLES Final Re sult [facility] Department [place] [address] documented in this encounter Visit Diagnoses Diagnosis Annual physical exam- Primary Routine general medical examination at a health care facility documented in this encounter Discontinued Medications Medication Sig Discontinue Reason Start Date End Da te ALPRAZolam (XANAX) 0.25 mg tablet Take 1 tablet (0.25 mg total) by mouth daily as needed for anxiety. Reorder 10/26/2018 11/08/2022 documented as of this encounter Care Teams District Branch Manager Relationship Specialty Start Date End Date Ashly Hylton MD [id number] [place] [address] PCP - General 09/13/12 documented as of this encounter
--- OUTSIDE RECORDS SUMMARY | 2024-09-25 04:57 | XMS_ITS | Encounter Summary ---
Author Organization [facility] Healthcare Address [address] [place] [address] Care Team Providers Care Community Marketing Coordinator Name Role Phone Marcelo Garcia MD Primary Care Provider Encounter Details Date Type Department Care Team (Late st Contact Info) Description 09/15/2021 Patient Self-Triage [facility]/ Physicians [address] [place] [address] [place], [facility] Provider [address] [place] [address] Social History Tobacco Use Types Packs/Day Years [...] on file Legal Sex Female 7:02 AM TAPER/FINISHER Gender Identity Female 09/15/2021 9:12 AM TAPER/FINISHER Sexual Orientation Straight 09/15/2021 9: 12 AM TAPER/FINISHER documented as of this encounter Plan of Treatment Not on file documented as of this encounter Visit Diagnoses Not on filedocumented in this encounter Care Teams Community Marketing Coordinator Relationship Specialty Start Date End Date Marcelo Garcia MD [address] [place] [address] PCP - General 09/13/12 documented as of this encounter
--- OUTSIDE RECORDS SUMMARY | 2024-09-25 04:57 | XMS_ITS | Referral Summary ---
Author Organization [facility] Address [address] [place] [phone] Care Team Providers Care Welding Machine Operator Helper Arc Name Role Phone Marcelo Garcia MD Primary Care Provider [phone] Encounters Date Type Department Care Team Description 09/20/[address] [phone] Marcelo Garcia MD 09/20/2024 10:19 AM ORE CRUSHER - 09/20/2024 11:59 PM ORE CRUSHER Hospital Encounter [facility] [address] [place] [phone] Marcelo Garcia MD Discharge Disposition: Discharge to home or self care 09/20/2024 10:00 AM ORE CRUSHER Office Visit [address] [phone] Marcelo Garcia MD Acute bronchitis, unspecified organism (Primary Dx); Chest pain, unspecified type 09/13/2024 10:00 AM ORE CRUSHER Office Visit [facility] at [address] [phone] Rosita Nuñez NP Upper respiratory infection, acute (Primary Dx); Chest pain, unspecified type from Last 3 Months Allergies Active Allergy Reactions Criticality Noted Date [...] 09/20/2024 Assessment & Plan (09/20/2024 9:56 AM ORE CRUSHER): Reviewed negative flu/covid. Symptoms are not improving. Treat with doxycycline,prednisone and albuterol. Chest pain 09/20/2024 Assessment & Plan (09/20/2024 5:07 AM ORE CRUSHER): Order chest XRAY. Physical exam 02/26/2024 Assessment [...] 06/20/2019 Assessment & Plan (10/31/2019 7:41 AM ORE CRUSHER): DDX; MSK, renal. Order UA and arrange renal US. Assessment & Plan (06/20/2019 1:12 PM CDT): Reviewed ergonomics. Reviewed XRAY. Annual physical exam 10/20/2017 Assessment & Plan (02/25/2024 8:21 AM CDT): Reviewed diet and exercise goals. Await Annual labs. Reviewed immunization and screening status. Advised annual mammogram. Reviewed dietary modification for hyperlipidemia. Assessment & Plan (11/08/2022 1:11 PM ORE CRUSHER): Reviewed diet and exercise goals. Await Annual labs. Reviewed immunization and screening status. Advised annual mammogram. Reviewed dietary modification for hyperlipidemia. Reviewed tricep strengthening exercises for tendinitis. Assessment & Plan (10/26/2021 7:08 AM ORE CRUSHER): Reviewed diet and exercise goals. Await Annual labs. Reviewed immunization and screening status. Advised a baseline mammogram. Reviewed dietary modification for hyperlipidemia. Assessment & Plan (10/26/2018 12:16 PM ORE CRUSHER): Reviewed diet and exercise goals. Await Annual labs. Reviewed immunization and screening status. Continue alprazolam as needed for anxiety. Reviewed history of hiatus hernia. Reviewed GERD diet. Assessment & Plan (10/20/2017 1:08 PM ORE CRUSHER): Reviewed diet and exercise goals. Await Annual labs. Reviewed immunization and screening status.Continue alprazolam as needed for anxiety. Arrange UGI for dysphagia. Multiple benign melanocytic nevi 11/30/2015 Rash 06/28/2012 Assessment & Plan (08/19/2021 3:16 PM ORE CRUSHER): DDX; tinea capitis and secondary staph Vs psoriasis with secondary staph. Treat tinea. Treat secondary staph with doxycycline. Mass of skin 2012 Immunizations Name Administration Dates Next Due Influenza, Quadrivalent, Spl it, Preservative Free, Intradermal 08/02/2016 Influenza, Quadrivalent, Spl it, Preservative Free, Intramuscular 06/23/2015 Influenza, Trivalent, IM (MDV) 07/20/2013 Influenza, Trivalent, Preser vative Free, Intramuscular 06/16/2014 Influenza, Unspecified 11/08/2022(Deferred: Christina ent Refused) Social History Tobacco Use Types Packs/Day Years [...] on file Legal Sex Female 7:02 AM ORE CRUSHER Gender Identity Female 09/15/2021 9:12 AM ORE CRUSHER Sexual Orientation Straight 09/15/2021 9: 12 AM ORE CRUSHER Last Filed Vital Signs Vital Sign Reading Time Taken Comments Blood Pressure 122/68 09/20/2024 9:46 AM ORE CRUSHER Pulse 119 09/20/2024 9:46 AM ORE CRUSHER Temperature 36.1 ??C (97 ??F) 09/20/2024 9:46 AM ORE CRUSHER Respiratory Rate 18 09/20/2024 9:46 AM ORE CRUSHER Oxygen Saturation 93% 09/20/2024 9:46 AM ORE CRUSHER Inhaled Oxygen Concentration - - Weight 63.7 kg (140 lb 6.4 oz) 09/20/2024 9:46 A M ORE CRUSHER Height 162.6 cm (5' 4 ) 09/20/2024 9:46 AM ORE CRUSHER Body Mass Index 24.1 09/20/2024 9:46 AM ORE CRUSHER Plan of Treatment Not on file Procedures Procedure Name Priority Date/Time Associated Diagnosis Comments XR CHEST PA LATERAL 2 VIEWS Schedule Routine, Read Routine (OP Routine) 09/20/2024 10:32 AM ORE CRUSHER Chest pain, unspecified type POC INFLUENZA A/B, COVID-19 ANTIGEN Routine 09/13/2024 10:31 AM ORE CRUSHER Upper respiratory infection, acute DIAGNOSTIC MAMMOGRAM BILATERAL W DEDRICK Schedule Routine, Read Routine (OP Routine) 03/03/2023 7:40 AM CDT Abnormal mammogram from Last 3 Months or Most Recently Relevant to Health Maintenance Results * XR Chest Pa Lateral 2 Views (09/20/2024 10:32 AM ORE CRUSHER) Anatomical Region Laterality Modality Body, Chest N/A Computed Radiogr aphy 09/20/2024 1:02 PM ORE CRUSHER Impressions 09/20/2024 1:35 PM ORE CRUSHER No comparison available: There is focal consolidation [...] Sarah Maki M.D. Narrative 09/20/2024 1:35 PM ORE CRUSHER EXAMINATION: 2 view chest radiograph Procedure Note [...] Influenza A/B, COVID-19 antigen (09/13/2024 10:31 AM ORE CRUSHER) Influenza A Ag, POC Negative Negative [facility] Influenza B Ag, POC Negative Negative [facility] COVID-19 Ag POC Presumptive Negative Presumptive Negative, Invalid [facility] 09/13/2024 10:3 1 AM ORE CRUSHER us Rosita Nuñez NP POINT OF CARE TEST ORDERABLES Final Result [facility] [id number], [facility] * Diagnostic Mammogram Bilateral W Dedrick (03/03/2023 [...] ACC CHOICE OOS BLUE ACC CHOICE OOS ANTHEM ACCESS CHOICE Care Teams Welding Machine Operator Helper Arc Relationship Specialty Start Date End Date Marcelo Garcia MD [address] [facility] [facility] [address] [facility] [place] [address] PCP - General 09/13/12
--- OUTSIDE RECORDS SUMMARY | 2024-09-25 04:58 | XMS_ITS | Encounter Summary ---
Author Organization [facility] Facility Care Team Providers Care Community Relations Manager Name Role Phone Marcelo Garcia MD Primary Care Provider Encounter Details Date Type Department Care Team (Late st Contact Info) Description 08/02/2016 9:26 AM SHEET METAL DUCT INSTALLER HELPER - 08/02/2016 11:59 PM SHEET METAL DUCT INSTALLER HELPER Hospital Encounter [facility] Barbara, Abena Granger MD [facility] [facility] [place] [address] Low back pain; Cervicalgia Social History Tobacco Use Types Packs/Day Years Used Date Smoking Tobacco: Former Alcohol Use Standard Drinks/Week Comments No 0 (1 standard drink = 0.6 oz pur e alcohol) Comments Unknown Sex and Gender Information Value Date Recorded Sex Assigned at Not on file Legal Sex Female 7:02 AM SHEET METAL DUCT INSTALLER HELPER Gender Identity Female 09/15/2021 9:12 AM SHEET METAL DUCT INSTALLER HELPER Sexual Orientation Straight 09/15/2021 9: 12 AM SHEET METAL DUCT INSTALLER HELPER documented as of this encounter Medications at Time of Discharge ALPRAZolam (XANAX) 0.25 mg tablet Take one by mouth two times per day as needed 45 3 04/20/2009 10/20/2017 documented as of this encounter Plan of Treatment Not on file documented as of this encounter Procedures Procedure Name Priority Date/Time Associated Diagnosis Comments XR SPINE LUMBAR ROUTINE Routine 08/02/2016 9:47 AM SHEET METAL DUCT INSTALLER HELPER XR SPINE CERVICAL COMPLETE 4 OR 5 VW Routine 08/02/2016 9:47 AM SHEET METAL DUCT INSTALLER HELPER documented in this encounter Results * XR Lumbar Spine Routine (08/02/2016 9:47 AM SHEET METAL DUCT INSTALLER HELPER) Anatomical Region Laterality Modality L-spine N/A Radiographic Kira ging 08/02/2016 9:47 AM SHEET METAL DUCT INSTALLER HELPER Narrative 08/02/2016 9:55 AM SHEET METAL DUCT INSTALLER HELPER AMANDA MEDRANO M.D. FINAL REPORT ACC# ??Date Time ??Exam [id number] Aug 02, 2016 09:47:00 [id number] Spine Lumbar min 4 views [id number] Aug 02, 2016 09:47:00 [id number] Spine Cervical 4 or 5 vws EXAMINATION: ? 1. Cervical spine 4 or 5 views 2. Lumbar spine minimum 4 views HISTORY: Cervical and lumbar pain FINDINGS: ?? AP, lateral, flexion, and extension views of the cervical spine are performed without comparison. There is normal alignment of the cervical spine. The vertebral body heights and intervertebral disc spaces are normal. There is normal motion in flexion and extension. No prevertebral soft tissue swelling or bony central canal stenosis. AP, lateral, flexion, and extension views of the lumbar spine are performed without comparison. There is normal alignment of the lumbar spine. The vertebral body heights and intervertebral disc spaces are normal. There is normal motion in flexion and extension. IMPRESSION: ?? Normal cervical and lumbar spine radiographs. Requested By: Dictated By: ?? AMANDA MEDRANO M.D. ??on Aug 02 2016 ??9:55A This document has been electronically signed by: AMANDA MEDRANO M.D. on Aug 02 2016 ??9:55A [id number] Procedure Note Provider, MD Sarah - 01/23/2017 AMANDA MEDRANO M.D. FINAL REPORT ACC# Date Time Exam [id number] Aug 02, 2016 09:47:00 [id number] Spine Lumbar min 4 views [id number] Aug 02, 2016 09:47:00 15512 Spine Cervical 4 or 5 vws EXAMINATION: 1. Cervical spine 4 or 5 views 2. Lumbar spine minimum 4 views HISTORY: Cervical and lumbar pain FINDINGS: AP, lateral, flexion, and extension views of the cervical spine are performed without comparison. There is normal alignment of the cervical spine. The vertebral body heights and intervertebral disc spaces are normal. There is normal motion in flexion and extension. No prevertebral soft tissue swelling or bony central canal stenosis. AP, lateral, flexion, and extension views of the lumbar spine are performed without comparison. There is normal alignment of the lumbar spine. The vertebral body heights and intervertebral disc spaces are normal. There is normal motion in flexion and extension. IMPRESSION: Normal cervical and lumbar spine radiographs. Requested By: Dictated By: AMANDA MEDRANO M.D. on Aug 02 2016 9:55A This document has been electronically signed by: AMANDA MEDRANO M.D. on Aug 02 2016 9:55A [id number] us Historical Provider IMGoldy XR PROCEDURES Final R esult * XR Spine Cervical Complete 4 or 5 Views (08/02/2016 9:47 AM SHEET METAL DUCT INSTALLER HELPER) Anatomical Region Laterality Modality Spine N/A Radiographic Kira ging 08/02/2016 9:47 AM SHEET METAL DUCT INSTALLER HELPER Narrative 08/02/2016 9:55 AM SHEET METAL DUCT INSTALLER HELPER AMANDA MEDRANO M.D. FINAL REPORT ACC# ??Date Time ??Exam [id number] Aug 02, 2016 09:47:00 [id number] Spine Lumbar min 4 views [id number] Aug 02, 2016 09:47:00 [id number] Spine Cervical 4 or 5 vws EXAMINATION: ? 1. Cervical spine 4 or 5 views 2. Lumbar spine minimum 4 views HISTORY: Cervical and lumbar pain FINDINGS: ?? AP, lateral, flexion, and extension views of the cervical spine are performed without comparison. There is normal alignment of the cervical spine. The vertebral body heights and intervertebral disc spaces are normal. There is normal motion in flexion and extension. No prevertebral soft tissue swelling or bony central canal stenosis. AP, lateral, flexion, and extension views of the lumbar spine are performed without comparison. There is normal alignment of the lumbar spine. The vertebral body heights and intervertebral disc spaces are normal. There is normal motion in flexion and extension. IMPRESSION: ?? Normal cervical and lumbar spine radiographs. Requested By: Dictated By: ?? AMANDA MEDRANO M.D. ??on Aug 02 2016 ??9:55A This document has been electronically signed by: AMANDA MEDRANO M.D. on Aug 02 2016 ??9:55A [id number] Procedure Note Provider, MD Sarah - 01/23/2017 AMANDA MEDRANO M.D. FINAL REPORT ACC# Date Time Exam [id number] Aug 02, 2016 09:47:00 [id number] Spine Lumbar min 4 views [id number] Aug 02, 2016 09:47:00 [id number] Spine Cervical 4 or 5 vws EXAMINATION: 1. Cervical spine 4 or 5 views 2. Lumbar spine minimum 4 views HISTORY: Cervical and lumbar pain FINDINGS: AP, lateral, flexion, and extension views of the cervical spine are performed without comparison. There is normal alignment of the cervical spine. The vertebral body heights and intervertebral disc spaces are normal. There is normal motion in flexion and extension. No prevertebral soft tissue swelling or bony central canal stenosis. AP, lateral, flexion, and extension views of the lumbar spine are performed without comparison. There is normal alignment of the lumbar spine. The vertebral body heights and intervertebral disc spaces are normal. There is normal motion in flexion and extension. IMPRESSION: Normal cervical and lumbar spine radiographs. Requested By: Dictated By: AMANDA MEDRANO M.D. on Aug 02 2016 9:55A This document has been electronically signed by: AMANDA MEDRANO M.D. on Aug 02 2016 9:55A [id number] Historical Provider IMGoldy XR PROCEDURES Final R esult documented in this encounter Visit Diagnoses Diagnosis Low back pain Lumbago Cervicalgia documented in this encounter Care Teams Community Relations Manager Relationship Specialty Start Date End Date Marcelo Garcia MD [address] [facility] [address] [place] [address] PCP - General 09/13/12 documented as of this encounter
--- OUTSIDE RECORDS SUMMARY | 2024-09-25 04:58 | XMS_ITS | Encounter Summary ---
Author Organization [facility] Care Team Providers Care Beam House Inspector Name Role Phone Marcelo Garcia MD Primary Care Provider [phone] Encounter Details Date Type Department Care Team (Late st Contact Info) Description 06/16/2014 - 06/16/2014 11:59 PM CDT Hospital Encounter [facility] Marcelo Garcia MD [address] [address] Chest pain Social History Tobacco Use Types Packs/Day Years Used Date Smoking Tobacco: Former Alcohol Use Standard Drinks/Week Comments No 0 (1 standard drink = 0.6 oz pur e alcohol) Comments Unknown Sex and Gender Information Value Date Recorded Sex Assigned at Not on file Legal Sex Female 7:02 AM LABOR SERVICE REPRESENTATIVE Gender Identity Female 09/15/2021 9:12 AM LABOR SERVICE REPRESENTATIVE Sexual Orientation Straight 09/15/2021 9: 12 AM LABOR SERVICE REPRESENTATIVE documented as of this encounter Medications at Time of Discharge ALPRAZolam (XANAX) 0.25 mg tablet Take one by mouth two times per day as needed 45 3 04/20/2009 10/20/2017 documented as of this encounter Plan of Treatment Not on file documented as of this encounter Procedures Procedure Name Priority Date/Time Associated Diagnosis Comments CHEST RADIOGRAPHY, FRONTAL (AP), LATERAL Routine 06/16/2014 9:48 AM CDT documented in this encounter Results * CHEST RADIOGRAPHY, FRONTAL (AP), LATERAL (06/16/2014 9:48 AM CDT) Anatomical Region Laterality Modality N/A Radiographic Kira ging 06/16/2014 9:48 AM CDT Narrative 06/16/2014 1:56 PM CDT YUAN ALVAREZ M.D. PAOLA SALGADO M.D. FINAL REPORT The radiology attending physician has personally reviewed this study, and has reviewed and/or edited this written report and agrees with it. ACC# ??Date Time ??Exam [id number] Jun 16, 2014 09:48:00 01120 Chest 2 views Frontl & Lat EXAMINATION: ?? Chest 2 views IMPRESSION: ? Frontal and lateral chest radiograph are compared to previous examination from 01/09/2013. Lungs are clear. No pneumothorax, pleural effusion, or pulmonary edema. Cardiomediastinal silhouette is within normal limits. Requested By: Dictated By: ?? PAOLA SALGADO M.D. ??on Jun 16 2014 10:57A This document has been electronically signed by: YUAN ALVAREZ M.D. on Jun 16 2014 ??1:55P [id number] Procedure Note Provider, Sarah, - 01/15/2017 YUAN ALVAREZ M.D. PAOLA SALGADO M.D. FINAL REPORT The radiology attending physician has personally reviewed this study, and has reviewed and/or edited this written report and agrees with it. ACC# Date Time Exam [id number] Jun 16, 2014 09:48:00 [id number] Chest 2 views Frontl & Lat EXAMINATION: Chest 2 views IMPRESSION: Frontal and lateral chest radiograph are compared to previous examination from 01/09/2013. Lungs are clear. No pneumothorax, pleural effusion, or pulmonary edema. Cardiomediastinal silhouette is within normal limits. Requested By: Dictated By: PAOLA SALGADO M.D. on Jun 16 2014 10:57A This document has been electronically signed by: YUAN ALVAREZ M.D. on Jun 16 2014 1:55P [id number] us Historical Provider MD MEJIA XR PROCEDURES Final R esult documented in this encounter Visit Diagnoses Diagnosis Chest pain Unspecified chest pain documented in this encounter Care Teams Beam House Inspector Relationship Specialty Start Date End Date Marcelo Garcia MD [address] [address] PCP - General 09/13/12 documented as of this encounter
--- OUTSIDE RECORDS SUMMARY | 2024-09-25 04:58 | XMS_ITS | Encounter Summary ---
Author Organization [facility] Address [address] [place] [address] Care Team Providers Care Manager Union Name Role Phone Marcelo Garcia MD Primary Care Provider [phone] Encounter Details Date Type Department Care Team (Late st Contact Info) Description 10/26/2017 [place] Only [facility] [facility] [address] [place] [id number] Scanning, Provider Social History Tobacco Use Types Packs/Day Years Used Date Smoking Tobacco: Former Alcohol Use Standard Drinks/Week Comments Yes 0 (1 standard drink = 0.6 oz pur e alcohol) PHQ-2 Answer Date Recorded PHQ-2 Score 0 05/10/2019 Comments Unknown Sex and Gender Information Value Date Recorded Sex Assigned at Not on file Legal Sex Female 7:02 AM MINI LAB OPERATOR Gender Identity Female 09/15/2021 9:12 AM MINI LAB OPERATOR Sexual Orientation Straight 09/15/2021 9: 12 AM MINI LAB OPERATOR documented as of this encounter Plan of Treatment Not on file documented as of this encounter Procedures Procedure Name Priority Date/Time Associated Diagnosis Comments SCAN - RADIOLOGY/IMAGING 10/26/2017 11:37 AM MINI LAB OPERATOR documented in this encounter Results * SCAN - RADIOLOGY/IMAGING (10/26/2017 11:37 AM MINI LAB OPERATOR) Anatomical Region Laterality Modality Other us Provider Scanning Final Result documented in this encounter Visit Diagnoses Not on filedocumented in this encounter Care Teams Manager Union Relationship Specialty Start Date End Date Marcelo Garcia MD [address] [facility] [address] [place] [address] PCP - General 09/13/12 documented as of this encounter
--- OUTSIDE RECORDS SUMMARY | 2024-09-25 04:58 | XMS_ITS | Encounter Summary ---
Author Organization [facility] Healthcare Address [address] [place] [address] Care Team Providers Care Zigzag Elastic Attacher Name Role Phone Ashly Hylton MD Primary Care Provider [phone] Encounter Details Date Type Department Care Team (Latest Contact Info) Description 10/26/2017 10:02 AM MOLD UNLOADER - 10/26/2017 11:59 PM MOLD UNLOADER Hospital Encounter [facility] [phone] Ashly Hylton MD [address] [address] Discharge Disposition: Discharge to home or self care Social History Tobacco Use Types Packs/Day Years Used Date Smoking Tobacco: Former Alcohol Use Standard Drinks/Week Comments Yes 0 (1 standard drink = 0.6 oz pur e alcohol) Comments Unknown Sex and Gender Information Value Date Recorded Sex Assigned at Not on file Legal Sex Female 7:02 AM MOLD UNLOADER Gender Identity Female 09/15/2021 9:12 AM MOLD UNLOADER Sexual Orientation Straight 09/15/2021 9: 12 AM MOLD UNLOADER documented as of this encounter Medications at Time of Discharge ALPRAZolam (XANAX) 0.25 mg tablet Take 1 tablet (0.25 mg total) by mouth daily as needed for anxiety. 30 tablet 5 10/20/2017 10/26/2018 documented as of this encounter Discharge Disposition Disposition Code Departure Means Destination Discharge to home or self care documented in this encounter Progress Notes * Ashly Hylton MD - 10/26/2017 11:59 PM CST Call with swallow study does not show obstruction. Good news. UNLOADER documented in this encounter Plan of Treatment Not on file documented as of this encounter Procedures Procedure Name Priority Date/Time Associated Diagnosis Comments FL ESOPHAGRAM, SINGLE CONTRAST Routine 10/26/2017 4:52 PM MOLD UNLOADER documented in this encounter Results * FL Esophagram (10/26/2017 4:52 PM MOLD UNLOADER) Anatomical Region Laterality Modality Body N/A Radiographic Kira ging 10/26/2017 4:52 PM MOLD UNLOADER Narrative 10/26/2017 5:33 PM MOLD UNLOADER Bruno RIVERA M.D. FINAL REPORT The radiology attending physician has personally reviewed this study, and has reviewed and/or edited this written report and agrees with it. ACC# ??Date Time ??Exam [id number] Oct 26, 2017 10:52:00 [id number] Barium Swallow EXAMINATION: ??BARIUM ESOPHAGRAM HISTORY: Dysphagia TECHNIQUE: The patient was given barium as well as effervescent crystals to drink, and multiple fluoroscopic and conventional overhead radiographs were obtained. FINDINGS: The patient's swallowing function is normal. The esophageal mucosa is normal without fold abnormalities or masses. The esophageal motility is normal. There is passage of contrast through a normal gastroesophageal junction. There is a small hiatal hernia. The visualized portions of the stomach are normal. No reflux was elicited with provocative maneuvers. IMPRESSION: ??1. ??Small hiatal hernia with no gastroesophageal reflux. Electronically signed by: Nick Leal M.D. Requested By: Ashly Hylton ??Bruno ? Dictated By: ?? SAIMA ROWAN M.D. ??on Oct ??2017 11:25A This document has been electronically signed by: NICK LEAL M.D. on Oct?2017 11:31A [id number] RIVERA M.D. FINAL REPORT The radiology attending physician has personally reviewed this study, and has reviewed and/or edited this written report and agrees with it. Attending: ??RADHA, ??ASHLY Requesting: ??Radha, ??Ashly Requesting Fax: ?? Attending Fax: ?? Attending ID: ??[id number] Requesting ID: ??[id number] Report To 1 ID: ??[id number] ? Report To 1 Name: ??, ?? Report To 1 FAX: ?? NextGen Order #: ?? Procedure Note Miscellaneous, Not In File - 10/26/2017 NICK LEAL M.D. SAIMA ROWAN M.D. FINAL REPORT The radiology attending physician has personally reviewed this study, and has reviewed and/or edited this written report and agrees with it. ACC# Date Time Exam [id number] Oct 26, 2017 10:52:00 [id number] Barium Swallow EXAMINATION: BARIUM ESOPHAGRAM HISTORY: Dysphagia TECHNIQUE: The patient was given barium as well as effervescent crystals to drink, and multiple fluoroscopic and conventional overhead radiographs were obtained. FINDINGS: The patient's swallowing function is normal. The esophageal mucosa is normal without fold abnormalities or masses. The esophageal motility is normal. There is passage of contrast through a normal gastroesophageal junction. There is a small hiatal hernia. The visualized portions of the stomach are normal. No reflux was elicited with provocative maneuvers. IMPRESSION: 1. Small hiatal hernia with no gastroesophageal reflux. Electronically signed by: Nick Leal M.D. Requested By: Ashly Hylton M.D. Dictated By: SAIMA ROWAN M.D. on Oct 26 2017 11:25A This document has been electronically signed by: NICK LEAL M.D. on Oct 26 2017 11:31A [id number] RIVERA M.D. FINAL REPORT The radiology attending physician has personally reviewed this study, and has reviewed and/or edited this written report and agrees with it. Attending: ASHLY HYLTON Requesting: Ashly Hylton Requesting Fax: Attending Fax: Attending ID: [id number] Requesting ID: [id number] Report To 1 ID: [id number] Report To 1 Name: , Report To 1 FAX: NextGen Order #: Ashly Hylton MD IMG FLUOROSCOPY PROCEDURES Fi nal Result documented in this encounter Visit Diagnoses Not on filedocumented in this encounter Care Teams Zigzag Elastic Attacher Relationship Specialty Start Date End Date Ashly Hylton MD [address] [facility] [address] [place] [address] PCP - General 09/13/12 documented as of this encounter
--- OUTSIDE RECORDS SUMMARY | 2024-09-25 04:58 | XMS_ITS | Encounter Summary ---
Author Organization [facility] Address [address] [facility] [address] [place] [address] Phone Care Team Providers Care Security Flex Utility Officer Name Role Phone Marcelo Garcia MD Primary Care Provider [phone] Reason for Referral * Diagnostic Imaging (Routine) - Closed Specialty Diagnoses / Procedures Referred By Contac t Referred To Contact Diagnoses Breast lump in female Procedures US Breast Bilateral Limited US Breast Left Limited Mariella Batista MD PhD Phone: tel: fax: [address] [address] Referral ID Status Reason Start Date Expiration Date Visits Re quested Visits Authorized [id number] Closed 08/21/2018 03/01/2020 1 1 ICAL MANAGER HOME CARE Encounter Details Date Type Department Care Team (Late st Contact Info) Description 08/21/2018 Orders Only [facility] Surgery [address] [facility] Advanced Medicine 5th [place] [address] [place] [address] Mariella Batista MD PhD [address] [facility] [id number] [place], [place] [id number] Breast lump in female (Primary Dx) Social History Tobacco Use Types Packs/Day Years Used Date Smoking Tobacco: Former Alcohol Use Standard Drinks/Week Comments Yes 0 (1 standard drink = 0.6 oz pur e alcohol) Comments Unknown Sex and Gender Information Value Date Recorded Sex Assigned at Not on file Legal Sex Female 7:02 AM CLINICAL MANAGER HOME CARE Gender Identity Female 09/15/2021 9:12 AM CLINICAL MANAGER HOME CARE Sexual Orientation Straight 09/15/2021 9: 12 AM CLINICAL MANAGER HOME CARE documented as of this encounter Plan of Treatment Scheduled Orders Name Type Priority Associated Diagnoses Orde r Schedule Breast Imaging Outside Consult Imaging Routine Breast lump in female Expected: 09/20/2018, Expires: 08/21/2019 documented as of this encounter Results * US Breast Bilateral Limited (09/20/2018 2:49 PM CLINICAL MANAGER HOME CARE) Anatomical Region Laterality Modality Breast Bilateral Ultrasound 09/20/2018 2:57 PM CLINICAL MANAGER HOME CARE Impressions 09/20/2018 4:35 PM CLINICAL MANAGER HOME CARE 1. ??Questioned asymmetry in the subareolar RIGHT breast corresponds with normal overlapping dense breast tissue. 2. ??No suspicious abnormalities at the palpable areas of concern in the inner LEFT breast on mammogram or targeted ultrasound. 3. ??Findings and recommendations were discussed with the patient. OVERALL FINAL ASSESSMENT: BI-RADS Category 1: Negative. Continued clinical follow-up is recommended. ??Unless earlier screening is clinically indicated, recommend annual screening mammography beginning at 40 years of age. Dictated by: Moses Perez M.D. Electronically signed by: Chema Molina M.D. Narrative 09/20/2018 4:35 PM CLINICAL MANAGER HOME CARE EXAMINATION: BILATERAL DIGITAL DIAGNOSTIC MAMMOGRAM INCLUDING CAD AND BILATERAL DIGITAL BREAST TOMOSYNTHESIS; BILATERAL BREAST SONOGRAM HISTORY: 38-year-old woman who initially presented to an outside facility for palpable abnormality in the inner LEFT breast. ??Consult of outside imaging was performed and an area of questioned asymmetry in the subareolar RIGHT breast was identified for which additional evaluation was recommended. ??The patient reports a persistent knot in the inner LEFT breast present since May 2018 with associated pressure and bruise-like pain. ??A physician detected palpable abnormality just superior to the patient detected palpable abnormality in the inner LEFT breast was also identified on today's clinical exam. COMPARISON: Prior bilateral diagnostic mammogram dated 06/29/2018. TECHNIQUE: ?? Full field digital mammographic views of BOTH breasts were performed, including computer aided detection (CAD) and BILATERAL digital breast tomosynthesis (DBT). ??Directed ultrasound evaluation of BOTH breasts was performed by a trained wet and dry sugar bin operator and Drs. Perez and Jesse. BREAST PARENCHYMAL COMPOSITION: The breasts are heterogenously dense, which may obscure small masses. MAMMOGRAM FINDINGS: The questioned asymmetry in the subareolar RIGHT breast partially effaces on spot compression views and is most consistent with overlap dense breast tissue. ??There are no suspicious masses, microcalcifications, or areas of architectural distortion in the RIGHT breast. Triangular skin markers indicate BOTH the patient and the physician detected palpable areas of concern in the inner LEFT breast. ??There are no suspicious masses, microcalcifications, or areas of architectural distortion in the LEFT breast. SONOGRAM FINDINGS: Targeted sonographic evaluation of the entire subareolar RIGHT breast demonstrates normal dense fibroglandular breast tissue without suspicious solid or cystic mass suggestive of malignancy Targeted sonographic evaluation of the physician detected palpable area of concern at 9:00, 6 cm from the nipple in the LEFT breast and the patient detected palpable area of concern at 8:00, 6 cm from the nipple in the LEFT breast demonstrates normal fibroglandular breast tissue without suspicious solid or cystic mass suggestive of malignancy. ??Targeted physical examination by Dr. Molina demonstrates no definite suspicious palpable finding in this region. Procedure Note Chema Molina MD - 09/20/2018 EXAMINATION: BILATERAL DIGITAL DIAGNOSTIC MAMMOGRAM INCLUDING CAD AND BILATERAL DIGITAL BREAST TOMOSYNTHESIS; BILATERAL BREAST SONOGRAM HISTORY: 38-year-old woman who initially presented to an outside facility for palpable abnormality in the inner LEFT breast. Consult of outside imaging was performed and an area of questioned asymmetry in the subareolar RIGHT breast was identified for which additional evaluation was recommended. The patient reports a persistent knot in the inner LEFT breast present since May 2018 with associated pressure and bruise-like pain. A physician detected palpable abnormality just superior to the patient detected palpable abnormality in the inner LEFT breast was also identified on today's clinical exam. COMPARISON: Prior bilateral diagnostic mammogram dated 06/29/2018. TECHNIQUE: Full field digital mammographic views of BOTH breasts were performed, including computer aided detection (CAD) and BILATERAL digital breast tomosynthesis (DBT). Directed ultrasound evaluation of BOTH breasts was performed by a trained wet and dry sugar bin operator and Drs. Perez and Jesse. BREAST PARENCHYMAL COMPOSITION: The breasts are heterogenously dense, which may obscure small masses. MAMMOGRAM FINDINGS: The questioned asymmetry in the subareolar RIGHT breast partially effaces on spot compression views and is most consistent with overlap dense breast tissue. There are no suspicious masses, microcalcifications, or areas of architectural distortion in the RIGHT breast. Triangular skin markers indicate BOTH the patient and the physician detected palpable areas of concern in the inner LEFT breast. There are no suspicious masses, microcalcifications, or areas of architectural distortion in the LEFT breast. SONOGRAM FINDINGS: Targeted sonographic evaluation of the entire subareolar RIGHT breast demonstrates normal dense fibroglandular breast tissue without suspicious solid or cystic mass suggestive of malignancy Targeted sonographic evaluation of the physician detected palpable area of concern at 9:00, 6 cm from the nipple in the LEFT breast and the patient detected palpable area of concern at 8:00, 6 cm from the nipple in the LEFT breast demonstrates normal fibroglandular breast tissue without suspicious solid or cystic mass suggestive of malignancy. Targeted physical examination by Dr. Molina demonstrates no definite suspicious palpable finding in this region. IMPRESSION: 1. Questioned asymmetry in the subareolar RIGHT breast corresponds with normal overlapping dense breast tissue. 2. No suspicious abnormalities at the palpable areas of concern in the inner LEFT breast on mammogram or targeted ultrasound. 3. Findings and recommendations were discussed with the patient. OVERALL FINAL ASSESSMENT: BI-RADS Category 1: Negative. Continued clinical follow-up is recommended. Unless earlier screening is clinically indicated, recommend annual screening mammography beginning at 40 years of age. Dictated by: Moses Perez M.D. Electronically signed by: Chema Molina M.D. Mariella Batista MD PhD IMG MAMMO PROCEDURES Final Result documented in this encounter Visit Diagnoses Diagnosis Breast lump in female- Primary Lump or mass in breast documented in this encounter Care Teams Security Flex Utility Officer Relationship Specialty Start Date End Date Marcelo Garcia MD [address] [facility] [address] [place] [address] PCP - General 09/13/12 documented as of this encounter
--- OUTSIDE RECORDS SUMMARY | 2024-09-25 04:58 | XMS_ITS | Encounter Summary ---
Author Organization [facility] Care Team Providers Care Mophead Sewer Name Role Phone Marcelo Garcia MD Primary Care Provider Encounter Details Date Type Department Care Team (Late st Contact Info) Description 04/20/2009 - 04/20/2009 11:59 PM CDT Hospital Encounter [facility] Marcelo Garcia MD [address] [facility] [address], [place] [address] Routine general medical examination at a health care facility Social History Tobacco Use Types Packs/Day Years Used Date Smoking Tobacco: Never Assessed Comments Unknown Sex and Gender Information Value Date Recorded Sex Assigned at Not on file Legal Sex Female 7:02 AM RETARDER OPERATOR Gender Identity Female 09/15/2021 9:12 AM RETARDER OPERATOR Sexual Orientation Straight 09/15/2021 9: 12 AM RETARDER OPERATOR documented as of this encounter Medications at Time of Discharge ALPRAZolam (XANAX) 0.25 mg tablet Take one by mouth two times per day as needed 45 3 04/20/2009 10/20/2017 documented as of this encounter Plan of Treatment Not on file documented as of this encounter Visit Diagnoses Diagnosis Routine general medical examination at a health care facility documented in this encounter Care Teams Mophead Sewer Relationship Specialty Start Date End Date Marcelo Garcia MD [address] [place], [place] [id number] PCP - General 12/14/06 10/31/11 documented as of this encounter
--- OUTSIDE RECORDS SUMMARY | 2024-09-25 04:58 | XMS_ITS | Encounter Summary ---
Author Organization [facility] Address [address] [place] [address] Care Team Providers Care Lead Customer Service Representative Name Role Phone Marcelo Garcia MD Primary Care Provider [phone] Encounter Details Date Type Department Care Team (Latest Contact Info) Description 08/27/2018 3:22 PM VOLUNTEER SERVICES DIRECTOR - 08/27/2018 5:49 PM VOLUNTEER SERVICES DIRECTOR Hospital Encounter [facility] [address] [place] [id number] Discharge Disposition: Discharge to home or self care Social History Tobacco Use Types Packs/Day Years Used Date Smoking Tobacco: Former Alcohol Use Standard Drinks/Week Comments Yes 0 (1 standard drink = 0.6 oz pur e alcohol) Comments Unknown Sex and Gender Information Value Date Recorded Sex Assigned at Not on file Legal Sex Female 7:02 AM VOLUNTEER SERVICES DIRECTOR Gender Identity Female 09/15/2021 9:12 AM VOLUNTEER SERVICES DIRECTOR Sexual Orientation Straight 09/15/2021 9: 12 AM VOLUNTEER SERVICES DIRECTOR documented as of this encounter Medications at [...] Procedure Name Priority Date/Time Associated Diagnosis Comments BREAST IMAGING OUTSIDE REFERENCE Routine 08/27/2018 3:22 PM VOLUNTEER SERVICES DIRECTOR Breast lump in female documented in this encounter Results * Breast Imaging Outside Reference (08/27/2018 3:22 PM VOLUNTEER SERVICES DIRECTOR) Impressions [facility] - 08/27/2018 3:22 PM VOLUNTEER SERVICES DIRECTOR These images are for Reference purposes only and have not been reviewed by [facility]. ??There will be no report generated by a [facility] Radiologist. Narrative [facility] - 08/27/2018 3:22 PM VOLUNTEER SERVICES DIRECTOR EXAMINATION: ??Images For Reference Purposes Only us Mariella Batista MD PhD IMG MAMMO PROCEDURES Final Result [facility] documented in this encounter Visit Diagnoses Not on filedocumented in this encounter Care Teams Lead Customer Service Representative Relationship Specialty Start Date End Date Marcelo Garcia MD [address] [facility] [address], [place] [address] PCP - General 09/13/12 documented as of this encounter
--- OUTSIDE RECORDS SUMMARY | 2024-09-25 04:58 | XMS_ITS | Encounter Summary ---
Author Organization [facility] Address [address] [facility] [address] [place] [address] Care Team Providers Care Signal Constructor Name Role Phone Marcelo Garcia MD Primary Care Provider [phone] Reason for Visit * Reason Comments Follow-up Encounter Details Date Type Department Care Team (Late st Contact Info) Description 10/20/2017 1:00 PM ATMOSPHERIC DRIER TENDER Office Visit [facility] [address] [facility] [address] [place] [address] Marcelo Garcia MD [address] [facility] [address] [place], [place] [phone] Annual physical exam (Primary Dx); Dysphagia, unspecified type; BMI 22.0-22.9, adult Social History Tobacco Use Types Packs/Day Years Used Date Smoking Tobacco: Former Alcohol Use Standard Drinks/Week Comments Yes 0 (1 standard drink = 0.6 oz pur e alcohol) Comments Unknown Sex and Gender Information Value Date Recorded Sex Assigned at Not on file Legal Sex Female 7:02 AM ATMOSPHERIC DRIER TENDER Gender Identity Female 09/15/2021 9:12 AM ATMOSPHERIC DRIER TENDER Sexual Orientation Straight 09/15/2021 9: 12 AM ATMOSPHERIC DRIER TENDER documented as of this encounter Last Filed Vital Signs Vital Sign Reading Time Taken Comments Blood Pressure 112/60 10/20/2017 12:47 PM ATMOSPHERIC DRIER TENDER Pulse 74 10/20/2017 12:47 PM ATMOSPHERIC DRIER TENDER Temperature 36.8 ??C (98.2 ??F) 10/20/2017 12:[address] Respiratory Rate 14 10/20/2017 12:47 PM ATMOSPHERIC DRIER TENDER Oxygen Saturation 98% 10/20/2017 12:47 PM ATMOSPHERIC DRIER TENDER Inhaled Oxygen Concentration - - Weight 60.8 kg (134 lb) 10/20/2017 12:47 PM ATMOSPHERIC DRIER TENDER Height 165.1 cm (5' 5 ) 10/20/2017 12:47 PM ATMOSPHERIC DRIER TENDER Body Mass Index 22.3 10/20/2017 12:47 PM ATMOSPHERIC DRIER TENDER documented in this encounter Ordered Prescriptions Prescription Sig Dispense Quantity Refills Last Filled Start Date End Date ALPRAZolam (XANAX) 0.25 mg tablet Take 1 tablet (0.25 mg total) by mouth daily as needed for anxiety. 30 tablet 5 10/20/2017 10/26/2018 documented in this encounter Progress Notes * Marcelo Garcia MD - 10/20/2017 1:00 PM CST Subjective/Objective Patient ID: Drea Caal is a 37 y.o. female. Chief Complaint Follow-up HPI P.E. She is here for her Annual Exam. Insomnia/anxiety responds to alprazolam as needed. She notes intermittent dysphagia. She had an episode of emesis several weeks ago after eating chicken. She drinks 4 cups of coffee a day. She chews gum. Review of Systems Constitutional: Negative. HENT: Negative for sore throat. Eyes: Negative for visual disturbance. Respiratory: Negative for shortness of breath. Cardiovascular: Negative for chest pain. Gastrointestinal: Negative for abdominal pain. Genitourinary: Negative for hematuria. Musculoskeletal: Negative for arthralgias. Skin: Negative for rash. Neurological: Negative for dizziness. Psychiatric/Behavioral: Positive for sleep disturbance. BP 112/60 (BP Location: Left arm, Patient Position: Sitting) Pulse 74 Temp 36.8 ??C (98.2 ??F) Resp 14 Ht 165.1 cm (5' 5 ) Wt 60.8 kg (134 lb) SpO2 98% BMI 22.30 kg/m?? Physical Exam Constitutional: She appears well-developed. HENT: Head: Normocephalic. Eyes: Pupils are equal, round, and reactive to light. Cardiovascular: Normal rate and regular rhythm. Pulmonary/Chest: Effort normal and breath sounds normal. Musculoskeletal: Normal range of motion. Neurological: She is alert. Skin: Skin is warm. Psychiatric: She has a normal mood and affect. Assessment/Plan Diagnoses and all orders for this visit: Annual physical exam (Primary) Assessment & Plan: Reviewed diet and exercise goals. Await Annual labs. Reviewed immunization and screening status.Continue alprazolam as needed for anxiety. Arrange UGI for dysphagia. Orders: - Comprehensive metabolic panel; Future - CBC without differential; Future - Lipid panel; Future Dysphagia, unspecified type - [place] Upper GI Series; Future BMI 22.0-22.9, adult Other orders - ALPRAZolam (XANAX) 0.25 mg tablet; Take 1 tablet (0.25 mg total) by mouth daily as needed for anxiety. SPHERIC DRIER TENDER * Marcelo Garcia MD - 10/20/2017 1:00 PM CST Call with no Diabetes, normal albs. Cholesterol is at goal (total is high because good is high). documented in this encounter Miscellaneous Notes * Assessment & Plan Note - Marcelo Garcia MD - 10/20/2017 12:36 PM ATMOSPHERIC DRIER TENDER Associated Problem(s): Annual physical exam Reviewed diet and exercise goals. Await Annual labs. Reviewed immunization and screening status.Continue alprazolam as needed for anxiety. Arrange UGI for dysphagia. SPHERIC DRIER TENDER SPHERIC DRIER TENDER documented in this encounter Plan of Treatment Scheduled Orders Name Type Priority Associated Diagnoses Orde r Schedule CBC without differential Lab Routine Annual physical exam Expected: 10/20/2017, Expires: 10/20/2018 documented as of this encounter Procedures Procedure Name Priority Date/Time Associated Diagnosis Comments CBC WITHOUT DIFFERENTIAL Routine 12/18/2017 10:54 AM CDT LIPID PANEL Routine 12/18/2017 10:54 AM CDT Annual physical exam COMPREHENSIVE METABOLIC PANEL Routine 12/18/2017 10:54 AM CDT Annual physical exam documented in this encounter Results * CBC without differential (12/18/2017 10:54 AM CDT) WBC 3.9 3.8 - 10.8 Thousand/uL [facility] [place] RBC, POC 4.15 3.80 - 5.10 Million/uL [facility] [place] Hgb 12.2 11.7 - 15.5 g/dL [facility] [place] Hct 36.3 35.0 - 45.0 % [facility] [place] MCV 87.5 80.0 - 100.0 fL [facility] [place] MCH 29.4 27.0 - 33.0 pg [facility] [place] MCHC 33.6 32.0 - 36.0 g/dL [facility] [place] Rdw 12.0 11.0 - 15.0 % [facility] [place] Platelets 252 140 - 400 Thousand/uL [facility] [place] MPV 9.9 7.5 - 12.5 fL [facility] [place] 12/18/2017 10:5 4 AM CDT 12/18/2017 10:54 AM CDT Narrative [facility] - 12/19/2017 1:34 AM CDT FASTING:NO FASTING: NO Resulting Agency Comment Performing Organization Information: ?Site ID: [place] ?Name: [employer] ?Address: [address] [place] [address] [place] [address] ?Director: Flo Elizalde D.O., MPH Marcelo Garcia MD LAB BLOOD ORDERABLES Final Re sult [facility] - [place], [place] * (ABNORMAL) Lipid panel (12/18/2017 10:54 AM CDT) Cholesterol 228(H) <200 mg/dL [facility] [place] HDL 90 >50 mg/dL [facility] [place] Triglycerides 81 <150 mg/dL [facility] [place] LDL 120(H) mg/dL (calc) [facility] [place] Comment: Reference range: <100 Desirable range <100 mg/dL for patients with CHD or diabetes and <70 mg/dL for diabetic patients with known heart disease. LDL-C is now calculated using the Homar-Gao calculation, which is a validated novel method providing better accuracy than the Friedewald equation in the estimation of LDL-C. Homar SS et al. ANTONIO. 2013;310(19): 4450-2526 (http://education.Sogou/faq/OFY095) Chol/HDL ratio 2.5 <5.0 (calc) [facility] [place] Non-HDL, (LDL+VLDL) 138(H) <130 mg/dL (calc) [facility] [place] Comment: For patients with diabetes plus 1 major ASCVD risk factor, treating to a non-HDL-C goal of <100 mg/dL (LDL-C of <70 mg/dL) is considered a therapeutic option. Blood specimen (specimen) 12/18/2017 10:54 AM CDT 12/18/2017 10:54 AM CDT Narrative [facility] - 12/19/2017 1:34 AM CDT FASTING:NO FASTING: NO Resulting Agency Comment Performing Organization Information: ?Site ID: [place] ?Name: [employer] ?Address: [address] [facility] [place] [address] ?Director: Flo Elizalde D.O., MPH Marcelo Garcia MD LAB BLOOD ORDERABLES Final Re sult [facility] [employer] [facility] [place] * Comprehensive metabolic panel (12/18/2017 10:54 AM CDT) [facility] Glucose 89 65 - 139 mg/dL [facility] [place] Comment: ? Non-fasting reference interval BUN 12 7 - 25 mg/dL [facility] [place] Creatinine 0.72 0.50 - 1.10 mg/dL [facility] [place] eGFR NON-AFR. IRISH 108 > OR = 60 mL/min/1. 73m2 [facility] [place] EGFR 125 > OR = 60 mL/min/1. 73m2 [facility] [place] BUN/creat ratio NOT APPLICABLE 6 - 22 (calc) [facility] [place] Sodium 136 135 - 146 mmol/L [facility] [place] Potassium, pl 4.4 3.5 - 5.3 mmol/L [facility] [place] Chloride 102 98 - 110 mmol/L [facility] [place] CO2 28 20 - 31 mmol/L [facility] [place] Calcium 9.3 8.6 - 10.2 mg/dL [facility] [place] Protein, sr 7.2 6.1 - 8.1 g/dL [facility] [place] Albumin 4.7 3.6 - 5.1 g/dL [facility] [place] GLOBULIN 2.5 1.9 - 3.7 g/dL (calc) [facility] [place] Alb/glob ratio 1.9 1.0 - 2.5 (calc) [facility] [place] Bilirubin, total 0.5 0.2 - 1.2 mg/dL [facility] [place] Alk phos 40 33 - 115 U/L [facility] [place] AST 14 10 - 30 U/L [facility] [place] ALT (SGPT) 8 6 - 29 U/L [facility] [place] Blood specimen (specimen) 12/18/2017 10:54 AM CDT 12/18/2017 10:54 AM CDT Narrative [facility] - 12/19/2017 1:34 AM CDT FASTING:NO FASTING: NO Resulting Agency Comment Performing Organization Information: ?Site ID: [place] ?Name: [employer] ?Address: [address] [place] [address] ?Director: Flo Elizalde D.O., MPH Marcelo Garcia MD LAB BLOOD ORDERABLES Final Re sult [facility] [place] documented in this encounter Visit Diagnoses Diagnosis Annual physical exam- Primary Routine general medical examination at a health care facility Dysphagia, unspecified type BMI 22.0-22.9, adult documented in this encounter Discontinued Medications Medication Sig Discontinue Reason Start Date End Da te ALPRAZolam (XANAX) 0.25 mg tablet Take one by mouth two times per day as needed Reorder 04/20/2009 10/20/2017 documented as of this encounter Care Teams Signal Constructor Relationship Specialty Start Date End Date Marcelo Garcia MD [address] [facility] [address] [place] [address] PCP - General 09/13/12 documented as of this encounter
--- OUTSIDE RECORDS SUMMARY | 2024-09-25 04:58 | XMS_ITS | Encounter Summary ---
Author Organization [facility] Facility Care Team Providers Care Dance Professor Name Role Phone Marcelo Garcia MD Primary Care Provider [phone] Encounter Details Date Type Department Care Team (Late st Contact Info) Description 02/10/2010 - 02/10/2010 11:59 PM CDT Hospital Encounter [facility] Marcelo Garcia MD [address] [place], [place] [id number] Backache; Headache Social History Tobacco Use Types Packs/Day Years Used Date Smoking Tobacco: Never Assessed Comments Unknown Sex and Gender Information Value Date Recorded Sex Assigned at Not on file Legal Sex Female 7:02 AM SURGICAL SERVICES MANAGER Gender Identity Female 09/15/2021 9:12 AM SURGICAL SERVICES MANAGER Sexual Orientation Straight 09/15/2021 9: 12 AM SURGICAL SERVICES MANAGER documented as of this encounter Medications at Time of Discharge ALPRAZolam (XANAX) 0.25 mg tablet Take one by mouth two times per day as needed 45 3 04/20/2009 10/20/2017 documented as of this encounter Plan of Treatment Not on file documented as of this encounter Visit Diagnoses Diagnosis Backache Unspecified backache Headache documented in this encounter Care Teams Dance Professor Relationship Specialty Start Date End Date Marcelo Garcia MD [address] [place], [place] [id number] PCP - General 12/14/06 10/31/11 documented as of this encounter
--- OUTSIDE RECORDS SUMMARY | 2024-09-25 04:58 | XMS_ITS | Encounter Summary ---
Author Organization [facility] Facility Care Team Providers Care Elementary Reading Tutor Name Role Phone Marcelo Garcia MD Primary Care Provider Encounter Details Date Type Department Care Team (Latest Contact Info) Description 10/31/2019 Travel Social History Tobacco Use Types Packs/Day Years Used Date Smoking Tobacco: Former Smokeless Tobacco: Never Alcohol Use Standard Drinks/Week Comments Yes 0 (1 standard drink = 0.6 oz pur e alcohol) socially PHQ-2 Answer Date Recorded PHQ-2 Score 0 05/10/2019 Comments No Sex and Gender Information Value Date Recorded Sex Assigned at Not on file Legal Sex Female 7:02 AM PRODUCTION ASSEMBLER Gender Identity Female 09/15/2021 9:12 AM PRODUCTION ASSEMBLER Sexual Orientation Straight 09/15/2021 9: 12 AM PRODUCTION ASSEMBLER documented as of this encounter Plan of Treatment Not on file documented as of this encounter Visit Diagnoses Not on filedocumented in this encounter Care Teams Elementary Reading Tutor Relationship Specialty Start Date End Date Marcelo Garcia MD [address] [facility] [address] [place] [address] PCP - General 09/13/12 documented as of this encounter
--- OUTSIDE RECORDS SUMMARY | 2024-09-25 04:58 | XMS_ITS | Encounter Summary ---
Author Organization [facility] Address [address] [place] [address] Care Team Providers Care Medical Management Trainer Name Role Phone Ashly Hylton MD Primary Care Provider Encounter Details Date Type Department Care Team (Late st Contact Info) Description 08/19/2021 3:15 PM COMMUNITY ADMINISTRATOR Office Visit [facility] [address] [place] [phone] Ashly Hylton MD [address] [facility] [address] [place], [place] [id number] Rash (Primary Dx) Social History Tobacco Use Types [...] on file Legal Sex Female 7:02 AM COMMUNITY ADMINISTRATOR Gender Identity Female 09/15/2021 9:12 AM COMMUNITY ADMINISTRATOR Sexual Orientation Straight 09/15/2021 9: 12 AM COMMUNITY ADMINISTRATOR documented as of this encounter Last Filed Vital Signs Vital Sign Reading Time Taken Comments Blood Pressure 106/77 08/19/2021 2:59 PM COMMUNITY ADMINISTRATOR Pulse 69 08/19/2021 2:59 PM COMMUNITY ADMINISTRATOR Temperature - - Respiratory Rate - - Oxygen Saturation 97% 08/19/2021 2:59 PM COMMUNITY ADMINISTRATOR Inhaled Oxygen Concentration - - Weight 61.2 kg (135 lb) 08/19/2021 2:59 PM COMMUNITY ADMINISTRATOR Height 165 cm (5' 4.96 ) 08/19/2021 2:59 PM COMMUNITY ADMINISTRATOR Body Mass Index 22.49 08/19/2021 2:59 PM COMMUNITY ADMINISTRATOR documented in this encounter Ordered Prescriptions Prescription Sig Dispense Quantity Refills Last Filled Start Date End Date griseofulvin (CARLOS-PEG) 250 mg tablet Take 1 tablet (250 mg total) by mouth daily 60 tablet 1 08/19/2021 10/06/2021 doxycycline (VIBRAMYCIN) 100 mg capsule Take 1 tablet/capsu le (100 mg total) by mouth 2 (two) times a day for 10 days 20 tablet/capsule 08/19/2021 08/29/2021 documented in this encounter Progress Notes * Ashly Hylton MD - 08/19/2021 3:15 PM CST Subjective/Objective Patient ID: Drea Caal is a 41 y.o. female. Chief Complaint Itchiness HPI 1.Itching. She notes itchiness in her scalp for over 2 months. She notes drainage. Her kids do not have similar symptoms. She has not changed shampoos. She tried a Psoriasis shampoo. She denies fevers. She does not color her hair. Review of Systems Constitutional: Negative for fatigue. HENT: Negative for sore throat. Respiratory: Negative for shortness of breath. Cardiovascular: Negative for chest pain. Gastrointestinal: Negative for abdominal pain. Musculoskeletal: Negative for back pain. Skin: Negative for rash. Neurological: Negative for dizziness. BP 106/77 (BP Location: Left arm, Patient Position: Sitting) Pulse 69 Ht 165 cm (5' 4.96 ) Wt61.2 kg (135 lb) SpO2 97% BMI 22.49 kg/m?? Physical Exam Constitutional: Appearance: She is well-developed. HENT: Head: Normocephalic. Eyes: Pupils: Pupils are equal, round, and reactive to light. Cardiovascular: Rate and Rhythm: Normal rate and regular rhythm. Pulmonary: Effort: Pulmonary effort is normal. Breath sounds: Normal breath sounds. Musculoskeletal: General: Normal range of motion. Skin: Comments: 2 inch in diameter plaque with honey crust with peripheral scale. Neurological: Mental Status: She is alert. Assessment/Plan Diagnoses and all orders for this visit: Rash (R21) (Primary) Assessment & Plan: DDX; tinea capitis and secondary staph Vs psoriasis with secondary staph. Treat tinea. Treat secondary staph with doxycycline. Orders: - Ambulatory referral to Dermatology; Future Other orders - doxycycline (VIBRAMYCIN) 100 mg capsule; Take 1 tablet/capsule (100 mg total) by mouth 2 (two) times a day for 10 days - griseofulvin (CARLOS-PEG) 250 mg tablet; Take 1 tablet (250 mg total) by mouth daily UNITY ADMINISTRATOR UNITY ADMINISTRATOR documented in this encounter Miscellaneous Notes * Assessment & Plan Note - Ashly Hylton MD - 08/19/2021 3:15 PM COMMUNITY ADMINISTRATOR Associated Problem(s): Rash DDX; tinea capitis and secondary staph Vs psoriasis with secondary staph. Treat tinea. Treat secondary staph with doxycycline. UNITY ADMINISTRATOR * Addendum Note - Ashly Hylton MD - 08/19/2021 3:15 PM CSTAddended by: ASHLY HYLTON on: 08/19/2021 03:22 PM Modules accepted: Orders UNITY ADMINISTRATOR documented in this encounter Plan of Treatment Not on file documented as of this encounter Visit Diagnoses Diagnosis Rash- Primary Rash and other nonspecific skin eruption documented in this encounter Care Teams Medical Management Trainer Relationship Specialty Start Date End Date Ashly Hylton MD [address] [address] PCP - General 09/13/12 documented as of this encounter
--- OUTSIDE RECORDS SUMMARY | 2024-09-25 04:58 | XMS_ITS | Encounter Summary ---
Author Organization [facility] Facility Care Team Providers Care Cafe Operator Name Role Phone Marcelo Garcia MD Primary Care Provider [phone] Encounter Details Date Type Department Care Team (Late st Contact Info) Description 12/15/2008 - 12/15/2008 11:59 PM CDT Hospital Encounter [facility] CLINCON[facility] Marcelo Garcia MD [address], [place] [id number] Other malaise and fatigue Social History Tobacco Use Types Packs/Day Years Used Date Smoking Tobacco: Never Assessed Comments Unknown Sex and Gender Information Value Date Recorded Sex Assigned at Not on file Legal Sex Female 7:02 AM PATTERN LAYOUT WORKER Gender Identity Female 09/15/2021 9:12 AM PATTERN LAYOUT WORKER Sexual Orientation Straight 09/15/2021 9: 12 AM PATTERN LAYOUT WORKER documented as of this encounter Plan of Treatment Not on file documented as of this encounter Visit Diagnoses Diagnosis Other malaise and fatigue documented in this encounter Care Teams Cafe Operator Relationship Specialty Start Date End Date Marcelo Garcia MD [address] [place] [address] PCP - General 12/14/06 10/31/11 documented as of this encounter
--- OUTSIDE RECORDS SUMMARY | 2024-09-25 04:58 | XMS_ITS | Encounter Summary ---
Author Organization [facility] Address [address] [place] [address] Care Team Providers Care Wares Sorter Name Role Phone Marcelo Garcia MD Primary Care Provider [phone] Encounter Details Date Type Department Care Team (Late st Contact Info) Description 09/03/2021 Orders Only [facility] [address] [place] [address] Marcelo Garcia MD [address] [facility] [place], [place] [id number] Social History Tobacco Use Types Packs/Day Years [...] on file Legal Sex Female 7:02 AM SALESPERSON FURNITURE Gender Identity Female 09/15/2021 9:12 AM SALESPERSON FURNITURE Sexual Orientation Straight 09/15/2021 9: 12 AM SALESPERSON FURNITURE documented as of this encounter Ordered Prescriptions Prescription Sig Dispense Quantity Refills Last Filled Start Date End Date fluocinonide (LIDEX) 0.05 % external solution Apply topically 2 (two) times a day as needed for irritation or rash 60 mL 11 09/03/2021 2 documented in this encounter Plan of Treatment Not on file documented as of this encounter Visit Diagnoses Not on filedocumented in this encounter Care Teams Wares Sorter Relationship Specialty Start Date End Date Marcelo Garcia MD [address] [address] PCP - General 09/13/12 documented as of this encounter
--- OUTSIDE RECORDS SUMMARY | 2024-09-25 04:58 | XMS_ITS | Encounter Summary ---
Author Organization [facility] Address [address] [place] [address] Care Team Providers Care Pear Picker Name Role Phone Marcelo Garcia MD Primary Care Provider Encounter Details Date Type Department Care Team (Late st Contact Info) Description 10/26/2018 Telephone [facility] [address] [place] [phone] Mikayla House MA Social History Tobacco Use Types Packs/Day Years Used Date Smoking Tobacco: Former Smokeless Tobacco: Never Alcohol Use Standard Drinks/Week Comments Yes 0 (1 standard drink = 0.6 oz pur e alcohol) socially Comments No Sex and Gender Information Value Date Recorded Sex Assigned at Not on file Legal Sex Female 7:02 AM GRAIN ELEVATOR OPERATOR Gender Identity Female 09/15/2021 9:12 AM GRAIN ELEVATOR OPERATOR Sexual Orientation Straight 09/15/2021 9: 12 AM GRAIN ELEVATOR OPERATOR documented as of this encounter Miscellaneous Notes * Telephone Encounter - Mikayla House MA - 10/26/2018 1:04 PM GRAIN ELEVATOR OPERATOR Rx for alprazolam called into [facility] N ELEVATOR OPERATOR documented in this encounter Plan of Treatment Not on file documented as of this encounter Visit Diagnoses Not on filedocumented in this encounter Care Teams Pear Picker Relationship Specialty Start Date End Date Marcelo Garcia MD [address] [facility] [address] [place], [place] [id number] PCP - General 09/13/12 documented as of this encounter
--- OUTSIDE RECORDS SUMMARY | 2024-09-25 04:58 | XMS_ITS | Encounter Summary ---
Author Organization [facility] Facility Care Team Providers Care Store Operations Specialist Name Role Phone Marcelo Garcia MD Primary Care Provider [phone] Encounter Details Date Type Department Care Team (Late st Contact Info) Description 01/09/2013 Hospital Encounter [facility] CLINCON[facility] Omaira Tierney MD [address] [place] [address] Rash and other nonspecific skin eruption; Scar condition and fibrosis of skin Social History Tobacco Use Types Packs/Day Years Used Date Smoking Tobacco: Never Assessed Comments Unknown Sex and Gender Information Value Date Recorded Sex Assigned at Not on file Legal Sex Female 7:02 AM HEATER ENGINEER HELPER Gender Identity Female 09/15/2021 9:12 AM HEATER ENGINEER HELPER Sexual Orientation Straight 09/15/2021 9: 12 AM HEATER ENGINEER HELPER documented as of this encounter Medications at Time of Discharge ALPRAZolam (XANAX) 0.25 mg tablet Take one by mouth two times per day as needed 45 3 04/20/2009 10/20/2017 documented as of this encounter Plan of Treatment Not on file documented as of this encounter Procedures Procedure Name Priority Date/Time Associated Diagnosis Comments CHEST RADIOGRAPHY, FRONTAL (AP), LATERAL Routine 01/09/2013 9:28 AM CDT SURGICAL PATHOLOGY 01/09/2013 documented in this encounter Results * CHEST RADIOGRAPHY, FRONTAL (AP), LATERAL (01/09/2013 9:28 AM CDT) Anatomical Region Laterality Modality N/A Radiographic Kira ging 01/09/2013 9:28 AM CDT Narrative 01/09/2013 10:37 AM CDT JOSE D BLUE M.D. FINAL REPORT ACC# ??Date Time ??Exam [id number] Jan 09, 2013 09:28:00 [id number] Chest 2 views Frontl & Lat EXAMINATION: ?? Two-view chest IMPRESSION: ?No pulmonary infiltrates effusions or nodules are seen. There is no lymphadenopathy. The cardiomediastinal silhouette is normal. The trachea is in the midline. Compared to the examination of 02/27/2007, there has been no interval change. Requested By: OMAIRA TIERNEY M.D. Dictated By: ?? JOSE D BLUE M.D. ??on Jan 09 2013 10:37A This document has been electronically signed by: JOSE D BLUE M.D. on Jan 09 2013 10:37A Procedure Note Provider, MD Sarah - 01/15/2017 JOSE D BLUE M.D. FINAL REPORT ACC# Date Time Exam [id number] Jan 09, 2013 09:28:00 [id number] Chest 2 views Frontl & Lat EXAMINATION: Two-view chest IMPRESSION: No pulmonary infiltrates effusions or nodules are seen. There is no lymphadenopathy. The cardiomediastinal silhouette is normal. The trachea is in the midline. Compared to the examination of 02/27/2007, there has been no interval change. Requested By: OMAIRA TIERNEY M.D. Dictated By: JOSE D BLUE M.D. on Jan 09 2013 10:37A This document has been electronically signed by: JOSE D BLUE M.D. on Jan 09 2013 10:37A us Historical Provider IMG XR PROCEDURES Final R esult * Surgical pathology (01/09/2013) Narrative 01/09/2013 Ordered by an unspecified provider. us Historical Provider LAB PATHOLOGY ORDERABLES Final Result documented in this encounter Visit Diagnoses Diagnosis Rash and other nonspecific skin eruption Scar condition and fibrosis of skin documented in this encounter Care Teams Store Operations Specialist Relationship Specialty Start Date End Date Marcelo Garcia MD [address] [address] PCP - General 09/13/12 documented as of this encounter
--- OUTSIDE RECORDS SUMMARY | 2024-09-25 04:58 | XMS_ITS | Encounter Summary ---
Author Organization [facility] Address [address] [place] [address] Care Team Providers Care Pallet Stone Positioner Name Role Phone Marcelo Garcia MD Primary Care Provider [phone] Reason for Referral * Diagnostic Imaging (Routine) - Closed Specialty Diagnoses / Procedures Referred By Zulma crowell Referred To Contact Diagnoses Breast lump in female Procedures US Breast Bilateral Limited US Breast Left Limited Mariella Batista MD PhD Phone: tel: fax: [address] [phone] Referral ID Status Reason Start Date Expiration Date Visits Re quested Visits Authorized [id number] Closed 08/21/2018 03/01/2020 1 1 SEPARATOR Reason for Visit * Diagnostic Imaging (Routine) - Closed Specialty Diagnoses / Procedures Referred By Zulma crowell Referred To Contact Diagnoses Breast lump in female Procedures Diagnostic Mammogram Bilateral [address] [place] Diagnostic Mammogram Left [address] Mariella Batista MD PhD Phone: tel: fax: [address] [phone] Referral ID Status Reason Start Date Expiration Date Visits Re quested Visits Authorized [id number] Closed 08/21/2018 03/01/2020 1 1 Encounter Details Date Type Department Care Team (Late st Contact Info) Description 09/20/2018 1:13 PM CHIP SEPARATOR - 09/20/2018 11:59 PM CHIP SEPARATOR Hospital Encounter [facility] ([facility]) [address] [place] [address] Mariella Batista MD PhD [address] [phone] [place] [address] Breast lump in female Discharge Disposition: Discharge to home or self care Social History Tobacco Use Types Packs/Day Years Used Date Smoking Tobacco: Former Alcohol Use Standard Drinks/Week Comments Yes 0 (1 standard drink = 0.6 oz pur e alcohol) socially Comments No Sex and Gender Information Value Date Recorded Sex Assigned at Not on file Legal Sex Female 7:02 AM CHIP SEPARATOR Gender Identity Female 09/15/2021 9:12 AM CHIP SEPARATOR Sexual Orientation Straight 09/15/2021 9: 12 AM CHIP SEPARATOR documented as of this encounter Medications at [...] Priority Date/Time Associated Diagnosis Comments US BREAST BILATERAL LIMITED Schedule Routine, Read Routine (OP Routine) 09/20/2018 2:49 PM CHIP SEPARATOR Breast lump in female DIAGNOSTIC MAMMOGRAM BILATERAL W DEDRICK Schedule Routine, Read Routine (OP Routine) 09/20/2018 2:07 PM CHIP SEPARATOR Breast lump in female documented in this encounter Results * US Breast Bilateral Limited (09/20/2018 2:49 PM CHIP SEPARATOR) Anatomical Region Laterality Modality Breast Bilateral Ultrasound 09/20/2018 2:57 PM CHIP SEPARATOR Impressions 09/20/2018 4:35 PM CHIP SEPARATOR 1. ??Questioned asymmetry in the subareolar RIGHT [...] Chema Molina M.D. Narrative 09/20/2018 4:35 PM CHIP SEPARATOR EXAMINATION: BILATERAL DIGITAL DIAGNOSTIC MAMMOGRAM INCLUDING CAD [...] BOTH breasts was performed by a trained cocoa mill operator and Drs. Perez and Jesse. BREAST [...] BOTH breasts was performed by a trained cocoa mill operator and Drs. Perez and Jesse. BREAST [...] M.D. Electronically signed by: Chema Molina M.D. us Mariella Batista MD PhD IMG MAMMO PROCEDURES Final Result * Diagnostic Mammogram Bilateral [address] [place] (09/20/2018 2:07 PM CHIP SEPARATOR) Anatomical Region Laterality Modality Breast Bilateral Mammography 09/20/2018 2:57 PM CHIP SEPARATOR Impressions 09/20/2018 4:35 PM CHIP SEPARATOR 1. ??Questioned asymmetry in the subareolar RIGHT [...] Chema Molina M.D. Narrative 09/20/2018 4:35 PM CHIP SEPARATOR EXAMINATION: BILATERAL DIGITAL DIAGNOSTIC MAMMOGRAM INCLUDING CAD [...] BOTH breasts was performed by a trained cocoa mill operator and Drs. Perez and Jesse. BREAST [...] BOTH breasts was performed by a trained cocoa mill operator and Drs. Perez and Jesse. BREAST [...] encounter Visit Diagnoses Diagnosis Breast lump in female Lump or mass in breast documented in this encounter Care Teams Pallet Stone Positioner Relationship Specialty Start Date End Date Marcelo Garcia MD [address] [facility] [address] [place] [address] PCP - General 09/13/12 documented as of this encounter
--- OUTSIDE RECORDS SUMMARY | 2024-09-25 04:58 | XMS_ITS | Encounter Summary ---
Author Organization [facility] Address [address] [place] [address] Care Team Providers Care Gas Plant Dispatcher Name Role Phone Marcelo Garcia MD Primary Care Provider [phone] Reason for Visit * Reason Onset Date Comments Radha- Medical Question 03/29/2019 Encounter Details Date Type Department Care Team (Late st Contact Info) Description 03/29/2019 Telephone [facility] [address] [facility] [address] [place] [phone] Marcelo Garcia MD [address] [facility] [address] [place] [address] Radha- Medical Question Social History Tobacco Use Types Packs/Day Years Used Date Smoking Tobacco: Former Smokeless Tobacco: Never Alcohol Use Standard Drinks/Week Comments Yes 0 (1 standard drink = 0.6 oz pur e alcohol) socially Comments No Sex and Gender Information Value Date Recorded Sex Assigned at Not on file Legal Sex Female 7:02 AM ROOM SERVICE SERVER Gender Identity Female 09/15/2021 9:12 AM ROOM SERVICE SERVER Sexual Orientation Straight 09/15/2021 9: 12 AM ROOM SERVICE SERVER documented as of this encounter Miscellaneous Notes * Telephone Encounter - Johana Street NP - 03/29/2019 1:45 PM CDT cipro eye drops sent * Telephone Encounter - Chapis Yost - 03/29/2019 1:15 PM CDT [facility] states that they are out of the Azithromycin (Azasite) 1%. [facility] Patient wanted the pharmacy to ask Edu Street (Dr. Garcia) know if there is an alternative? Please advise. Patient wants an answer today. Please advise. Callback #: [phone] * Telephone Encounter - Daniela Padilla MA - 03/29/2019 12:34 PM CDT Spoke to tech and was given the clarification * Telephone Encounter - Mikayla Deluca - 03/29/2019 12:24 PM CDT Medication Question/Clarification: Medication Name: Azithromycin (Azasite) 1% Question/Clarification: Need clarification on direction. Caller???s Callback#: [phone] Additional Comments: none Did you relay expectation for processing (allow up to 24 hours for call back)? Yes documented in this encounter Plan of Treatment Not on file documented as of this encounter Visit Diagnoses Not on filedocumented in this encounter Care Teams Gas Plant Dispatcher Relationship Specialty Start Date End Date Marcelo Garcia MD [id number] [place] [address] PCP - General 09/13/12 documented as of this encounter
--- OUTSIDE RECORDS SUMMARY | 2024-09-25 04:58 | XMS_ITS | Encounter Summary ---
Author Organization [facility] Address [address] [place] [address] Care Team Providers Care Truck Driver Flatbed Name Role Phone Marcelo Garcia MD Primary Care Provider [phone] Encounter Details Date Type Department Care Team (Late st Contact Info) Description 10/31/2019 8:00 AM CONCERT PIANIST Office Visit [facility] [address] [place] [id number] Marcelo Garcia MD [address] [facility] [address] [place], [place] [id number] Chronic bilateral low back pain without sciatica (Primary Dx) Social History Tobacco Use Types Packs/Day Years Used Date Smoking Tobacco: Former Smokeless Tobacco: Never Alcohol Use Standard Drinks/Week Comments Yes 0 (1 standard drink = 0.6 oz pur e alcohol) socially PHQ-2 Answer Date Recorded PHQ-2 Score 0 05/10/2019 Comments No Sex and Gender Information Value Date Recorded Sex Assigned at Not on file Legal Sex Female 7:02 AM CONCERT PIANIST Gender Identity Female 09/15/2021 9:12 AM CONCERT PIANIST Sexual Orientation Straight 09/15/2021 9: 12 AM CONCERT PIANIST documented as of this encounter Last Filed Vital Signs Vital Sign Reading Time Taken Comments Blood Pressure 104/72 10/31/2019 7:36 AM CONCERT PIANIST Pulse 70 10/31/2019 7:36 AM CONCERT PIANIST Temperature - - Respiratory Rate - - Oxygen Saturation - - Inhaled Oxygen Concentration - - Weight 60.8 kg (134 lb) 10/31/2019 7:36 AM CONCERT PIANIST Height 165.1 cm (5' 5 ) 10/31/2019 7:36 AM CONCERT PIANIST Body Mass Index 22.3 10/31/2019 7:36 AM CONCERT PIANIST documented in this encounter Progress Notes * Marcelo Garcia MD - 10/31/2019 8:00 AM CST Subjective/Objective Patient ID: Drea Caal is a 39 y.o. female. Chief Complaint Back Pain HPI 1.Back Pain. She complains of intermittent low back for 1 month. She denies change with aleve. She has a history of right sided sciatica. Symptoms are not like prior sciatica. She denies hematuria ordysuria. She denies trauma or heavy lifting. Her pain is a 2/10. She denies frequent UTIs. Review of Systems Constitutional: Negative. HENT: Negative for sore throat. Eyes: Negative for visual disturbance. Respiratory: Negative for shortness of breath. Cardiovascular: Negative for chest pain. Gastrointestinal: Negative for abdominal pain. Genitourinary: Negative for hematuria. Musculoskeletal: Positive for back pain. Negative for arthralgias. Skin: Negative for rash. Neurological: Negative for dizziness. BP 104/72 (BP Location: Left arm) Pulse 70 Ht 165.1 cm (5' 5 ) Wt 60.8 kg (134 lb) BMI 22.30 kg/m?? Physical Exam Constitutional: Appearance: She is well-developed. HENT: Head: Normocephalic. Eyes: Pupils: Pupils are equal, round, and reactive to light. Cardiovascular: Rate and Rhythm: Normal rate and regular rhythm. Pulmonary: Effort: Pulmonary effort is normal. Breath sounds: Normal breath sounds. Musculoskeletal: Comments: Pain palpation left flank. Skin: General: Skin is warm. Neurological: Mental Status: She is alert. Assessment/Plan Diagnoses and all orders for this visit: Chronic bilateral low back pain without sciatica (M54.5, G89.29) (Primary) Assessment & Plan: DDX; MSK, renal. Order UA and arrange renal US. Orders: - Urinalysis reflex to microscopic; Future - US Renal Limited; Future ERT PIANIST documented in this encounter Miscellaneous Notes * Assessment & Plan Note - Marcelo Garcia MD - 10/31/2019 7:40 AM CONCERT PIANIST Associated Problem(s): Chronic bilateral low back pain without sciatica DDX; MSK, renal. Order UA and arrange renal US. ERT PIANIST documented in this encounter Plan of Treatment Not on file documented as of this encounter Results * (ABNORMAL) Urinalysis reflex to microscopic (10/31/2019 8:22 AM CONCERT PIANIST) Color, ur Yellow Yellow [facility] Clarity, ur Clear Clear [facility] Specific gravity, ur 1.027(H) 1.010 - 1.025 [facility] pH, urine 5 [facility] Protein, ur ql Negative Negative [facility] Glucose, ur ql Negative Negative [facility] Ketones, ur Negative Negative [facility] Bilirubin, ur Negative Negative [facility] Blood, ur Negative Negative [facility] Urobilinogen, ur <2.0 <2.0 mg/dL [facility] Nitrite, ur Negative Negative [facility] Leukocyte esterase, ur Negative Negative [facility] UA reflex comment Reflex conditions for microscopic UA not met. [facility] Urine 10/31/2019 8:22 AM CONCERT PIANIST 10/31/2019 9:34 AM CONCERT PIANIST Narrative [facility] - 10/31/2019 9:43 AM CONCERT PIANIST ?? Urine pH is affected by diet, medications, systemic acid-base disturbances, and renal tubular function. ??pH may affect urinary stone formation. ??For example, urine pH below 6.0 may help reduce the tendency for calcium phosphate stones and pH greater than 6.0 may reduce the tendency for uric acid stone formation. Source: [place]. Last revised 09-28-2017 us Marcelo Garcia MD LAB URINE ORDERABLES Final Re sult [facility] [place] [address] documented in this encounter Visit Diagnoses Diagnosis Chronic bilateral low back pain without sciatica- Primary Chronic bilateral low back pain without sciatica documented in this encounter Care Teams Truck Driver Flatbed Relationship Specialty Start Date End Date Marcelo Garcia MD [address] [address] PCP - General 09/13/12 documented as of this encounter
--- OUTSIDE RECORDS SUMMARY | 2024-09-25 04:58 | XMS_ITS | Encounter Summary ---
Author Organization [facility] Address [address] [place] [address] Care Team Providers Care Husbandry Technician Name Role Phone Marcelo Garcia MD Primary Care Provider Encounter Details Date Type Department Care Team (Late st Contact Info) Description 03/29/2019 Telephone [facility] [address] [facility] [address] [place] [address] NP [address] [facility] [address] [place], [place] [id number] Social History Tobacco Use Types Packs/Day Years Used Date Smoking Tobacco: Former Smokeless Tobacco: Never Alcohol Use Standard Drinks/Week Comments Yes 0 (1 standard drink = 0.6 oz pur e alcohol) socially Comments No Sex and Gender Information Value Date Recorded Sex Assigned at Not on file Legal Sex Female 7:02 AM LEAD MANUFACTURING TECHNICIAN Gender Identity Female 09/15/2021 9:12 AM LEAD MANUFACTURING TECHNICIAN Sexual Orientation Straight 09/15/2021 9: 12 AM LEAD MANUFACTURING TECHNICIAN documented as of this encounter Ordered Prescriptions Prescription Sig Dispense Quantity Refills Last Filled Start Date End Date azithromycin (AZASITE) 1 % ophthalmic solutionIndications: Bacterial Conjunctivitis 1 drop BID x 1 day, then daily x 4 days 2.5 mL 03/29/2019 9 documented in this encounter Miscellaneous Notes * Telephone Encounter - Johana Street NP - 03/29/2019 11:59 AM CDT Eye drops sent documented in this encounter Plan of Treatment Not on file documented as of this encounter Visit Diagnoses Not on filedocumented in this encounter Care Teams Husbandry Technician Relationship Specialty Start Date End Date Marcelo Garcia MD [address] [facility] [address] [place] [address] PCP - General 09/13/12 documented as of this encounter
--- OUTSIDE RECORDS SUMMARY | 2024-09-25 04:58 | XMS_ITS | Encounter Summary ---
Author Organization [facility] Care Team Providers Care Electrical Continuity Inspector Name Role Phone Marcelo Garcia MD Primary Care Provider [phone] Encounter Details Date Type Department Care Team (Latest Contact Info) Description 06/20/2019 Travel Social History Tobacco Use Types Packs/Day Years Used Date Smoking Tobacco: Former Smokeless Tobacco: Never Alcohol Use Standard Drinks/Week Comments Yes 0 (1 standard drink = 0.6 oz pur e alcohol) socially PHQ-2 Answer Date Recorded PHQ-2 Score 0 05/10/2019 Comments No Sex and Gender Information Value Date Recorded Sex Assigned at Not on file Legal Sex Female 7:02 AM RESP THERAPIST Gender Identity Female 09/15/2021 9:12 AM RESP THERAPIST Sexual Orientation Straight 09/15/2021 9: 12 AM RESP THERAPIST documented as of this encounter Plan of Treatment Not on file documented as of this encounter Visit Diagnoses Not on filedocumented in this encounter Care Teams Electrical Continuity Inspector Relationship Specialty Start Date End Date Marcelo Garcia MD [address] [facility] [address] [place] [address] PCP - General 09/13/12 documented as of this encounter
--- OUTSIDE RECORDS SUMMARY | 2024-09-25 04:58 | XMS_ITS | Encounter Summary ---
Author Organization [facility] Address [address] [facility] [address] [place] [address] Phone Care Team Providers Care Residential Construction Instructor Name Role Phone Marcelo Garcia MD Primary Care Provider [phone] Reason for Visit * Reason Comments Follow-up pt felt a knot in LE FT breast * Consultation (Routine) - Closed Specialty Diagnoses / Procedures Referred By Zulma crowell Referred To Contact Surgical Oncology Diagnoses Left breast lump Evette Rodríguez MD Phone: tel: fax: Mariella Batista MD PhD Phone: tel: fax: Referral ID Status Reason Start Date Expiration Date V isits Requested Visits Authorized [id number] Closed Specialty Services Required 08/23/2018 09/26/2018 99 [phone] Encounter Details Date Type Department Care Team (Late st Contact Info) Description 09/20/2018 12:40 PM ORACLE DATABASE ANALYST Office Visit [facility] [address] [facility] [address] [place] [address] [place] [address] Mariella Batista MD PhD [address] [facility] [id number] [place] [address] Breast symptom (Primary Dx); Left breast lump Social History Tobacco Use Types Packs/Day Years Used Date Smoking Tobacco: Former Alcohol Use Standard Drinks/Week Comments Yes 0 (1 standard drink = 0.6 oz pur e alcohol) socially Comments No Sex and Gender Information Value Date Recorded Sex Assigned at Not on file Legal Sex Female 7:02 AM ORACLE DATABASE ANALYST Gender Identity Female 09/15/2021 9:12 AM ORACLE DATABASE ANALYST Sexual Orientation Straight 09/15/2021 9: 12 AM ORACLE DATABASE ANALYST documented as of this encounter Last Filed Vital Signs Vital Sign Reading Time Taken Comments Blood Pressure - - Pulse - - Temperature - - Respiratory Rate - - Oxygen Saturation - - Inhaled Oxygen Concentration - - Weight 63.5 kg (140 lb) 09/20/2018 12:33 PM ORACLE DATABASE ANALYST pt reported Height 165.1 cm (5' 5 ) 09/20/2018 12:33 PM ORACLE DATABASE ANALYST Body Mass Index 23.3 09/20/2018 12:33 PM ORACLE DATABASE ANALYST documented in this encounter Progress Notes * Mariella Batista MD PhD - 09/20/2018 12:40 PM CST Chief complaint: Left breast lump Evette Rodríguez, * requested that I see Drea Caal , SERVANDO 1980, in consultation for left breast lump. HPI: Patient is a 38 y.o. woman who felt a lump in her left breast in May. She says it causes her mild discomfort, mostly a pressure sensation when she lays on it. She otherwise has no aggravating or relieving factors. She has not noticed a change in size but she cannot always feel it. When she can feel it, it feels like a small pea. She had imaging at an outside facility and presents now for a second opinion. She has no other breast complaints. She specifically denies nipple discharge, skin redness, skin thickening, pain. REVENUE SPECIALIST HISTORY: Patient underwent menarche at age 14. She is and delivered her first child at age33. She has used oral contraceptives in the past and is not currently using them . She has not usedhormone replacement therapy in the past and is not currently using any. She is pre-menopausal. She denies a history of biopsy/surgeries to breast. Past Medical History: Diagnosis Date ??? HX OTHER MEDICAL elbow fracture Past Surgical History: Procedure Laterality Date ??? ORIF ELBOW FRACTURE Left 2006 ??? TONSILLECTOMY 2000 ??? WISDOM TOOTH EXTRACTION 1997 Medications: HOME MEDICATIONS : ALPRAZolam (XANAX) 0.25 mg tablet Allergies: Allergies Allergen Reactions ??? Penicillins Social History Substance Use Topics ??? Smoking status: Former Smoker ??? Smokeless tobacco: Not on file ??? Alcohol use Yes Comment: socially Family History: She has no family history of cancer. Review of systems: Review of systems is negative other than complaints as documented above or on the scanned patient health history form. Exam Vital signs: She is Height: 165.1 cm (5' 5 ) tall and weighs Weight: 63.5 kg (140 lb) (pt reported)lbs. General: Well-developed and well-nourished. Neuro: Patient is awake and alert and cooperative. Psych: Appropriate mood and affect for this visit. HEENT: Normocephalic, atraumatic. Anicteric sclera, extraocular eye movements intact, hearing is grossly intact. No nasal discharge. Moist mucous membranes. Neck: Supple without overt masses or adenopathy. Respiratory: There is no obvious wheezing or dyspnea. No use of accessory muscles of respiration. Cardiovascular: Pulse is regular. No peripheral edema. No jugular venous distention. Gastrointestinal: Abdomen is soft without evidence of peritonitis. Lymphatics: There is no cervical, supraclavicular, or infraclavicular adenopathy. Skin: There are no worrisome skin lesions in the examined skin. Breasts: She has grade 1 ptosis. The breasts are normal in contour. Bra size 36B. Right Breast: There is no obvious skin changes, dimpling, nor retraction. There is no palpable dominant mass. The nipple and areola are without erosion, ulceration, or obvious discharge. Examination of the axillary tail and contents shows no concerning mass or adenopathy. Left Breast: There is no obvious skin changes, dimpling, nor retraction. There are 2 small nodular densities at 8:30 5CFN and 9:30 5CFN, both associated with superficial veins. The nipple and areola are without erosion, ulceration, or obvious discharge. Examination of the axillary tail and contentsshows no concerning mass or adenopathy. Lab/Radiology/Diagnostic Review: I personally reviewed the imaging. Breast Imaging Outside Consult Result Date: 08/28/2018 Narrative: EXAMINATION: REVIEW AND INTERPRETATION OF OUTSIDE IMAGING FACILITY PERFORMING OUTSIDE IMAGING: [facility] EXAM(S) REVIEWED: 1. BILATERAL DIAGNOSTIC MAMMOGRAM WITH TOMOSYNTHESIS dated 06/29/2018, 8 images DATE OF INTERPRETATION: 08/28/2018 PHYSICIAN REQUESTING REVIEW: Dr. Batista, who is seeing the patient in the Breast Surgery Clinic. HISTORY: 38-year-old woman with a left breast palpable area of concern. COMPARISON: None. BREAST PARENCHYMAL COMPOSITION: The breasts areheterogenously dense, which may obscure small masses. FINDINGS: No suspicious mass, microcalcification, or architectural distortion in the left breast. In the right breast on the craniocaudal and exag gerated craniocaudal views there is an asymmetry in the anterior subareolar region. Outside ultrasound is not reinterpreted. By report, patient showed no correlate for the palpable area of concern. Impression: 1. No suspicious mammographic finding in the left breast account for the patient's reported palpable concern. 2. Asymmetry on the craniocaudal and exaggerated craniocaudal views of the right breast for which additional imaging is recommended. RECOMMENDATION: 1. If there is a persistent palpable area of concern, a repeat left diagnostic mammogram with tomosynthesis with a palpable marker in place and left breast ultrasound are recommended. 2. Additional views for the right breast asymmetry are recommended. NOTE: The findings, conclusions and recommendations within this report do not replace the initial findings, conclusions and recommendations made at the facility where the studywas performed based upon the imaging and clinical condition at that time. Review of the prior report and correlation with the clinical history are necessary. The provided images may or may not represent the [place] source data set and thus may contain changes which may lower the sensitivity of the second opinion interpretation. Dictated by: Boris Arevalo M.D. Electronically signed by: Chema Molina M.D. Diagnostic Mammogram Bilateral W Dedrick Us Breast Bilateral Limited Result Date: 09/20/2018 Narrative: EXAMINATION: BILATERAL DIGITAL DIAGNOSTIC MAMMOGRAM INCLUDING CAD [...] abnormality in the inner LEFT breast was identified on today's clinical exam. COMPARISON: Prior bilateral diagnostic mammogram dated 06/29/2018. TECHNIQUE: Full field digital mammographic views of BOTH breasts were performed,including computer aided detection (CAD) and BILATERAL digital breast tomosynthesis (DBT). Directed ultrasound evaluation of BOTH breasts was performed by a trained dough cutting machine operator and Drs. Ana Caba. BREAST PARENCHYMAL COMPOSITION: The breasts are heterogenously dense, which may obscure small masses. MAMMOGRAM FINDINGS: The questioned asymmetry in the subareolar RIGHT breast partially effaces on spot compression views and is most consistent with dense breast tissue. There are no suspicious [...] solid or cystic mass suggestive of malignancy. Impression: 1. Questioned asymmetry in the subareolar RIGHT breast corresponds with normal breast tissue. 2. No suspicious abnormalities at the palpable areas of concern in the inner LEFT breast. 3. Findings and recommendations were discussed with the patient. OVERALL FINAL ASSESSMENT: BI-RADS Category 1: Negative. Continued clinical follow-up is recommended. Unless earlier screening is clinically indicated, recommend annual screening mammography beginning at 40 years of age. Dictated by: Kishan Perez M.D. ASSESSMENT 1. Left breast symptom PLAN:Drea's area of palpable concern does not have an imaging correlate. She actually feels like possible thrombophlebitis given its distribution along blood vessels. We discussed the use of warm compresses and NSAIDs. She is of average risk for breast cancer and thus should start screening mammograms at the age of 41. She may return to see me on as-needed basis. I answered all her questions today. She knows to call with questions. Thank you for the kind referral and opportunity to be involved in the care of Drea Caal. Please call with questions. This note is dictated and transcribed by [employer]. Recreation Counselor variances may occur. Despite proofreading, typographical errors may occur. Cc: Evette Rodríguez, * This patient was seen with my Fellow Dr. Yany Dickinson. LE DATABASE ANALYST documented in this encounter Plan of Treatment Not on file documented as of this encounter Visit Diagnoses Diagnosis Breast symptom- Primary Left breast lump documented in this encounter Orders Outpatient Referral Count Last Ordered Date Fir st Ordered Date AMB REFERRAL TO SURGICAL ONCOLOGY 1 019 documented in this encounter Care Teams Residential Construction Instructor Relationship Specialty Start Date End Date Marcelo Garcia MD [address] [address] PCP - General 09/13/12 documented as of this encounter
--- OUTSIDE RECORDS SUMMARY | 2024-09-25 04:58 | XMS_ITS | Encounter Summary ---
Author Organization [facility] Facility Care Team Providers Care Board Liner Operator Name Role Phone Marcelo Garcia MD Primary Care Provider Encounter Details Date Type Department Care Team (Late st Contact Info) Description 09/13/2011 - 09/13/2011 11:59 PM COOKIE BREAKER Hospital Encounter [facility] Marcelo Garcia MD [address] [address] Routine general medical examination at a health care facility Social History Tobacco Use Types Packs/Day Years Used Date Smoking Tobacco: Never Assessed Comments Unknown Sex and Gender Information Value Date Recorded Sex Assigned at Not on file Legal Sex Female 7:02 AM COOKIE BREAKER Gender Identity Female 09/15/2021 9:12 AM COOKIE BREAKER Sexual Orientation Straight 09/15/2021 9: 12 AM COOKIE BREAKER documented as of this encounter Medications at Time of Discharge ALPRAZolam (XANAX) 0.25 mg tablet Take one by mouth two times per day as needed 45 3 04/20/2009 10/20/2017 documented as of this encounter Plan of Treatment Not on file documented as of this encounter Visit Diagnoses Diagnosis Routine general medical examination at a health care facility documented in this encounter Care Teams Board Liner Operator Relationship Specialty Start Date End Date Marcelo Garcia MD [address] [place], [place] [id number] PCP - General 12/14/06 10/31/11 documented as of this encounter
--- OUTSIDE RECORDS SUMMARY | 2024-09-25 04:58 | XMS_ITS | Encounter Summary ---
Author Organization [facility] Facility Care Team Providers Care Experimental Psychologist Name Role Phone Marcelo Garcia MD Primary Care Provider Encounter Details Date Type Department Care Team (Latest Contact Info) Description 2012 - 2012 11:59 PM CDT Hospital Encounter [facility] [place] [address] [facility] [address] [place] [address] Degenerative skin disorder Social History Tobacco Use Types Packs/Day Years Used Date Smoking Tobacco: Never Assessed Comments Unknown Sex and Gender Information Value Date Recorded Sex Assigned at Not on file Legal Sex Female 7:02 AM SPECIAL EVENTS COORDINATOR Gender Identity Female 09/15/2021 9:12 AM SPECIAL EVENTS COORDINATOR Sexual Orientation Straight 09/15/2021 9: 12 AM SPECIAL EVENTS COORDINATOR documented as of this encounter Medications at Time of Discharge ALPRAZolam (XANAX) 0.25 mg tablet Take one by mouth two times per day as needed 45 3 04/20/2009 10/20/2017 documented as of this encounter Plan of Treatment Not on file documented as of this encounter Visit Diagnoses Diagnosis Degenerative skin disorder documented in this encounter Care Teams Experimental Psychologist Relationship Specialty Start Date End Date Marcelo Garcia MD [address] [facility] [address] [place] [address] PCP - General 11/01/11 09/12/12 documented as of this encounter
--- OUTSIDE RECORDS SUMMARY | 2024-09-25 04:58 | XMS_ITS | Encounter Summary ---
Author Organization [facility] Address [address] [place] [address] Care Team Providers Care Leather Etcher Name Role Phone Marcelo Garcia MD Primary Care Provider [phone] Encounter Details Date Type Department Care Team (Late st Contact Info) Description 10/26/2018 1:00 PM CREDIT ANALYST Office Visit [facility] [address] [facility] [place] [phone] Marcelo Garcia MD [address] [facility] [address] [place], [place] [id number] Annual physical exam (Primary Dx) Social History Tobacco Use Types Packs/Day Years Used Date Smoking Tobacco: Former Smokeless Tobacco: Never Alcohol Use Standard Drinks/Week Comments Yes 0 (1 standard drink = 0.6 oz pur e alcohol) socially Comments No Sex and Gender Information Value Date Recorded Sex Assigned at Not on file Legal Sex Female 7:02 AM CREDIT ANALYST Gender Identity Female 09/15/2021 9:12 AM CREDIT ANALYST Sexual Orientation Straight 09/15/2021 9: 12 AM CREDIT ANALYST documented as of this encounter Last Filed Vital Signs Vital Sign Reading Time Taken Comments Blood Pressure 108/60 10/26/2018 12:25 PM CREDIT ANALYST Pulse 73 10/26/2018 12:25 PM CREDIT ANALYST Temperature 36.4 ??C (97.5 ??F) 10/26/2018 12:[address] Respiratory Rate 16 10/26/2018 12:25 PM CREDIT ANALYST Oxygen Saturation 99% 10/26/2018 12:25 PM CREDIT ANALYST Inhaled Oxygen Concentration - - Weight 64.4 kg (142 lb) 10/26/2018 12:25 PM CREDIT ANALYST Height 165.1 cm (5' 5 ) 10/26/2018 12:25 PM CREDIT ANALYST Body Mass Index 23.63 10/26/2018 12:25 PM CREDIT ANALYST documented in this encounter Ordered Prescriptions Prescription Sig Dispense Quantity Refills Last Filled Start Date End Date ALPRAZolam (XANAX) 0.25 mg tablet Take 1 tablet (0.25 mg total) by mouth daily as needed for anxiety. 30 tablet 5 10/26/2018 11/08/2022 documented in this encounter Progress Notes * Marcelo Garcia MD - 10/26/2018 1:00 PM CST Subjective/Objective Patient ID: Drea Caal is a 38 y.o. female. Chief Complaint Annual Exam HPI P.E. She is here for her Annul Exam. Anxiety responds to alprazolam as needed. At last visit she had an upper GI series that showed a hiatus hernia. Review of Systems Constitutional: Negative. HENT: Negative for sore throat. Eyes: Negative for visual disturbance. Respiratory: Negative for shortness of breath. Cardiovascular: Negative for chest pain. Gastrointestinal: Negative for abdominal pain. Genitourinary: Negative for hematuria. Musculoskeletal: Negative for arthralgias. Skin: Negative for rash. Neurological: Negative for dizziness. Psychiatric/Behavioral: The patient is nervous/anxious. BP 108/60 (BP Location: Right arm, Patient Position: Sitting) Pulse 73 Temp 36.4 ??C (97.5 ??F)(Oral) Resp 16 Ht 165.1 cm (5' 5 ) Wt 64.4 kg (142 lb) SpO2 99% BMI 23.63 kg/m?? Physical Exam Constitutional: She appears well-developed. HENT: Head: Normocephalic. Eyes: Pupils are equal, round, and reactive to light. Cardiovascular: Normal rate and regular rhythm. Pulmonary/Chest: Effort normal and breath sounds normal. Musculoskeletal: Normal range of motion. Neurological: She is alert. Skin: Skin is warm. Assessment/Plan Diagnoses and all orders for this visit: Annual physical exam (Z00.00) (Primary) Assessment & Plan: Reviewed diet and exercise goals. Await Annual labs. Reviewed immunization and screening status. Continue alprazolam as needed for anxiety. Reviewed history of hiatus hernia. Reviewed GERD diet. Orders: - Lipid panel; Future - Comprehensive metabolic panel; Future - CBC without differential; Future Other orders - ALPRAZolam (XANAX) 0.25 mg tablet; Take 1 tablet (0.25 mg total) by mouth daily as needed for anxiety. IT ANALYST * Marcelo Garcia MD - 10/26/2018 1:00 PM CST Call with no Diabetes, normal labs except cholesterol is mildly elevated. (total is 247, good is 82and bad is 145-goal is less than 130). Increase exercise and limit fried foods,red meat and shell fish. IT ANALYST documented in this encounter Miscellaneous Notes * Addendum Note - Danish Larios CLT - 10/26/2018 1:00 PM CSTAddended by: DANISH LARIOS on: 10/26/2018 12:58 PM Modules accepted: Orders IT ANALYST * Addendum Note - Danish Larios CLT - 10/26/2018 1:00 PM CSTAddended by: DANISH LARIOS on: 10/26/2018 12:58 PM Modules accepted: Orders IT ANALYST * Addendum Note - Danish Larios CLT - 10/26/2018 1:00 PM CSTAddended by: DANISH LARIOS on: 10/26/2018 01:10 PM Modules accepted: Orders IT ANALYST * Assessment & Plan Note - Marcelo Garcia MD - 10/26/2018 12:16 PM CREDIT ANALYST Associated Problem(s): Annual physical exam Reviewed diet and exercise goals. Await Annual labs. Reviewed immunization and screening status. Continue alprazolam as needed for anxiety. Reviewed history of hiatus hernia. Reviewed GERD diet. IT ANALYST documented in this encounter Plan of Treatment Not on file documented as of this encounter Procedures Procedure Name Priority Date/Time Associated Diagnosis Comments CBC WITHOUT DIFFERENTIAL Routine 10/26/2018 12:47 PM CREDIT ANALYST LIPID PANEL Routine 10/26/2018 12:47 PM CREDIT ANALYST COMPREHENSIVE METABOLIC PANEL Routine 10/26/2018 12:47 PM CREDIT ANALYST documented in this encounter Results * CBC without differential (10/26/2018 12:47 PM CREDIT ANALYST) WBC 6.0 3.8 - 10.8 Thousand/uL [facility] [place] RBC, POC 4.49 3.80 - 5.10 Million/uL [facility] [place] Hgb 13.1 11.7 - 15.5 g/dL [facility] [place] Hct 40.1 35.0 - 45.0 % [facility] [place] MCV 89.3 80.0 - 100.0 fL [facility] [place] MCH 29.2 27.0 - 33.0 pg [facility] [place] MCHC 32.7 32.0 - 36.0 g/dL [facility] [place] Rdw 11.7 11.0 - 15.0 % [facility] [place] Platelets 285 140 - 400 Thousand/uL [facility] [place] MPV 9.9 7.5 - 12.5 fL [facility] [place] 10/26/2018 12:4 7 PM CREDIT ANALYST 10/27/2018 6:12 AM CREDIT ANALYST Narrative Resulting Agency Comment Performing Organization Information: ?Site ID: [place] ?Name: [facility] ?Address: [address] [place], [place] [address] [address] ?Director: Flo Elizalde D.O., MPH us Marcelo Garcia MD LAB BLOOD ORDERABLES Final Re sult [facility] [place] Pretty * Comprehensive metabolic panel (10/26/2018 12:47 PM CREDIT ANALYST) Glucose 97 65 - 99 mg/dL [facility] [place] Comment: ? Fasting reference interval BUN 8 7 - 25 mg/dL [facility] [place] Creatinine 0.77 0.50 - 1.10 mg/dL [facility] [place] eGFR NON-AFR. [place] 99 > OR = 60 mL/min/1. 73m2 [facility] [place] EGFR 114 > OR = 60 mL/min/1. 73m2 [facility] [place] BUN/creat ratio NOT APPLICABLE 6 - 22 (calc) [facility] [place] Sodium 140 135 - 146 mmol/L [facility] [place] Potassium, pl 4.3 3.5 - 5.3 mmol/L [facility] [place] Chloride 104 98 - 110 mmol/L [facility] [place] CO2 28 20 - 32 mmol/L [facility] [place] Calcium 9.4 8.6 - 10.2 mg/dL [facility] [place] Protein, sr 7.6 6.1 - 8.1 g/dL [facility] [place] Albumin 5.1 3.6 - 5.1 g/dL [facility] [place] GLOBULIN 2.5 1.9 - 3.7 g/dL (calc) [facility] [place] Alb/glob ratio 2.0 1.0 - 2.5 (calc) [facility] [place] Bilirubin, total 0.5 0.2 - 1.2 mg/dL [facility] [place] Alk phos 51 33 - 115 U/L [facility] [place] AST 21 10 - 30 U/L [facility] [place] ALT (SGPT) 18 6 - 29 U/L [facility] [place] 10/26/2018 12:4 7 PM CREDIT ANALYST 10/27/2018 6:11 AM CREDIT ANALYST Narrative Resulting Agency Comment Performing Organization Information: ?Site ID: [place] ?Name: [facility] ?Address: [address] [address] [address] ?Director: Flo Elizalde D.O., MPH us Marcelo Garcia MD LAB BLOOD ORDERABLES Final Re sult [facility] - [place] gao * (ABNORMAL) Lipid panel (10/26/2018 12:47 PM CREDIT ANALYST) Cholesterol 247(H) <200 mg/dL [facility] [place] HDL 82 >50 mg/dL [facility] [place] Triglycerides 95 <150 mg/dL [facility] [place] LDL 145(H) mg/dL (calc) [facility] [place] Comment: Reference range: <100 Desirable range <100 mg/dL for primary prevention; ?? <70 mg/dL for patients with CHD or diabetic patients with > or = 2 CHD risk factors. LDL-C is now calculated using the [facility]cy calculation, which is a validated novel method providing better accuracy than the Friedewald equation in the estimation of LDL-C. Homar BOATENG et al. ANTONIO. 2013;310(19): 0053-9469 (http://education.TAKO/faq/EYT759) Chol/HDL ratio 3.0 <5.0 (calc) [facility] [place] Non-HDL, (LDL+VLDL) 165(H) <130 mg/dL (calc) [facility] [place] Comment: For patients with diabetes plus 1 major ASCVD risk factor, treating to a non-HDL-C goal of <100 mg/dL (LDL-C of <70 mg/dL) is considered a therapeutic option. 10/26/2018 12:4 7 PM CREDIT ANALYST 10/27/2018 6:11 AM CREDIT ANALYST Narrative Resulting Agency Comment Performing Organization Information: ?Site ID: [place] ?Name: [facility] ?Address: [address] [place], [place] [address] [address] ?Director: Flo Elizalde D.O., MPH us Marcelo Garcia MD LAB BLOOD ORDERABLES Final Re sult [facility] [place] documented in this encounter Visit Diagnoses Diagnosis Annual physical exam- Primary Routine general medical examination at a health care facility documented in this encounter Discontinued Medications Medication Sig Discontinue Reason Start Date End Da te ALPRAZolam (XANAX) 0.25 mg tablet Take 1 tablet (0.25 mg total) by mouth daily as needed for anxiety. Reorder 10/20/2017 10/26/2018 documented as of this encounter Orders Lab Orders Without Results Count Last Ordered D ate First Ordered Date CBC WITHOUT DIFFERENTIAL 1 10/26/2018 COMPREHENSIVE METABOLIC PANEL 1 10/26/2018 LIPID PANEL 1 10/26/2018 documented in this encounter Care Teams Leather Etcher Relationship Specialty Start Date End Date Marcelo Garcia MD [address] [facility] [facility] [address] [place] [address] PCP - General 09/13/12 documented as of this encounter
--- OUTSIDE RECORDS SUMMARY | 2024-09-25 04:58 | XMS_ITS | Encounter Summary ---
Author Organization [facility] Address [address] [place] [address] Phone Care Team Providers Care Field Talent Qualification Specialist Name Role Phone Marcelo Garcia MD Primary Care Provider [phone] Reason for Visit * Reason Onset Date Comments Insurance Referrals 09/20/2018 Encounter Details Date Type Department Care Team (Late st Contact Info) Description 09/20/2018 Telephone [facility] [address] [facility] [address] 5[address] [place] [phone] Tony Salazar MD [address] [place] [address] Insurance Referrals Social History Tobacco Use Types Packs/Day Years Used Date Smoking Tobacco: Former Alcohol Use Standard Drinks/Week Comments Yes 0 (1 standard drink = 0.6 oz pur e alcohol) socially PHQ-2 Answer Date Recorded PHQ-2 Score 0 05/10/2019 Comments No Sex and Gender Information Value Date Recorded Sex Assigned at Not on file Legal Sex Female 7:02 AM BROTH SETTER Gender Identity Female 09/15/2021 9:12 AM BROTH SETTER Sexual Orientation Straight 09/15/2021 9: 12 AM BROTH SETTER documented as of this encounter Miscellaneous Notes * Telephone Encounter - Jacqueline Leal - 12/17/2020 10:11 AM CDT STAFF INFORMED PT NO REFERRAL IN PLACE FOR Sep.[address] tony Salazar Outgoing call documented in this encounter Plan of Treatment Not on file documented as of this encounter Visit Diagnoses Not on filedocumented in this encounter Care Teams Field Talent Qualification Specialist Relationship Specialty Start Date End Date Marcelo Garcia MD [address] [address] PCP - General 09/13/12 documented as of this encounter
--- OUTSIDE RECORDS SUMMARY | 2024-09-25 04:58 | XMS_ITS | Encounter Summary ---
Author Organization [facility] Address [address] [place] [address] Care Team Providers Care Shore Working Supervisor Name Role Phone Marcelo Garcia MD Primary Care Provider [phone] Reason for Visit * Reason Onset Date Comments Eye Pain 03/29/2019 Encounter Details Date Type Department Care Team (Late st Contact Info) Description 03/29/2019 Nurse Triage [facility] [address] [place] [address] Marcelo Garcia MD [address] [facility] [address] [place], [place] [phone] Social History Tobacco Use Types Packs/Day Years Used Date Smoking Tobacco: Former Smokeless Tobacco: Never Alcohol Use Standard Drinks/Week Comments Yes 0 (1 standard drink = 0.6 oz pur e alcohol) socially Comments No Sex and Gender Information Value Date Recorded Sex Assigned at Not on file Legal Sex Female 7:02 AM TECHNICAL SUPPORT MANAGER Gender Identity Female 09/15/2021 9:12 AM TECHNICAL SUPPORT MANAGER Sexual Orientation Straight 09/15/2021 9: 12 AM TECHNICAL SUPPORT MANAGER documented as of this encounter Miscellaneous Notes * Telephone Encounter - Daniela Padilla MA - 03/29/2019 12:13 PM CDT Pt was notified that rx was sent to pharmacy * Telephone Encounter - Johana Street NP - 03/29/2019 12:01 PM CDT Azithromycin eye drops sent * Telephone Encounter - Bel Smalls RN - 03/29/2019 11:03 AM CDT Drea Caal calling in asking for a medicated eye drop to be called in. She thinks she has pink eye . She had this 2 years ago and is having same symptoms. L eye is itching, irritated and starting to water a clear drainage, L eye is sore. Onset today am. ?? Denies redness to sclera or around eye, no warmth, no swelling, no rashes, lumps or bumps noted. Novision problem. No fever or chills. No head or neck pain. No dizziness. No weakness or fatigue. ?? Declines an appt for now.Phamacy ?? Encouraged pt to keep eye area clean. Not to share products and use good handwashing technique. If pt has pink eye it is highly contagious. ?? Message routed to office for determination. ?? [place], [facility] Reason for Disposition ? ? Mild eye pain and present < 24 hours Protocols used: EYE [id number] ? * Telephone Encounter - Latonia Christine MA - 03/29/2019 10:56 AM CDT This is not our patient. Please re-route * Telephone Encounter - Bel Smalls RN - 03/29/2019 10:26 AM CDT Drea Caal calling in asking for a medicated eye drop to be called in. She thinks she has pink eye . She had this 2 years ago and is having same symptoms. L eye is itching, irritated and starting to water a clear drainage, L eye is sore. Onset today am. Denies redness to sclera or around eye, no warmth, no swelling, no rashes, lumps or bumps noted. Novision problem. No fever or chills. No head or neck pain. No dizziness. No weakness or fatigue. Declines an appt for now.Phamacy Encouraged pt to keep eye area clean. Not to share products and use good handwashing technique. If pt has pink eye it is highly contagious. Message routed to office for determination. Allergy-PCNs, [place] Reason for Disposition ? ? Mild eye pain and present < 24 hours Protocols used: EYE [id number] * Telephone Encounter - Bel Smalls RN - 03/29/2019 10:22 AM CDT Regarding: Pain in corner of left eye and runny feeling ----- Message from Lee Ann Montanez sent at 03/29/2019 10:20 AM CDT ----- Symptom Based Call Chief Complaint: Pain in corner of left eye and runny feeling Duration: This morning Appointment Details: declined Caller's Callback #: [phone] Additional Comments: Patient states she has had pink eye before and this feels like it. She is having pain in the corner of her left eye and her eye is watering. She would like to know if we can sendsomething in for her. If practice uses e-visit, condition meets e-visit criteria, and patient has MyChart did you offer e-visit?: n/a Did you relay expectation for call back (fashion consultant selling: Red Flag 10-15 min; non- emergent up to 3 hours)(Practice: Red Flag warm transfer; non-emergent up to 24 hours)? Yes documented in this encounter Plan of Treatment Not on file documented as of this encounter Visit Diagnoses Not on filedocumented in this encounter Care Teams Shore Working Supervisor Relationship Specialty Start Date End Date Marcelo Garcia MD [address] [address] PCP - General 09/13/12 documented as of this encounter
--- OUTSIDE RECORDS SUMMARY | 2024-09-25 04:58 | XMS_ITS | Encounter Summary ---
Author Organization [facility] Care Team Providers Care Department Coordinator Name Role Phone Marcelo Garcia MD Primary Care Provider [phone] Encounter Details Date Type Department Care Team (Late st Contact Info) Description 02/27/2007 - 02/27/2007 11:59 PM CDT Hospital Encounter [facility] Abena Jimenez MD [facility] [address] [place] [address] Social History Tobacco Use Types Packs/Day Years Used Date Smoking Tobacco: Never Assessed Comments Unknown Sex and Gender Information Value Date Recorded Sex Assigned at Not on file Legal Sex Female 7:02 AM GARBAGE PICK UP MAN Gender Identity Female 09/15/2021 9:12 AM GARBAGE PICK UP MAN Sexual Orientation Straight 09/15/2021 9: 12 AM GARBAGE PICK UP MAN documented as of this encounter Plan of Treatment Not on file documented as of this encounter Visit Diagnoses Not on filedocumented in this encounter Care Teams Department Coordinator Relationship Specialty Start Date End Date Marcelo Garcia MD [address] [facility] [address] [place], [place] [phone] PCP - General 12/14/06 10/31/11 documented as of this encounter
--- OUTSIDE RECORDS SUMMARY | 2024-09-25 04:58 | XMS_ITS | Encounter Summary ---
Author Organization [facility] Address [address] [place] [address] Care Team Providers Care Loom Tuner Name Role Phone Marcelo Garcia MD Primary Care Provider [phone] Encounter Details Date Type Department Care Team (Late st Contact Info) Description 10/31/2019 8:30 AM STRIKE ON MACHINE OPERATOR Lab [facility] Advanced Medicine [facility] ([facility]) [address] [place] [phone] Marcelo Garcia MD [address] [place] [address] [address] [place], [place] [id number] Chronic bilateral low back pain without sciatica Discharge Disposition: Discharge to home or self [...] on file Legal Sex Female 7:02 AM STRIKE ON MACHINE OPERATOR Gender Identity Female 09/15/2021 9:12 AM STRIKE ON MACHINE OPERATOR Sexual Orientation Straight 09/15/2021 9: 12 AM STRIKE ON MACHINE OPERATOR documented as of this encounter Discharge Disposition Disposition Code Departure Means Destination Discharge to home or self care documented in this encounter Plan of Treatment Not on file documented as of this encounter Procedures Procedure Name Priority Date/Time Associated Diagnosis Comments URINALYSIS AND REFLEX TO MICROSCOPIC Routine 10/31/2019 8:22 AM STRIKE ON MACHINE OPERATOR Chronic bilateral low back pain without sciatica documented in this encounter Results * (ABNORMAL) Urinalysis reflex to microscopic (10/31/2019 8:22 AM STRIKE ON MACHINE OPERATOR) Color, ur Yellow Yellow [facility] Clarity, ur Clear Clear [facility] Specific gravity, ur 1.027(H) 1.010 - 1.025 [facility] pH, urine 5 [facility] Protein, ur ql Negative Negative [facility] Glucose, ur ql Negative Negative [facility] Ketones, ur Negative Negative [facility] Bilirubin, ur Negative Negative [facility] Blood, ur Negative Negative [facility] Urobilinogen, ur <2.0 <2.0 mg/dL [facility] Nitrite, ur Negative Negative [facility] Leukocyte esterase, ur Negative Negative [facility] UA reflex comment Reflex conditions for microscopic UA not met. [facility] Urine 10/31/2019 8:22 AM STRIKE ON MACHINE OPERATOR 10/31/2019 9:34 AM STRIKE ON MACHINE OPERATOR Narrative [facility] - 10/31/2019 9:43 AM STRIKE ON MACHINE OPERATOR ?? Urine pH is affected by diet, medications, systemic acid-base disturbances, and renal tubular function. ??pH may affect urinary stone formation. ??For example, urine pH below 6.0 may help reduce the tendency for calcium phosphate stones and pH greater than 6.0 may reduce the tendency for uric acid stone formation. Source: [employer]. Last revised 09-28-2017 us Marcelo Garcia MD LAB URINE ORDERABLES Final Re sult [facility] Department [place] [address] documented in this encounter Visit Diagnoses Diagnosis Chronic bilateral low back pain without sciatica documented in this encounter Care Teams Loom Tuner Relationship Specialty Start Date End Date Marcelo Garcia MD [address] [facility] [address] [place] [address] PCP - General 09/13/12 documented as of this encounter
--- OUTSIDE RECORDS SUMMARY | 2024-09-25 04:58 | XMS_ITS | Encounter Summary ---
Author Organization [facility] Medical [facility] Address [address] [place] [address] Care Team Providers Care Loading Unit Tool Setter Name Role Phone Marcelo Garcia MD Primary Care Provider [phone] Encounter Details Date Type Department Care Team (Late st Contact Info) Description 06/20/2019 1:15 PM CDT Office Visit [facility] [address] [place] [phone] Marcelo Garcia MD [address] [facility] [address] [place], [place] [id number] Anxiety (Primary Dx); Chronic right-sided low back pain with right-sided sciatica Social History Tobacco Use Types Packs/Day Years Used Date Smoking Tobacco: Former Smokeless Tobacco: Never Alcohol Use Standard Drinks/Week Comments Yes 0 (1 standard drink = 0.6 oz pur e alcohol) socially PHQ-2 Answer Date Recorded PHQ-2 Score 0 05/10/2019 Comments No Sex and Gender Information Value Date Recorded Sex Assigned at Not on file Legal Sex Female 7:02 AM PREPARATION PLANT REPAIRER Gender Identity Female 09/15/2021 9:12 AM PREPARATION PLANT REPAIRER Sexual Orientation Straight 09/15/2021 9: 12 AM PREPARATION PLANT REPAIRER documented as of this encounter Last Filed Vital Signs Vital Sign Reading Time Taken Comments Blood Pressure 104/74 06/20/2019 12:51 PM CDT Pulse 74 06/20/2019 12:51 PM CDT Temperature 36.8 ??C (98.2 ??F) 06/20/2019 1 2:51 PM CDT Respiratory Rate 16 06/20/2019 12:5 1 PM CDT Oxygen Saturation 96% 06/20/2019 12: 51 PM CDT Inhaled Oxygen Concentration - - Weight 62.1 kg (136 lb 12.8 oz) 019 12:51 PM CDT Height 165.1 cm (5' 5 ) 06/20/2019 12:5 1 PM CDT Body Mass Index 22.76 06/20/2019 12:51 PM CDT documented in this encounter Progress Notes * Marcelo Garcia MD - 06/20/2019 1:15 PM CDT Subjective/Objective Patient ID: Drea Caal is a 39 y.o. female. Chief Complaint Anxiety HPI 1.Anxiety. Anxiety responds to alprazolam as needed. 2.Back Pain. She has intermittent right back pain and periodic sciatica. She denies change in bowel/bladder habits. Review of Systems Constitutional: Negative. HENT: Negative for sore throat. Eyes: Negative for visual disturbance. Respiratory: Negative for shortness of breath. Cardiovascular: Negative for chest pain. Gastrointestinal: Negative for abdominal pain. Genitourinary: Negative for hematuria. Musculoskeletal: Positive for back pain. Negative for arthralgias. Skin: Negative for rash. Neurological: Negative for dizziness. Psychiatric/Behavioral: The patient is nervous/anxious. BP 104/74 (BP Location: Left arm, Patient Position: Sitting) Pulse 74 Temp 36.8 ??C (98.2 ??F) (Oral) Resp 16 Ht 165.1 cm (5' 5 ) Wt 62.1 kg (136 lb 12.8 oz) SpO2 96% BMI 22.76 kg/m?? Physical Exam Constitutional: She appears well-developed. HENT: Head: Normocephalic. Eyes: Pupils are equal, round, and reactive to light. Cardiovascular: Normal rate and regular rhythm. Pulmonary/Chest: Effort normal and breath sounds normal. Musculoskeletal: Pain L4 on the right. Neurological: She is alert. Skin: Skin is warm. Assessment/Plan Diagnoses and all orders for this visit: Anxiety (F41.9) (Primary) Assessment & Plan: Continue alprazolam as needed. Chronic right-sided low back pain with right-sided sciatica (M54.41, G89.29) Assessment & Plan: Reviewed ergonomics. Reviewed XRAY. documented in this encounter Miscellaneous Notes * Assessment & Plan Note - Marcelo Garcia MD - 06/20/2019 1:12 PM CDT Associated Problem(s): Chronic bilateral low back pain without sciatica Reviewed ergonomics. Reviewed XRAY. * Assessment & Plan Note - Marcelo Garcia MD - 06/20/2019 12:55 PM CDT Associated Problem(s): Anxiety Continue alprazolam as needed. documented in this encounter Plan of Treatment Not on file documented as of this encounter Visit Diagnoses Diagnosis Anxiety- Primary Anxiety state, unspecified Chronic right-sided low back pain with right-sided sciatica documented in this encounter Care Teams Loading Unit Tool Setter Relationship Specialty Start Date End Date Marcelo Garcia MD [address] [address] PCP - General 09/13/12 documented as of this encounter
--- OUTSIDE RECORDS SUMMARY | 2024-09-25 04:58 | XMS_ITS | Encounter Summary ---
Author Organization [facility] Facility Care Team Providers Care General Surgeon Name Role Phone Marcelo Garcia MD Primary Care Provider Encounter Details Date Type Department Care Team (Late st Contact Info) Description 11/09/2009 - 11/09/2009 11:59 PM LINEN WORKER Hospital Encounter [facility] Marcelo Garcia MD [address] [facility] [address] [place], [place] [phone] Palpitations Social History Tobacco Use Types Packs/Day Years Used Date Smoking Tobacco: Never Assessed Comments Unknown Sex and Gender Information Value Date Recorded Sex Assigned at Not on file Legal Sex Female 7:02 AM LINEN WORKER Gender Identity Female 09/15/2021 9:12 AM LINEN WORKER Sexual Orientation Straight 09/15/2021 9: 12 AM LINEN WORKER documented as of this encounter Medications at Time of Discharge ALPRAZolam (XANAX) 0.25 mg tablet Take one by mouth two times per day as needed 45 3 04/20/2009 10/20/2017 documented as of this encounter Plan of Treatment Not on file documented as of this encounter Visit Diagnoses Diagnosis Palpitations documented in this encounter Care Teams General Surgeon Relationship Specialty Start Date End Date Marcelo Garcia MD [address] [facility] [address] [place], [place] [id number] PCP - General 12/14/06 10/31/11 documented as of this encounter
--- OUTSIDE RECORDS SUMMARY | 2024-09-25 04:58 | XMS_ITS | Encounter Summary ---
Author Organization [facility] Address [facility] [place] [address] Care Team Providers Care Adult Basic Studies Teacher Name Role Phone Marcelo Garcia MD Primary Care Provider [phone] Encounter Details Date Type Department Care Team (Latest Contact Info) Description 08/27/2018 5:50 PM YOUTH COUNSELOR - 08/27/2018 11:59 PM YOUTH COUNSELOR Hospital Encounter [facility] [address] [place] [id number] Discharge Disposition: Discharge to home or self care Social History Tobacco Use Types Packs/Day Years Used Date Smoking Tobacco: Former Alcohol Use Standard Drinks/Week Comments Yes 0 (1 standard drink = 0.6 oz pur e alcohol) Comments Unknown Sex and Gender Information Value Date Recorded Sex Assigned at Not on file Legal Sex Female 7:02 AM YOUTH COUNSELOR Gender Identity Female 09/15/2021 9:12 AM YOUTH COUNSELOR Sexual Orientation Straight 09/15/2021 9: 12 AM YOUTH COUNSELOR documented as of this encounter Medications at [...] Date/Time Associated Diagnosis Comments BREAST IMAGING OUTSIDE CONSULT Schedule Routine, Read Routine (OP Routine) 08/27/2018 5:50 PM YOUTH COUNSELOR Breast lump in female documented in this encounter Results * Breast Imaging Outside Consult (08/27/2018 5:50 PM YOUTH COUNSELOR) Anatomical Region Laterality Modality Breast N/A Mammography 08/28/2018 8:58 AM YOUTH COUNSELOR Impressions 08/28/2018 9:17 AM YOUTH COUNSELOR 1. ??No suspicious mammographic finding in the left breast account for the patient's reported palpable concern. 2. ??Asymmetry on the craniocaudal and exaggerated craniocaudal views of the right breast for which additional imaging is recommended. RECOMMENDATION: 1. ??If there is a persistent palpable area of concern, a repeat left diagnostic mammogram with tomosynthesis with a palpable marker in place and left breast ultrasound are recommended. 2. ??Additional views for the right breast asymmetry are recommended. NOTE: The findings, conclusions and recommendations within this report do not replace the initial findings, conclusions and recommendations made at the facility where the study was performed based upon the imaging and clinical condition at that time. ??Review of the prior report and correlation with the clinical history are necessary. The provided images may or may not represent the [place] source data set and thus may contain changes which may lower the sensitivity of the second opinion interpretation. Dictated by: Boris Arevalo M.D. Electronically signed by: Chema Molina M.D. Narrative 08/28/2018 9:17 AM YOUTH COUNSELOR EXAMINATION: REVIEW AND INTERPRETATION OF OUTSIDE IMAGING FACILITY PERFORMING OUTSIDE IMAGING: [facility] EXAM(S) REVIEWED: 1. ?? BILATERAL DIAGNOSTIC MAMMOGRAM WITH TOMOSYNTHESIS dated 06/29/2018, 8 images DATE OF INTERPRETATION: 08/28/2018 PHYSICIAN REQUESTING REVIEW: Dr. Batista, who is seeing the patient in the [facility]. HISTORY: 38-year-old woman with a left breast palpable area of concern. COMPARISON: None. BREAST PARENCHYMAL COMPOSITION: The breasts are heterogenously dense, which may obscure small masses. FINDINGS: No suspicious mass, microcalcification, or architectural distortion in the left breast. ??In the right breast on the craniocaudal and exaggerated craniocaudal views there is an asymmetry in the anterior subareolar region. Outside ultrasound is not reinterpreted. ??By report, patient showed no correlate for the palpable area of concern. Procedure Note Chema Molina MD - 08/28/2018 EXAMINATION: REVIEW AND INTERPRETATION OF OUTSIDE IMAGING FACILITY PERFORMING OUTSIDE IMAGING: [facility] EXAM(S) REVIEWED: 1. BILATERAL DIAGNOSTIC MAMMOGRAM WITH TOMOSYNTHESIS dated 06/29/2018, 8 images DATE OF INTERPRETATION: 08/28/2018 PHYSICIAN REQUESTING REVIEW: Dr. Batista, who is seeing the patient in the Breast Surgery Clinic. HISTORY: 38-year-old woman with a left breast palpable area of concern. COMPARISON: None. BREAST PARENCHYMAL COMPOSITION: The breasts are heterogenously dense, which may obscure small masses. FINDINGS: No suspicious mass, microcalcification, or architectural distortion in the left breast. In the right breast on the craniocaudal and exaggerated craniocaudal views there is an asymmetry in the anterior subareolar region. Outside ultrasound is not reinterpreted. By report, patient showed no correlate for the palpable area of concern. IMPRESSION: 1. No suspicious mammographic finding in the [...] recommendations made at the facility where the study was performed based upon the imaging and clinical condition at that time. Review of the prior report and correlation with the clinical history are necessary. The provided images may or may not represent the [place] source data set and thus may contain changes which may lower the sensitivity of the second opinion interpretation. Dictated by: Boris Arevalo M.D. Electronically signed by: Chema Molina M.D. Mariella Batista MD PhD IMG MAMMO PROCEDURES Final Result documented in this encounter Visit Diagnoses Not on filedocumented in this encounter Care Teams Adult Basic Studies Teacher Relationship Specialty Start Date End Date Marcelo Garcia MD [address] [facility] [address] [place] [address] PCP - General 09/13/12 documented as of this encounter
--- OUTSIDE RECORDS SUMMARY | 2024-09-25 04:58 | XMS_ITS | Encounter Summary ---
Author Organization [facility] Medical [facility] Address [address] [place] [address] Care Team Providers Care Brand Attendant Name Role Phone Marcelo Garcia MD Primary Care Provider Reason for Visit * Reason Onset Date Comments Med Refill 03/29/2019 Encounter Details Date Type Department Care Team (Late st Contact Info) Description 03/29/2019 Telephone [facility] [address] [place] [phone] Marcelo Garcia MD [address] [facility] [address] [place], [place] [phone] Med Refill Social History Tobacco Use Types Packs/Day Years Used Date Smoking Tobacco: Former Smokeless Tobacco: Never Alcohol Use Standard Drinks/Week Comments Yes 0 (1 standard drink = 0.6 oz pur e alcohol) socially Comments No Sex and Gender Information Value Date Recorded Sex Assigned at Not on file Legal Sex Female 7:02 AM YOLK SPRAY DRIER Gender Identity Female 09/15/2021 9:12 AM YOLK SPRAY DRIER Sexual Orientation Straight 09/15/2021 9: 12 AM YOLK SPRAY DRIER documented as of this encounter Ordered Prescriptions Prescription Sig Dispense Quantity Refills Last Filled Start Date End Date ciprofloxacin (CILOXAN) 0.3 % ophthalmic solution Administer 1 drop into the left eye every 2 (two) hours 1gtt, q 2hr, while awake,x 2 days.Then 1gtt, q 4hr, while awake,x 5 days 5 mL 03/29/2019 2 documented in this encounter Miscellaneous Notes * Telephone Encounter - Johana Street NP - 03/29/2019 1:40 PM CDT New eye drops sent documented in this encounter Plan of Treatment Not on file documented as of this encounter Visit Diagnoses Not on filedocumented in this encounter Discontinued Medications Medication Sig Discontinue Reason Start Date End Da te azithromycin (AZASITE) 1 % ophthalmic solutionIndications:Bacteri al Conjunctivitis 1 drop BID x 1 day, then daily x 4 days Alternate therapy 03/29/2019 03/29/2019 documented as of this encounter Care Teams Brand Attendant Relationship Specialty Start Date End Date Marcelo Garcia MD [address] [address] PCP - General 09/13/12 documented as of this encounter
--- OUTSIDE RECORDS SUMMARY | 2024-09-25 04:58 | XMS_ITS | Encounter Summary ---
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 Name Role Phone Marcelo Garcia MD Primary Care Provider Reason for Visit * Reason Onset Date Comments Appt for GI 10/20/2017 Encounter Details Date Type Department Care Team (Late st Contact Info) Description 10/20/2017 Telephone [facility] [address] [place] [phone] Marcelo Garcia MD [address] [facility] [address] [place] [address] Appt for GI Social History Tobacco Use Types Packs/Day Years Used Date Smoking Tobacco: Former Alcohol Use Standard Drinks/Week Comments Yes 0 (1 standard drink = 0.6 oz pur e alcohol) Comments Unknown Sex and Gender Information Value Date Recorded Sex Assigned at Not on file Legal Sex Female 7:02 AM 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 Pt stated that time would not work I advised pt of phone number to call and cancel or reschedule. LATORY AFFAIRS SPECIALIST documented in this encounter Plan of Treatment Not on file documented as of this encounter Visit Diagnoses Not on filedocumented in this encounter Care Teams Biological Plant Operator Relationship Specialty Start Date End Date Marcelo Garcia MD [address] [address] PCP - General 09/13/12 documented as of this encounter
== END 2024-09-18 09:45 | disposition left against medical advice (07) ==
PROVIDERS: Emergency Provider Student in an Organized Health Care Education/Training Program
DX: R07.9 Chest pain, unspecified (principal)
CPT/HCPCS: 36415; 80053; 83690; 84484; 85025; 85610; 85730; 93005; 99199